=== PATIENT | female | born 1985 | race Caucasian/White ===

== ENCOUNTER 2017-07-08 18:37 | Emergency (ER) | payer SELFPAY ==
[2017-07-08] MEDS ORDERED: ONDANSETRON 4 MG (ODT) TAB ONE (19:30)
[2017-07-08] MEDS ORDERED: TRAMADOL HCL 50 MG TAB ONE (19:30)
--- NOTE | 2017-07-08 19:34 | RAD REPORT ---
EXAM DESCRIPTION: CT - Head Brain Wo Cont - 07/08/2017 7:19 pm CLINICAL HISTORY: Head injury after at 4 p.m. today. Hit head on light COMPARISON: 2015 TECHNIQUE: Computed axial tomography of the head was obtained. IV contrast was not requested. All CT scans are performed using dose optimization technique as appropriate and may include automated exposure control or mA/KV adjustment according to patient size. FINDINGS: An intracranial bleed is not seen . The ventricles are normal in caliber. No extra-axial fluid collection is noted. Fluid within the sinuses/ mastoids is not seen. IMPRESSION: No acute intracranial abnormality is seen. If patient's symptoms persist MRI of the bra in would be recommended.
--- NOTE | 2017-07-08 20:18 | EDPHYS ---
Physician Documentation [facility] Name: Veronica Valentin Age: 31 yrs Sex: Female : 1985 Arrival Date: 07/08/2017 Time: 18:40 Bed 6 Private MD: ED Physician Reggie Baez HPI: 07/08 19:12 This 31 yrs old Female presents to ER via EMS with complaints of Head Injury pkl Without LOC-Adult. 19:12 The patient or guardian reports injury, pain. The complaints affect the top of head. pkl Context of injury: resulted from a direct blow, Hit by fan. Onset: The symptoms/episode began/occurred last night. Associated signs and symptoms: Loss of consciousness: This patient did not experience any loss of consciousness. Pertinent positives: headache, nausea. 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 - Social history:: Smoking status: Patient uses tobacco products. ROS: 19:12 Eyes: Negative for injury, pain, redness, and discharge, ENT: Negative for injury, pkl pain, and discharge, Neck: Negative for injury, pain, and swelling, Cardiovascular: Negative for chest pain, palpitations, and edema, Respiratory: Negative for shortness of breath, cough, wheezing, and pleuritic chest pain. 19:12 Abdomen/GI: Positive for nausea. 19:12 Back: Negative for injury or acute deformity, acute changes. 19:12 : Negative for urinary symptoms. 19:12 MS/extremity: Negative for acute changes. 19:12 Skin: Negative for rash. 19:12 Neuro: Negative for altered mental status. Exam: 19:12 Eyes: Pupils equal round and reactive to light, extra-ocular motions intact. Lids and pkl lashes normal. Conjunctiva and sclera are non-icteric and not injected. Cornea within normal limits. Periorbital areas with no swelling, redness, or edema. 19:12 Head/face: Noted is contusion, of the top of head. 19:12 ENT: Exam is negative for acute changes. 19:12 Neck: Exam negative for nuchal rigidity. 19:12 Chest/axilla: Exam negative for acute changes. 19:12 Cardiovascular: Rate: normal, Rhythm: regular. 19:12 Respiratory: the patient does not display signs of respiratory distress, Respirations: normal, Breath sounds: are clear throughout. 19:12 Abdomen/GI: Bowel sounds: normal, Palpation: abdomen is soft and non-tender, in all quadrants. 19:12 Back: Exam negative for acute changes. 19:12 : Exam negative for acute changes. 19:12 Musculoskeletal/extremity: Exam is negative for acute changes. 19:12 Skin: Exam negative for rash. 19:12 Neuro: Orientation: is normal, Mentation: is normal, Cranial nerves: grossly normal, Motor: is normal. Vital Signs: 18:49 BP 105 / 54; Pulse 84; Resp 16 S; Temp 97.7(O); Pulse Ox 99% on R/A; Weight 48.99 kg jl7 (R); Height 5 ft. 7 in. (170.18 cm) (R); Pain 8/10; 20:26 BP 104 / 66; Pulse 58; Resp 18 S; Temp 98.0; Pulse Ox 100% on R/A; Pain 0/10; ea 18:49 Body Mass Index 16.92 (48.99 kg, 170.18 cm) jl7 Mary Coma Score: 19:12 Eye Response: spontaneous(4). Verbal Response: oriented(5). Motor Response: obeys pkl commands(6). Total: 15. MDM: 19:04 Patient medically screened. pkl 20:17 Data reviewed: vital signs, nurses notes, radiologic studies, CT scan. pkl 07/08 19:11 Order name: CT Head Brain wo Cont; Complete Time: 20:15 pkl Administered Medications: 19:14 Drug: UltRAM 50 mg Route: PO; ak1 20:36 Follow up: Response: No adverse reaction; Pain is decreased ak1 19:15 Drug: Zofran 4 mg Route: PO; ak1 20:37 Follow up: Response: No adverse reaction; Pain is decreased ak1 Disposition: 07/08/17 20:18 Discharged to Home. Impression: Acute headache. S/P head injury. - Condition is Stable. - Prescriptions for Ultram 50 mg Oral Tablet - take 1 tablet by ORAL route every 8 hours As needed; 15 tablet. Zofran 4 mg Oral Tablet - take 1 tablet by ORAL route every 12 hours As needed; 6 tablet. - Medication Reconciliation Form, Thank You Letter, Antibiotic Education, Prescription Opioid Use form. - Follow up: Private Physician; When: 2 - 3 days; Reason: Re-evaluation by your physician. - Problem is new. - Symptoms have improved. Signatures: Dispatcher [employer] EDReggie Mullins MD MD pkl Krenek, Amber RN RN ak1 Ashlie Peterson RN RN jl7 Elenita Ashraf RN RN ea
--- NOTE | 2017-07-08 20:18 | ER ---
Nurse's Notes [facility] Name: Veronica Valentin Age: 31 yrs Sex: Female : 1985 Arrival Date: 07/08/2017 Time: 18:40 Bed 6 Private MD: Diagnosis: Acute headache. S/P head injury Presentation: 07/08 18:45 Presenting complaint: EMS states: At 2300 last night she got hit in the head with a fan jl7 while putting up rope lights. Today at 1600 while at [facility] she got nauseated and started having a severe ARREDONDO. Transition of care: patient was not received from another setting of care. Onset of symptoms was July 08, 2017 at 14:00. Care prior to arrival: IV initiated. 20 GA, in the right forearm. 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 - Social history:: Smoking status: Patient uses tobacco products. Screenin:16 Abuse screen: Denies threats or abuse. Denies injuries from another. Nutritional ak1 screening: No deficits noted. Tuberculosis screening: No symptoms or risk factors identified. Fall Risk None identified. Assessment: 19:15 General: Appears uncomfortable, slender, Behavior is crying. Pain: Complains of pain in ak1 top of head. Neuro: Level of Consciousness is awake, alert, obeys commands, Oriented to person, place, time, situation, Inspector Rough Castings are equal bilaterally Moves all extremities. Gait is steady, Speech is normal, Facial symmetry appears normal, Pupils are PERRLA. Cardiovascular: No deficits noted. Respiratory: No deficits noted. GI: No signs and/or symptoms were reported involving the gastrointestinal system. : No signs and/or symptoms were reported regarding the genitourinary system. EENT: No signs and/or symptoms were reported regarding the EENT system. Derm: No signs and/or symptoms reported regarding the dermatologic system. Musculoskeletal: No signs and/or symptoms reported regarding the musculoskeletal system. 20:28 Reassessment: Patient and/or family updated on plan of care and expected duration. Pain ea level reassessed. Patient is alert, oriented x 3, equal unlabored respirations, skin warm/dry/pink. Discharge instructions given to patient and family, verbalized understanding of instruction. Vital Signs: 18:49 BP 105 / 54; Pulse 84; Resp 16 S; Temp 97.7(O); Pulse Ox 99% on R/A; Weight 48.99 kg jl7 (R); Height 5 ft. 7 in. (170.18 cm) (R); Pain 8/10; 20:26 BP 104 / 66; Pulse 58; Resp 18 S; Temp 98.0; Pulse Ox 100% on R/A; Pain 0/10; ea 18:49 Body Mass Index 16.92 (48.99 kg, 170.18 cm) jl7 Mary Coma Score: 19:12 Eye Response: spontaneous(4). Verbal Response: oriented(5). Motor Response: obeys pkl commands(6). Total: 15. ED Course: 18:40 Patient arrived in ED. ae1 18:48 Triage completed. jl7 18:49 Arm band placed on right wrist. jl7 19:01 Chrystal Melendez, RN is Primary Nurse. ak1 19:04 Reggie Baez MD is Attending Physician. pkl 19:16 Patient has correct armband on for positive identification. Bed in low position. Call ak1 light in reach. Side rails up X2. Pulse ox on. NIBP on. 19:[address] via wheelchair. nj 19:19 CT Head Brain wo Cont In Process Unspecified. EDMS 19:34 No provider procedures requiring assistance completed. Maintain EMS IV. Dressing ak1 intact. Site clean \T\ dry. Gauge \T\ site: 20g right hand. 20:35 IV discontinued, intact, bleeding controlled, No redness/swelling at site. Pressure ak1 dressing applied. Administered Medications: 19:14 Drug: UltRAM 50 mg Route: PO; ak1 20:36 Follow up: Response: No adverse reaction; Pain is decreased ak1 19:15 Drug: Zofran 4 mg Route: PO; ak1 20:37 Follow up: Response: No adverse reaction; Pain is decreased ak1 Outcome: 20:18 Discharge ordered by . michelle 20:35 Condition: good ak1 20:36 Discharged to home via wheelchair, with family. ea 20:36 Discharge instructions given to patient, family, Instructed on discharge instructions, follow up and referral plans. medication usage, Demonstrated understanding of instructions, follow-up care, medications, Prescriptions given X 2. 20:38 Patient left the ED. ea Signatures: Dispatcher [employer] EDMS Reggie Baez MD MD pkl Krenek, Amber RN RN ak1 Jeff Ward RN RN ae1 Edwin Saldivar Jahala, RN RN jl7 Elenita Ashraf RN RN ea
[2017-07-08 20:46] VITALS: BP 104/66; TEMP 98; O2SAT 100
== END 2017-07-08 20:38 | disposition home or self-care (01) ==
LOC: ER 18:37
DX: Z91.013 Allergy to seafood; W22.8XXA Striking against or struck by other objects, initial encounter; Z88.8 Allergy status to other drugs, medicaments and biological substances; Z72.0 Tobacco use; Z91.048 Other nonmedicinal substance allergy status; Z88.5 Allergy status to narcotic agent; R51 Headache
CPT/HCPCS: 70450; 99284

== ENCOUNTER 2017-10-07 16:47 | Emergency (ER) | payer SELFPAY ==
--- NOTE | 2017-10-07 17:50 | EDPHYS ---
Physician Documentation [facility] Name: Veronica Valentin Age: 32 yrs Sex: Female : 1985 Arrival Date: 10/07/2017 Time: 16:50 Bed 13 Private MD: None, None ED Physician Wilfredo Viramontes HPI: 10/07 17:45 This 32 yrs old Female presents to ER via Ambulatory with complaints of natasha Allergic Reaction. 17:45 The patient presents with difficulty swallowing, rash, swelling of the tongue. Onset: natasha The symptoms/episode began/occurred just prior to arrival, this morning. Associated signs and symptoms: The patient has no apparent associated signs or symptoms. Associated signs and symptoms: The patient has no apparent associated signs or symptoms. Possible causes: unk. At home the patient or guardian has treated the symptoms with nothing. Severity of symptoms: At their worst the symptoms were mild in the emergency department the symptoms are unchanged. The patient has not experienced similar symptoms in the past. Historical: - Allergies: 16:55 Benadryl; ss 16:55 Iodine; ss 16:55 Morphine; ss 16:55 Phenergan (Hallucinations); ss 16:55 SHELLFISH; ss - PMHx: 16:55 Asthma; coma; DIC; uncontrolled nausea; ss - PSHx: 16:55 Cholecystectomy; Hysterectomy; ; Tonsillectomy; abd mesh; ss - Immunization history:: Adult Immunizations up to date. - Social history:: Smoking status: Patient/guardian denies using tobacco. - Ebola Screening: : Patient denies exposure to infectious person Patient denies travel to an Ebola-affected area in the 21 days before illness onset. - Family history:: not pertinent. ROS: 17:45 Constitutional: Negative for fever, chills, and weight loss, Eyes: Negative for injury, natasha pain, redness, and discharge, Neck: Negative for injury, pain, and swelling, Cardiovascular: Negative for chest pain, palpitations, and edema, Respiratory: Negative for shortness of breath, cough, wheezing, and pleuritic chest pain, Abdomen/GI: Negative for abdominal pain, nausea, vomiting, diarrhea, and constipation, Back: Negative for injury and pain, : Negative for injury, bleeding, discharge, and swelling, MS/Extremity: Negative for injury and deformity, Skin: Negative for injury, rash, and discoloration, Neuro: Negative for headache, weakness, numbness, tingling, and seizure, Psych: Negative for depression, anxiety, suicide ideation, homicidal ideation, and hallucinations, Allergy/Immunology: Negative for hives, rash, and allergies, Endocrine: Negative for neck swelling, polydipsia, polyuria, polyphagia, and marked weight changes, Hematologic/Lymphatic: Negative for swollen nodes, abnormal bleeding, and unusual bruising. 17:45 ENT: Negative for sinus congestion, difficulty swallowing, difficulty handling secretions. Exam: 17:45 Constitutional: This is a well developed, well nourished patient who is awake, alert, natasha and in no acute distress. Head/Face: Normocephalic, atraumatic. Eyes: Pupils equal round and reactive to light, extra-ocular motions intact. Lids and lashes normal. Conjunctiva and sclera are non-icteric and not injected. Cornea within normal limits. Periorbital areas with no swelling, redness, or edema. Neck: Trachea midline, no thyromegaly or masses palpated, and no cervical lymphadenopathy. Supple, full range of motion without nuchal rigidity, or vertebral point tenderness. No Meningismus. Chest/axilla: Normal chest wall appearance and motion. Nontender with no deformity. No lesions are appreciated. Cardiovascular: Regular rate and rhythm with a normal S1 and S2. No gallops, murmurs, or rubs. Normal PMI, no JVD. No pulse deficits. Respiratory: Lungs have equal breath sounds bilaterally, clear to auscultation and percussion. No rales, rhonchi or wheezes noted. No increased work of breathing, no retractions or nasal flaring. Abdomen/GI: Soft, non-tender, with normal bowel sounds. No distension or tympany. No guarding or rebound. No evidence of tenderness throughout. Back: No spinal tenderness. No costovertebral tenderness. Full range of motion. Skin: Warm, dry with normal turgor. Normal color with no rashes, no lesions, and no evidence of cellulitis. MS/ Extremity: Pulses equal, no cyanosis. Neurovascular intact. Full, normal range of motion. Neuro: Awake and alert, GCS 15, oriented to person, place, time, and situation. Cranial nerves II-XII grossly intact. Motor strength 5/5 in all extremities. Sensory grossly intact. Cerebellar exam normal. Normal gait. Psych: Awake, alert, with orientation to person, place and time. Behavior, mood, and affect are within normal limits. 17:45 ENT: TM's: are normal, no acute changes, Nose: is normal, Posterior pharynx: is normal, no acute changes, Airway: normal, no evidence of obstruction, Tonsils: are normal in appearance. Vital Signs: 16:55 BP 146 / 101; Pulse 110; Resp 18; Temp 98.9(TE); Pulse Ox 99% on R/A; Weight 50.8 kg; ss Height 5 ft. 7 in. (170.18 cm); 16:55 Body Mass Index 17.54 (50.80 kg, 170.18 cm) ss MDM: 16:57 Patient medically screened. [facility] 17:48 Data reviewed: vital signs, nurses notes. [facility] Administered Medications: 18:18 Drug: Pepcid 40 mg Route: PO; ph 18:18 Follow up: Response: No adverse reaction ph 18:18 Drug: predniSONE 40 mg Route: PO; ph 18:18 Follow up: Response: No adverse reaction ph Disposition: 10/07/17 17:49 Discharged to Home. Impression: Angioneurotic edema. - Condition is Stable. - Discharge Instructions: Allergies, Food Allergy, Food Allergy and Anaphylaxis, Food Allergy, [id number], Allergies, [id number]. - Prescriptions for EpiPen 0.3 mg Injection auto- injector - inject 1 pen by INTRAMUSCULAR route one time Inject into the outer portion of the thigh, through clothing if necessary. Indicated in the emergency treatment of allergic reactions; 1 box. Pepcid 20 mg Oral Tablet - take 1 tablet by ORAL route every 12 hours for 10 days; 20 tablet. Claritin 10 mg Oral Tablet - take 1 tablet by ORAL route once daily As needed; 30 tablet. Medrol (Jose) 4 mg Oral Tablets, Dose Pack - take 1 tablet by ORAL route as directed - follow package instructions; 1 packet. - Medication Reconciliation Form, Thank You Letter, Antibiotic Education, Prescription Opioid Use form. - Follow up: Private Physician; When: 2 - 3 days; Reason: Recheck today's complaints, Continuance of care, Re-evaluation by your physician. - Problem is new. - Symptoms have improved. Signatures: Wilfredo Viramontes MD MD cha Smirch, Shelby, RN RN ss Petra Hart RN RN ph Corrections: (The following items were deleted from the chart) 18:22 17:49 10/07/2017 17:49 Discharged to Home. Impression: Angioneurotic edema. Condition ph is Stable. Forms are Medication Reconciliation Form, Thank You Letter, Antibiotic Education, Prescription Opioid Use. Follow up: Private Physician; When: 2 - 3 days; Reason: Recheck today's complaints, Continuance of care, Re-evaluation by your physician. Problem is new. Symptoms have improved. natasha
--- NOTE | 2017-10-07 17:50 | ER ---
Nurse's Notes [facility] Name: Veronica Valentin Age: 32 yrs Sex: Female : 1985 Arrival Date: 10/07/2017 Time: 16:50 Bed 13 Private MD: None, None Diagnosis: Angioneurotic edema Presentation: 10/07 16:53 Presenting complaint: Patient states: tight, raw throat that began 1 hour ago. Pt ss believes this is the third time in three days that she has had a mild allergic reaction to something unknown. Transition of care: patient was not received from another setting of care. Onset: The symptoms/episode began/occurred 1 hour(s) ago. Anaphylaxis evaluation, no signs or symptoms of anaphylaxis were noted. Onset of symptoms is unknown. Risk Assessment: Do you want to hurt yourself or someone else? Patient reports no desire to harm self or others. Initial Sepsis Screen: Does the patient meet any 2 criteria? No. Patient's initial sepsis screen is negative. Does the patient have a suspected source of infection? No. Patient's initial sepsis screen is negative. Care prior to arrival: None. 16:53 Method Of Arrival: Ambulatory ss 16:53 Acuity: BREANNA 4 ss Historical: - Allergies: 16:55 Benadryl; ss 16:55 Iodine; ss 16:55 Morphine; ss 16:55 Phenergan (Hallucinations); ss 16:55 SHELLFISH; ss - PMHx: 16:55 Asthma; coma; DIC; uncontrolled nausea; ss - PSHx: 16:55 Cholecystectomy; Hysterectomy; ; Tonsillectomy; abd mesh; ss - Immunization history:: Adult Immunizations up to date. - Social history:: Smoking status: Patient/guardian denies using tobacco. - Ebola Screening: : Patient denies exposure to infectious person Patient denies travel to an Ebola-affected area in the 21 days before illness onset. - Family history:: not pertinent. Screenin:05 Abuse screen: Denies threats or abuse. Denies injuries from another. Nutritional ph screening: On. Tuberculosis screening: No symptoms or risk factors identified. Fall Risk None identified. Vital Signs: 16:55 BP 146 / 101; Pulse 110; Resp 18; Temp 98.9(TE); Pulse Ox 99% on R/A; Weight 50.8 kg; ss Height 5 ft. 7 in. (170.18 cm); 16:55 Body Mass Index 17.54 (50.80 kg, 170.18 cm) ED Course: 16:50 Patient arrived in ED. sb2 16:50 None, None is Private Physician. sb2 16:55 Triage completed. 16:55 Arm band placed on right wrist. 16:57 Wilfredo Viramontes MD is Attending Physician. [facility] 17:04 Petra Hart, RN is Primary Nurse. ph 17:30 Patient has correct armband on for positive identification. Bed in low position. Call ph light in reach. Side rails up X 1. Administered Medications: 18:18 Drug: Pepcid 40 mg Route: PO; ph 18:18 Follow up: Response: No adverse reaction ph 18:18 Drug: predniSONE 40 mg Route: PO; ph 18:18 Follow up: Response: No adverse reaction ph Outcome: 17:49 Discharge ordered by . natasha 18:22 Patient left the ED. ph Signatures: Wilfredo Viramontes MD MD cha Smirch, Shelby, RN RN Petra Hart RN RN Carolyne Cormier sb2
[2017-10-07] MEDS ORDERED: FAMOTIDINE 20 MG TAB ONE (18:09)
[2017-10-07] MEDS ORDERED: predniSONE 20 MG TAB ONE (18:09)
[2017-10-07 18:45] VITALS: BP 146/101; TEMP 98.9; O2SAT 99
== END 2017-10-07 18:22 | disposition home or self-care (01) ==
LOC: ER 16:47
DX: T78.3XXA Angioneurotic edema, initial encounter (principal); X58.XXXA Exposure to other specified factors, initial encounter; Y92.019 Unspecified place in single-family (private) house as the place of occurrence of the external cause; Z88.8 Allergy status to other drugs, medicaments and biological substances; Z88.5 Allergy status to narcotic agent; Z91.013 Allergy to seafood; D65 Disseminated intravascular coagulation [defibrination syndrome]
CPT/HCPCS: 99282; J7512

== ENCOUNTER 2017-11-11 09:14 | Emergency (ER) | payer SELFPAY ==
[2017-11-11] MEDS ORDERED: KETOROLAC 30 MG/ML INJ ONE (10:41)
--- NOTE | 2017-11-11 10:45 | RAD REPORT ---
EXAM DESCRIPTION: VAS - Extrem Venous W Compress Jayme - 11/11/2017 10:31 am CLINICAL HISTORY: PAIN Bilateral leg edema and swelling. COMPARISON: EXT VENOUS UNI LTD dated 01/08/2015 TECHNIQUE: Real-time sonographic interrogation of the left and right lower extremity deep venous sys tems was performed. FINDINGS: Normal compressibility, flow augmentation, phasic flow and spontaneous flow is identified in both the left and right lower extremity deep venous systems. IMPRESSION: No sonographic evidence of left or right lower extremity deep venous thrombosis.
[2017-11-11 11:23] LABS: Protime INR 1.06
--- NOTE | 2017-11-11 11:47 | RAD REPORT ---
EXAM DESCRIPTION: RAD - Hip Left 2 View - 11/11/2017 11:25 am CLINICAL HISTORY: PAIN COMPARISON: No comparisons FINDINGS: Mild arthritic changes involve the left hip. No fracture, dislocation or AVN.
--- NOTE | 2017-11-11 11:49 | RAD REPORT ---
EXAM DESCRIPTION: RAD - Chest Single View - 11/11/2017 11:25 am CLINICAL HISTORY: CHEST PAIN Chest pain. COMPARISON: Abdomen Acute Series dated 01/19/2017; CHEST SINGLE VIEW dated 03/21/2014; CHEST SINGLE EW dated 02/14/2014; CHEST SINGLE VIEW dated 05/15/2013 FINDINGS: Portable technique limits examination quality. Chronic elevation left hemidiaphragm noted. The lungs are clear of acute infiltrate. The heart is nor mal in size. No displaced fractures. IMPRESSION: No acute intrathoracic process suspected.
[2017-11-11] MEDS ORDERED: NA CHLORIDE 0.9% 1,000 ML ONE (11:55)
[2017-11-11 12:28] LABS: Absolute Monocytes 0.5 K/uL (0.1-1.3); Basophils % 0.7 % (0-1.3); Eosinophils % 1.8 % (0-4.4); Hematocrit 37.1 % (36.0-45.0); Lymphocytes % 17.9 % (15.3-44.8); MCH 28.8 pg (27.0-35.0); MCV 85.6 fL (80-100); MPV 10.8 fL (7.6-11.3); Monocytes % 9.5 % (3.3-12.3); RBC Red Blood Cell Count 4.33 M/uL (3.86-4.86)
[2017-11-11 12:58] LABS: Barbiturates NEGATIVE (NEGATIVE); Benzodiazepines NEGATIVE (NEGATIVE); Cocaine NEGATIVE (NEGATIVE); METHAMPHETAM POSITIVE (NEGATIVE); Methadone NEGATIVE (NEGATIVE); Opiates NEGATIVE (NEGATIVE); Phencyclidine NEGATIVE (NEGATIVE); THC Cannibis NEGATIVE (NEGATIVE)
[2017-11-11 13:14] LABS: Urine Blood NEGATIVE (NEG); Urine Glucose NEGATIVE (NEG); Urine Protein 1+ (NEG); Urine Specific Gravity 1.025 (1.005-1.030)
[2017-11-11 13:21] LABS: ALT/SGPT 26 U/L (12-78); AST/SGOT 21 U/L (15-37); Albumin 4.4 g/dL (3.4-5.0); Alkaline Phosphatase 82 U/L (45-117); BUN Blood Urea Nitrogen 22 mg/dL (7-18); Bicarbonate 28 mmol/L (21-32); Bilirubin Direct < 0.1 mg/dL (0-0.2); Bilirubin Total 0.3 mg/dL (0.2-1.0); CKMB Creatine Kinase MB 1.9 ng/mL (0.3-3.6); Creatine Phosphokinase 207 U/L (26-192); Glucose Level 83 mg/dL (74-106); Magnesium 2.6 mg/dL (1.8-2.4); Potassium 3.5 mmol/L (3.5-5.1); Protein, Total 8.1 g/dL (6.4-8.2); Sodium Level 139 mmol/L (136-145)
--- NOTE | 2017-11-11 13:31 | EDPHYS ---
Physician Documentation [facility] Name: Veronica Valentin Age: 32 yrs Sex: Female : 1985 Arrival Date: 11/11/2017 Time: 09:16 Bed 15 Private MD: ED Physician Wilfredo Viramontes HPI: 11/11 10:12 This 32 yrs old Female presents to ER via Ambulatory with complaints of Leg cp Swelling. 10:12 The patient presents with pain. The complaints affect the right leg and left leg. cp Context: resulted from an unknown cause, the patient can fully bear weight, the patient is able to ambulate. Onset: The symptoms/episode began/occurred 1 month(s) ago. Associated signs and symptoms: Pertinent positives: calf tenderness, chest pain, left hip pain, Pertinent negatives fever, numbness, tingling, warmth, weakness. 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 - Social history:: Smoking status: Patient/guardian denies using tobacco. - Ebola Screening: : Patient negative for fever greater than or equal to 101.5 degrees Fahrenheit, and additional compatible Ebola Virus Disease symptoms Patient denies exposure to infectious person Patient denies travel to an Ebola-affected area in the 21 days before illness onset No symptoms or risks identified at this time. ROS: 10:15 Constitutional: Negative for body aches, chills, fever, poor PO intake. cp 10:15 Eyes: Negative for injury, pain, redness, and discharge. cp 10:15 ENT: Negative for drainage from ear(s), ear pain, sore throat, difficulty swallowing, difficulty handling secretions. 10:15 Cardiovascular: Positive for chest pain, Negative for edema, palpitations. 10:15 Respiratory: Negative for cough, shortness of breath, wheezing. 10:15 Abdomen/GI: Negative for abdominal pain, nausea, vomiting, and diarrhea, black/tarry stool, rectal bleeding. 10:15 Back: Positive for upper back pain, Negative for injury or acute deformity, decreased range of motion. 10:15 : Negative for urinary symptoms, vaginal bleeding, vaginal discharge. 10:15 MS/extremity: Positive for pain, of the right leg and left leg, intermittent swelling of legs, Negative for injury or acute deformity, decreased range of motion, paresthesias. 10:15 Skin: Negative for cellulitis, rash. 10:15 Neuro: Negative for altered mental status, dizziness, headache, syncope, near syncope, weakness. 10:15 All other systems are negative. Exam: 10:20 Constitutional: The patient appears in no acute distress, alert, awake, cp non-diaphoretic, non-toxic, well developed, well nourished. 10:20 Head/Face: Normocephalic, atraumatic. cp 10:20 Eyes: Periorbital structures: appear normal, Conjunctiva: normal, no exudate, no injection, Sclera: no appreciated abnormality, Lids and lashes: appear normal, bilaterally. 10:20 ENT: External ear(s): are unremarkable, Ear canal(s): are normal, clear, TM's: bulging, is not appreciated, bilaterally, dullness, bilaterally, erythema, is not appreciated, bilaterally, Nose: is normal, Mouth: Lips: moist, Oral mucosa: pink and intact, moist, Posterior pharynx: is normal, airway is patent, no erythema, no exudate, Voice: is normal. 10:20 Neck: ROM/movement: is normal, is supple, without pain, no range of motions limitations, no nuchal rigidity. 10:20 Chest/axilla: Inspection: normal, Palpation: is normal, no crepitus, no tenderness. 10:20 Cardiovascular: Rate: normal, Rhythm: regular, Pulses: Pulses are 2+ in right radial artery and left radial artery. Edema: is not appreciated, JVD: is not appreciated. 10:20 Respiratory: the patient does not display signs of respiratory distress, Respirations: normal, no use of accessory muscles, no retractions, no splinting, no tachypnea, labored breathing, is not present, Breath sounds: are clear throughout, no decreased breath sounds, no stridor, no wheezing. 10:20 Abdomen/GI: Inspection: abdomen appears normal, Bowel sounds: active, all quadrants, Palpation: abdomen is soft and non-tender, in all quadrants, rebound tenderness, is not appreciated, voluntary guarding, is not appreciated, involuntary guarding, is not appreciated. 10:20 Back: pain, that is mild, of the upper back area. 10:20 Musculoskeletal/extremity: Exam is negative for decreased range of motion, deformity, edema, erythema, injury, swelling, Extremities: grossly normal except: noted in the right leg and left leg: pain, tenderness. 10:20 Skin: cellulitis, is not appreciated, no rash present. 10:20 Neuro: Orientation: to person, place \T\ time. Mentation: lucid, able to follow commands, Cerebellar function: is grossly normal, Motor: moves all fours, strength is normal, Sensation: no obvious gross deficits. 10:40 ECG was reviewed by the Attending Physician. cp Vital Signs: 09:29 BP 124 / 90; Pulse 95; Resp 16; Temp 98.2; Pulse Ox 100% on R/A; Weight 51.71 kg; iw Height 5 ft. 7 in. (170.18 cm); Pain 6/10; 11:41 BP 96 / 64; Pulse 63; Resp 16; Pulse Ox 99% on R/A; aj 11:50 BP 84 / 58; Pulse 47; Resp 19; Pulse Ox 99% on R/A; aj 12:19 BP 99 / 71; Pulse 57; Resp 19; Pulse Ox 100% on R/A; aj 13:30 BP 101 / 62; Pulse 63; Resp 20; Pulse Ox 99% on R/A; aj 09:29 Body Mass Index 17.85 (51.71 kg, 170.18 cm) iw 11:50 Patient appears drowsy in room but is easily aroused by voice. Provider notified of aj patient vital signs. NS bolus ordered. IV site inspected, appears to have a small puncture in center of site. Provider notified. UDS ordered. Urine obtained. MDM: 09:19 Patient medically screened. cp 13:28 Data reviewed: vital signs, nurses notes, lab test result(s), EKG, radiologic studies, cp plain films, ultrasound. 13:28 Test interpretation: by ED physician or midlevel provider: ECG, plain radiologic cp studies. Counseling: I had a detailed discussion with the patient and/or guardian regarding: the historical points, exam findings, and any diagnostic results supporting the discharge/admit diagnosis, lab results, radiology results, to return to the emergency department if symptoms worsen or persist or if there are any questions or concerns that arise at home. Response to treatment: the patient's symptoms have mildly improved after treatment, and as a result, I will discharge patient. 11/11 09:58 Order name: Basic Metabolic Panel; Complete Time: 13:25 cp 11/11 13:25 Interpretation: Normal except: BUN 22; GFR 83. cp 11/11 09:58 Order name: CBC with Diff; Complete Time: 12:41 cp 11/11 12:41 Interpretation: Reviewed. cp 11/11 09:58 Order name: Ckmb; Complete Time: 13:25 cp 11/11 09:58 Order name: CPK; Complete Time: 13:25 cp 11/11 09:58 Order name: LFT's; Complete Time: 13:25 cp 11/11 09:58 Order name: Magnesium; Complete Time: 13:25 cp 11/11 09:57 Order name: XRAY Hip LEFT 2 view; Complete Time: 11:50 cp 11/11 11:50 Interpretation: Report reviewed. cp 11/11 09:57 Order name: US Extremity Venous W Compression Jayme; Complete Time: 11:50 cp 11/11 11:51 Interpretation: Report reviewed. 11/11 09:58 Order name: PT-INR; Complete Time: 11:50 cp 11/11 09:58 Order name: Ptt, Activated; Complete Time: 11:50 cp 11/11 09:58 Order name: Troponin (emerg Dept Use Only); Complete Time: 11:50 cp 11/11 13:26 Interpretation: TROPED < 0.02; Reviewed. cp 11/11 11:56 Order name: UDS; Complete Time: 13:25 cp 11/11 12:18 Order name: Urine Dipstick--Ancillary (enter results); Complete Time: 13:25 mw2 11/11 13:25 Interpretation: Normal except: UPROT 1+; UESTR TRACE. cp 11/11 12:18 Order name: Urine --Ancillary (enter results); Complete Time: 13:25 mw2 11/11 09:58 Order name: XRAY Chest (1 view); Complete Time: 11:50 cp 11/11 09:58 Order name: EKG; Complete Time: 09:59 cp 11/11 09:58 Order name: Cardiac monitoring; Complete Time: 10:05 11/11 09:58 Order name: EKG - Nurse/Tech; Complete Time: 11:01 11/11 09:58 Order name: IV Saline Lock; Complete Time: 11:01 11/11 09:58 Order name: Labs collected and sent; Complete Time: 11: 11/11 09:58 Order name: O2 Per Protocol; Complete Time: 10:06 11/11 09:58 Order name: O2 Sat Monitoring; Complete Time: 10:06 EC:40 Rate is 57 beats/min. Rhythm is regular. FL interval is normal. QRS interval is normal. cp QT interval is normal. T waves are Inverted in leads aVL, V2. Interpreted by me. Reviewed by me. Administered Medications: 10:45 Drug: TORadol 30 mg Route: IVP; Site: right antecubital; iw 11:05 Follow up: Response: No adverse reaction 11:53 Drug: NS 0.9% 1000 ml Route: IV; Rate: 1 bolus; Site: right antecubital; aj 13:46 Follow up: Response: No adverse reaction; IV Status: Completed infusion; IV Intake: aj 1000ml Disposition: 11/12 06:59 Co-signature as Attending Physician, Wilfredo Viramontes MD I agree with the assessment and natasha plan of care. Disposition: 11/11/17 13:30 Discharged to Home. Impression: Adverse effect of amphetamines, Pain in left leg, Pain in right leg, Other chest pain. - Condition is Stable. - Discharge Instructions: Nonspecific Chest Pain, Musculoskeletal Pain, Stimulant Use Disorder-Methamphetamines. - Prescriptions for Naprosyn 500 mg Oral Tablet - take 1 tablet by ORAL route 2 times per day take with food; 20 tablet. - Medication Reconciliation Form, Thank You Letter, Antibiotic Education, Prescription Opioid Use form. - Follow up: Private Physician; When: 1 - 2 days; Reason: Recheck today's complaints. - Problem is new. - Symptoms have improved. Signatures: Dispatcher [employer] Gifty Turner RN RN aj Anderson, Corey, MD MD cha Williams, Irene, RN RN iw Joaquin, Henry, RN RN hj Page, Corey, PA PA cp Corrections: (The following items were deleted from the chart) 11/11 13:47 13:30 11/11/2017 13:30 Discharged to Home. Impression: Adverse effect of amphetamines; aj Pain in left leg; Pain in right leg; Other chest pain. Condition is Stable. Forms are Medication Reconciliation Form, Thank You Letter, Antibiotic Education, Prescription Opioid Use. Follow up: Private Physician; When: 1 - 2 days; Reason: Recheck today's complaints. Problem is new. Symptoms have improved. cp
--- NOTE | 2017-11-11 13:31 | ER ---
Nurse's Notes [facility] Name: Veronica Valentin Age: 32 yrs Sex: Female : 1985 Arrival Date: 11/11/2017 Time: 09:16 Bed 15 Private MD: Diagnosis: Adverse effect of amphetamines;Pain in left leg;Pain in right leg;Other chest pain Presentation: 11/11 09:27 Presenting complaint: Patient states: c/o paola leg pain and leg swelling in the mornings iw when she wakes up, radiates up to her hips, also has tightness in her chest and pain to left upper back. Transition of care: patient was not received from another setting of care. Onset of symptoms was November 04, 2017. Risk Assessment: Do you want to hurt yourself or someone else? Patient reports no desire to harm self or others. Initial Sepsis Screen: Does the patient meet any 2 criteria? No. Patient's initial sepsis screen is negative. Does the patient have a suspected source of infection? No. Patient's initial sepsis screen is negative. Care prior to arrival: None. 09:27 Method Of Arrival: Ambulatory iw 09:27 Acuity: BREANNA 3 iw Triage Assessment: 09:38 General: Appears in no apparent distress. uncomfortable, Behavior is calm, cooperative, hj appropriate for age. Pain: Complains of pain in epigastric area. 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 - Social history:: Smoking status: Patient/guardian denies using tobacco. - Ebola Screening: : Patient negative for fever greater than or equal to 101.5 degrees Fahrenheit, and additional compatible Ebola Virus Disease symptoms Patient denies exposure to infectious person Patient denies travel to an Ebola-affected area in the 21 days before illness onset No symptoms or risks identified at this time. Screenin:38 Abuse screen: Denies threats or abuse. Denies injuries from another. Nutritional hj screening: No deficits noted. Tuberculosis screening: No symptoms or risk factors identified. Fall Risk None identified. Assessment: 11:41 General: Appears in no apparent distress. comfortable, Behavior is calm, cooperative, aj appropriate for age. Neuro: Level of Consciousness is awake, alert, obeys commands, Oriented to person, place, time, situation, Appropriate for age. Respiratory: Airway is patent Respiratory effort is even, unlabored, Respiratory pattern is regular, symmetrical. Derm: Skin is intact, is healthy with good turgor, Skin is pink, warm \T\ dry. normal. 11:43 Musculoskeletal: Range of motion: intact in all extremities, Swelling absent. aj 12:08 Reassessment: Patient requested to use phone at nurses station. Alert and oriented. aj Steady gait. 13:45 Reassessment: Patient appears in no apparent distress at this time. No changes from aj previously documented assessment. Patient and/or family updated on plan of care and expected duration. Pain level reassessed. Patient is alert, oriented x 3, equal unlabored respirations, skin warm/dry/pink. Patient states feeling better. Patient states symptoms have improved. Vital Signs: 09:29 BP 124 / 90; Pulse 95; Resp 16; Temp 98.2; Pulse Ox 100% on R/A; Weight 51.71 kg; iw Height 5 ft. 7 in. (170.18 cm); Pain 6/10; 11:41 BP 96 / 64; Pulse 63; Resp 16; Pulse Ox 99% on R/A; aj 11:50 BP 84 / 58; Pulse 47; Resp 19; Pulse Ox 99% on R/A; aj 12:19 BP 99 / 71; Pulse 57; Resp 19; Pulse Ox 100% on R/A; aj 13:30 BP 101 / 62; Pulse 63; Resp 20; Pulse Ox 99% on R/A; aj 09:29 Body Mass Index 17.85 (51.71 kg, 170.18 cm) iw 11:50 Patient appears drowsy in room but is easily aroused by voice. Provider notified of aj patient vital signs. NS bolus ordered. IV site inspected, appears to have a small puncture in center of site. Provider notified. UDS ordered. Urine obtained. ED Course: 09:16 Patient arrived in ED. rg4 09:19 Wilfredo Patel PA is PHCP. cp 09:19 Wilfredo Viramontes MD is Attending Physician. cp 09:28 Triage completed. iw 09:29 Arm band placed on. iw 09:38 Frandy Self, RN is Primary Nurse. hj 09:38 Patient has correct armband on for positive identification. Bed in low position. Call hj light in reach. Side rails up X 1. 10:32 US Extremity Venous W Compression Paola In Process Unspecified. EDMS 10:47 EKG done, by certified endoscopy technician. reviewed by Wilfredo BAZZI. at1 11:22 X-ray completed. Portable x-ray completed in exam room. Patient tolerated procedure la2 well. 11:25 XRAY Hip LEFT 2 view In Process Unspecified. EDMS 11:25 XRAY Chest (1 view) In Process Unspecified. EDMS 13:45 No provider procedures requiring assistance completed. IV discontinued, intact, aj bleeding controlled, No redness/swelling at site. Pressure dressing applied. Administered Medications: 10:45 Drug: TORadol 30 mg Route: IVP; Site: right antecubital; iw 11:05 Follow up: Response: No adverse reaction hj 11:53 Drug: NS 0.9% 1000 ml Route: IV; Rate: 1 bolus; Site: right antecubital; aj 13:46 Follow up: Response: No adverse reaction; IV Status: Completed infusion; IV Intake: aj 1000ml Intake: 13:46 IV: 1000ml; Total: 1000ml. aj Outcome: 13:30 Discharge ordered by MD. cp 13:45 Discharged to home ambulatory. aj 13:45 Condition: good 13:45 Discharge instructions given to patient, Instructed on discharge instructions, follow up and referral plans. medication usage, Demonstrated understanding of instructions, follow-up care, medications, Prescriptions given X 1. 13:47 Patient left the ED. aj Signatures: Dispatcher [employer] EDMS Gifty Nascimento RN RN aj Williams, Irene, RN RN iw gonzales, Amanda, health type technician EKG Tat1 Frandy Self, Wilfredo Sloan RN, PA PA cp Garcia, Rubi rg4 Suri Youngblood la2 Corrections: (The following items were deleted from the chart) 12:20 12:00 BP 84 / 58; Pulse 47bpm; Resp 19bpm; Pulse Ox 99% RA; Patient appears drowsy in aj room but is easily aroused by voice. Provider notified of patient vital signs. NS bolus ordered. IV site inspected, appears to have a small puncture in center of site. Provider notified. UDS ordered. Urine obtained.; aj
[2017-11-11 13:58] VITALS: TEMP 98.2
--- NOTE | 2017-11-11 14:01 | EKG ---
Test Date: 2017-11-11 Test Time: 10:34:43 Dietetic Tech: HERMAN MEASUREMENT RESULTS: Intervals: Rate: 57 NV: 152 QRSD: 94 QT: 446 QTc: 434 [place]: P: 48 NV: 152 QRS: 55 T: 64 INTERPRETIVE STATEMENTS: Sinus bradycardia with sinus arrhythmia Otherwise normal ECG Compared to ECG 01/18/2017 15:00:33 Sinus tachycardia no longer present Atrial abnormality no longer present Electronically Signed On 11-11-17 14:00:26 CDT by Jay Jay Mcdonough
[2017-11-11 14:03] VITALS: BP 101/62; O2SAT 99
== END 2017-11-11 13:47 | disposition home or self-care (01) ==
LOC: ER 09:14
DX: R07.89 Other chest pain (principal); M79.604 Pain in right leg; T43.625A Adverse effect of amphetamines, initial encounter; Z88.5 Allergy status to narcotic agent; Z88.8 Allergy status to other drugs, medicaments and biological substances; Z91.013 Allergy to seafood; Z91.048 Other nonmedicinal substance allergy status
CPT/HCPCS: 36415; 71045; 80048; 80076; 80307; 81003; 81025; 82550; 82553; 83735; 84484; 85025; 85610; 85730; 93005; 93970; 96361; 96374; 99284; J7030

== ENCOUNTER 2018-01-13 21:15 | Emergency (ER) | payer SELFPAY ==
[2018-01-13] MEDS ORDERED: MEPERIDINE HCL 50 MG/ML AMP ONE (21:44)
[2018-01-13] MEDS ORDERED: ONDANSETRON 4 MG/2 ML VIAL ONE (21:44)
[2018-01-13 22:27] LABS: Absolute Lymphocytes (CBC) 1.9 K/uL (0.7-4.9); Absolute Monocytes 0.8 K/uL (0.1-1.3); Absolute Neutrophil 4.7 K/uL (1.8-8.0); Basophils % 0.5 % (0-1.3); Eosinophils % 1.8 % (0-4.4); Hematocrit 34.3 % (36.0-45.0); Lymphocytes % 25.3 % (15.3-44.8); MCH 29.3 pg (27.0-35.0); MCV 85.3 fL (80-100); MPV 10.1 fL (7.6-11.3); Monocytes % 10.9 % (3.3-12.3); RBC Red Blood Cell Count 4.02 M/uL (3.86-4.86)
[2018-01-13 22:41] LABS: ALT/SGPT 31 U/L (12-78); AST/SGOT 32 U/L (15-37); Albumin 3.8 g/dL (3.4-5.0); Alkaline Phosphatase 70 U/L (45-117); BUN Blood Urea Nitrogen 17 mg/dL (7-18); Bicarbonate 25 mmol/L (21-32); Bilirubin Direct < 0.1 mg/dL (0-0.2); Bilirubin Total 0.2 mg/dL (0.2-1.0); Glucose Level 98 mg/dL (74-106); Lipase 153 U/L (73-393); Protein, Total 7.1 g/dL (6.4-8.2); Sodium Level 142 mmol/L (136-145)
[2018-01-13] MEDS ORDERED: NA CHLORIDE 0.9% 1,000 ML ONE (23:01)
--- NOTE | 2018-01-14 01:41 | EDPHYS ---
Physician Documentation [facility] Name: Veronica Valentin Age: 32 yrs Sex: Female : 1985 Arrival Date: 01/13/2018 Time: 21:15 Bed 18 Private MD: ED Physician Reggie Baez HPI: 01/13 21:40 This 32 yrs old Female presents to ER via EMS with complaints of Abdominal pkl Pain. 21:40 The patient presents with abdominal pain in the upper abdomen. Onset: The pkl symptoms/episode began/occurred just prior to arrival, 1 hour(s) ago. The symptoms do not radiate. Associated signs and symptoms: Pertinent positives: nausea and vomiting. 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 - Social history:: Smoking status: Patient/guardian denies using tobacco, Patient uses street drugs, Methamphetamine (Meth) States she has been clean for 58 days. - Ebola Screening: : No symptoms or risks identified at this time. ROS: 21:40 Eyes: Negative for injury, pain, redness, and discharge, ENT: Negative for injury, pkl pain, and discharge, Neck: Negative for injury, pain, and swelling, Cardiovascular: Negative for chest pain, palpitations, and edema, Respiratory: Negative for shortness of breath, cough, wheezing, and pleuritic chest pain. 21:40 Abdomen/GI: Positive for abdominal pain, nausea and vomiting, of the right upper quadrant and left upper quadrant. 21:40 Back: Negative for acute changes. 21:40 : Negative for urinary symptoms. 21:40 MS/extremity: Negative for acute changes. 21:40 Skin: Negative for rash. 21:40 Neuro: Negative for altered mental status. Exam: 21:40 Head/Face: Normocephalic, atraumatic. Eyes: Pupils equal round and reactive to light, pkl extra-ocular motions intact. Lids and lashes normal. Conjunctiva and sclera are non-icteric and not injected. Cornea within normal limits. Periorbital areas with no swelling, redness, or edema. ENT: Nares patent. No nasal discharge, no septal abnormalities noted. Tympanic membranes are normal and external auditory canals are clear. Oropharynx with no redness, swelling, or masses, exudates, or evidence of obstruction, uvula midline. Mucous membranes moist. Neck: Trachea midline, no thyromegaly or masses palpated, and no cervical lymphadenopathy. Supple, full range of motion without nuchal rigidity, or vertebral point tenderness. No Meningismus. Chest/axilla: Normal chest wall appearance and motion. Nontender with no deformity. No lesions are appreciated. Cardiovascular: Regular rate and rhythm with a normal S1 and S2. No gallops, murmurs, or rubs. Normal PMI, no JVD. No pulse deficits. Respiratory: Lungs have equal breath sounds bilaterally, clear to auscultation and percussion. No rales, rhonchi or wheezes noted. No increased work of breathing, no retractions or nasal flaring. 21:40 Abdomen/GI: Bowel sounds: normal, Palpation: moderate abdominal tenderness, in the right upper quadrant and left upper quadrant. 21:40 Back: Exam negative for acute changes. 21:40 : Exam negative for acute changes. 21:40 Musculoskeletal/extremity: Exam is negative for acute changes. 21:40 Skin: Exam negative for rash. 21:40 Neuro: Orientation: is normal, Mentation: is normal, Cranial nerves: grossly normal, Motor: is normal. Vital Signs: 21:26 BP 131 / 88; Pulse 105; Resp 20; Temp 98.4(TE); Pulse Ox 97% on R/A; Weight 56.7 kg; kr2 Height 5 ft. 7 in. (170.18 cm); Pain 10/10; 22:51 BP 121 / 93; Pulse 75; Resp 17; Pulse Ox 97% on R/A; kr2 01/14 00:58 BP 122 / 90; Pulse 60; Resp 14; Pulse Ox 97% ; Pain 8/10; jl3 01/13 21:26 Body Mass Index 19.58 (56.70 kg, 170.18 cm) kr2 MDM: 01/13 21:31 Patient medically screened. pkl 01/14 01:39 Data reviewed: vital signs, nurses notes, lab test result(s), radiologic studies, CT pkl scan. 01/13 21:37 Order name: Basic Metabolic Panel; Complete Time: 23:10 pkl 01/13 21:37 Order name: CBC with Diff; Complete Time: 23:11 pkl 01/13 21:37 Order name: Creatinine for Radiology; Complete Time: 23:11 pkl 01/13 21:37 Order name: Hepatic Function; Complete Time: 23:11 pkl 01/13 21:37 Order name: Lipase; Complete Time: 23:11 pkl 01/13 21:37 Order name: IV Saline Lock; Complete Time: 21:43 pkl 01/13 23:51 Order name: Abdomen EDMS 01/13 21:37 Order name: Labs collected and sent; Complete Time: 21:43 pkl Administered Medications: 01/13 21:41 Drug: Demerol 50 mg Route: IVP; Site: left hand; kr2 22:00 Follow up: Response: No adverse reaction; Pain is decreased kr2 01/14 00:39 Follow up: Response: No adverse reaction jl3 01/13 21:41 Drug: Zofran 4 mg Route: IVP; Site: left hand; kr2 22:00 Follow up: Response: No adverse reaction; Pain is decreased kr2 21:42 Drug: NS 0.9% 1000 ml Route: IV; Rate: 1000 ml; Site: left hand; kr2 23:06 Follow up: Response: No adverse reaction; IV Status: Completed infusion kr2 01/14 02:15 Not Given (Patient Refused): Magnesium Citrate Liquid 300 ml PO once jl3 02:15 Drug: Dulcolax Suppository 10 mg Route: IN; jl3 02:33 Follow up: Response: No adverse reaction jl3 02:33 Not Given (Duplicate Order): NS 0.9% 1000 ml IV at 125 ml/hr continuous jl3 Disposition: 01/14/18 01:40 Discharged to Home. Impression: Abdominal pain. - Condition is Stable. - Medication Reconciliation Form, Thank You Letter, Antibiotic Education, Prescription Opioid Use form. - Follow up: Private Physician; When: 2 - 3 days; Reason: Re-evaluation by your physician. - Problem is new. - Symptoms have improved. Signatures: Dispatcher [employer] [facility] Taylor Cruz, RN RN aa1 Reggie Baez MD MD pkl Gene Medeiros RN RN jl3 Courtney Pereira RN RN kr2 Corrections: (The following items were deleted from the chart) 01/13 23:51 21:39 Abdomen Pelvis W Con+CT.RAD.BRZ ordered. [facility] 01/14 03:10 01:40 01/14/2018 01:40 Discharged to Home. Impression: Abdominal pain. Condition is aa1 Stable. Forms are Medication Reconciliation Form, Thank You Letter, Antibiotic Education, Prescription Opioid Use. Follow up: Private Physician; When: 2 - 3 days; Reason: Re-evaluation by your physician. Problem is new. Symptoms have improved. pkl
--- NOTE | 2018-01-14 01:41 | ER ---
Nurse's Notes [facility] Name: Veronica Valentin Age: 32 yrs Sex: Female : 1985 Arrival Date: 01/13/2018 Time: 21:15 Bed 18 Private MD: Diagnosis: Abdominal pain Presentation: 01/13 21:16 Presenting complaint: EMS states: Patient complains of severe abdominal pain. She had a kr2 5 years ago that had complications requiring insertion of mesh. Every 6 months-1 year she has severe abdominal pain. She received Fentanyl 200 mcg, and Zofran 4mg by EMS. She resides at [facility] for drug rehab, history of Meth use. Reports being clean for 58 days. Transition of care: [facility]. Onset of symptoms was January 13, 2018. Risk Assessment: Do you want to hurt yourself or someone else? Patient reports no desire to harm self or others. Initial Sepsis Screen: Does the patient meet any 2 criteria? No. Patient's initial sepsis screen is negative. Does the patient have a suspected source of infection? No. Patient's initial sepsis screen is negative. Care prior to arrival: Medication(s) given: Fentanyl 200 mcg, Zofran 4mg IV initiated. 20 GA, in the left hand. 21:16 Method Of Arrival: EMS: [facility] kr2 21:16 Acuity: BREANNA 3 kr2 Triage Assessment: 21:25 General: Appears uncomfortable, slender, Behavior is cooperative, anxious, crying, kr2 restless. Pain: Complains of pain in abdomen Pain does not radiate. Pain currently is 10 out of 10 on a pain scale. Quality of pain is described as sharp, shooting, Is continuous, Alleviated by nothing. Aggravated by increased activity, repositioning. GI: Abdomen is flat, non-distended, Reports lower abdominal pain, upper abdominal pain. 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 - Social history:: Smoking status: Patient/guardian denies using tobacco, Patient uses street drugs, Methamphetamine (Meth) States she has been clean for 58 days. - Ebola Screening: : No symptoms or risks identified at this time. Screenin:28 Abuse screen: Denies threats or abuse. Denies injuries from another. Nutritional kr2 screening: No deficits noted. Tuberculosis screening: No symptoms or risk factors identified. Fall Risk IV access (20 points). Assessment: 21:27 GI: Bowel sounds present X 4 quads. Abd is soft X 4 quads Abdomen is tender to kr2 palpation X 4 quads. 21:29 General: Appears uncomfortable, slender, Behavior is cooperative, anxious, crying, kr2 restless. Pain: Complains of pain in see triage assessment. Neuro: Level of Consciousness is awake, alert, obeys commands, Oriented to person, place, time, situation. Cardiovascular: Capillary refill < 3 seconds in bilateral fingers Patient's skin is warm and dry. Respiratory: Airway is patent Respiratory effort is even, unlabored, Respiratory pattern is regular, symmetrical. EENT: Oral mucosa is moist. Derm: Skin is intact, is healthy with good turgor, Skin is pink, warm \T\ dry. Musculoskeletal: Circulation, motion, and sensation intact. 22:50 Reassessment: Patient appears in no apparent distress at this time. Patient and/or kr2 family updated on plan of care and expected duration. Pain level reassessed. Patient is alert, oriented x 3, equal unlabored respirations, skin warm/dry/pink. States pain is decreased, no crying at this time. 01/14 03:08 Reassessment: Patient appears in no apparent distress at this time. Patient is alert, aa1 oriented x 3, equal unlabored respirations, skin warm/dry/pink. Discussed d/c \T\ f/u instructions with pt; denies questions or concerns at this time. Vital Signs: 01/13 21:26 BP 131 / 88; Pulse 105; Resp 20; Temp 98.4(TE); Pulse Ox 97% on R/A; Weight 56.7 kg; kr2 Height 5 ft. 7 in. (170.18 cm); Pain 10/10; 22:51 BP 121 / 93; Pulse 75; Resp 17; Pulse Ox 97% on R/A; kr2 01/14 00:58 BP 122 / 90; Pulse 60; Resp 14; Pulse Ox 97% ; Pain 8/10; jl3 01/13 21:26 Body Mass Index 19.58 (56.70 kg, 170.18 cm) kr2 ED Course: 01/13 21:15 Patient arrived in ED. kr2 21:20 Triage completed. kr2 21:27 Arm band placed on. kr2 21:28 Patient has correct armband on for positive identification. Bed in low position. Call kr2 light in reach. Side rails up X2. Pulse ox on. NIBP on. Door closed. Warm blanket given. Head of bed elevated. 21:31 Reggie Baez MD is Attending Physician. pkl 21:35 Maintain EMS IV. Dressing intact. Site clean \T\ dry. Gauge \T\ site: 20g left hand. geraldine 3 21:40 Courtney Pereira, CONNIE is Primary Nurse. kr2 22:02 Initial lab(s) drawn, by me, sent to lab. via 22-gauge needle and syringe from Right jp3 A/C. 22:03 Basic Metabolic Panel Sent. jp3 22:03 CBC with Diff Sent. jp3 22:03 Creatinine for Radiology Sent. jp3 22:03 Hepatic Function Sent. jp3 22:03 Lipase Sent. jp3 23:[address] via wheelchair. kw1 23:51 Note: Patient allergic to iodine. Will do exam with oral contrast only. Advised Dr. Baez.kw1 01/14 00:03 Abdomen In Process Unspecified. EDMS 00:03 CT completed. Patient tolerated procedure well. Patient moved back from CT. kw1 03:08 No provider procedures requiring assistance completed. IV discontinued, intact, aa1 bleeding controlled, No redness/swelling at site. Pressure dressing applied. Administered Medications: 01/13 21:41 Drug: Demerol 50 mg Route: IVP; Site: left hand; kr2 22:00 Follow up: Response: No adverse reaction; Pain is decreased kr2 01/14 00:39 Follow up: Response: No adverse reaction jl3 01/13 21:41 Drug: Zofran 4 mg Route: IVP; Site: left hand; kr2 22:00 Follow up: Response: No adverse reaction; Pain is decreased kr2 21:42 Drug: NS 0.9% 1000 ml Route: IV; Rate: 1000 ml; Site: left hand; kr2 23:06 Follow up: Response: No adverse reaction; IV Status: Completed infusion kr2 01/14 02:15 Not Given (Patient Refused): Magnesium Citrate Liquid 300 ml PO once jl3 02:15 Drug: Dulcolax Suppository 10 mg Route: AL; jl3 02:33 Follow up: Response: No adverse reaction jl3 02:33 Not Given (Duplicate Order): NS 0.9% 1000 ml IV at 125 ml/hr continuous jl3 Outcome: 01:40 Discharge ordered by . michelle 03:08 Discharged to Rehab Facility aa1 03:08 Condition: good 03:08 Discharge instructions given to patient, Instructed on discharge instructions, follow up and referral plans. medication usage, Demonstrated understanding of instructions, follow-up care, medications. 03:10 Patient left the ED. aa1 Signatures: Dispatcher [employer] EDMS Taylor Cruz RN RN aa1 Reggie Baez MD MD pkl Lowman, John RN RN jl3 Courtney Pereira RN RN kr2 Cassi Menendez kw1 Micha Will jp3 Corrections: (The following items were deleted from the chart) 01/13 21:43 21:41 Demerol 50 mg IVP in left antecubital kr2 kr2 22:02 21:35 Maintain EMS IV. Dressing intact. Good blood return noted. Site clean \T\ dry. jp3 Gauge \T\ site: 20g left hand. kr2 22:51 21:29 Pain: Complains of pain in see triage assessment kr2 kr2
[2018-01-14] MEDS ORDERED: BISACODYL 10 MG RECTAL SUPP ONE (02:01)
[2018-01-14] MEDS ORDERED: MAGNESIUM CITRATE 300 ML BOT ONE (02:02)
[2018-01-14 03:24] VITALS: TEMP 98.4; O2SAT 97
[2018-01-14 03:27] VITALS: BP 122/90
--- NOTE | 2018-01-14 08:03 | RAD REPORT ---
EXAM DESCRIPTION: CT - Abdomen Pelvis Wo Contrast - 01/14/2018 3:13 am CLINICAL HISTORY: Abdominal pain /severe abdominal pain. Surgery 6+ months COMPARISON: June 2017 TECHNIQUE: Computed axial tomography of the abdomen and pelvis was obtained. IV was not requested. O ral contrast was given. Coronal reconstructions performed.A preliminary report was generated by sherron menendez and reviewed prior to dictation All CT scans are performed using dose optimization technique as appropriate and may include automated exposure control or mA/KV adjustment according to patient size. FINDINGS: The evaluation of solid organs and vessels is limited secondary to the lack of contrast a dministration. The liver, spleen, pancreas, and adrenals appear grossly normal. The gallbladder has been removed. Punctate bilateral renal calculi are seen. Mild bilateral hydronephrosis is present. A ureteral calcu unique is not seen. Mild bladder distention is noted. The appendix is normal. There is no evidence of diverticulitis. A hysterectomy has been performed. Moderate amount stool is present throughout the colon Postsurgical changes a ventral hernia repair are noted. IMPRESSION: Tiny nonobstructing renal calculi Mild bilateral hydronephrosis may be secondary to the bladder distention or vesicoureteral reflux. Moderate amount stool within the colon
== END 2018-01-14 03:10 | disposition home or self-care (01) ==
LOC: ER 21:15
DX: R10.10 Upper abdominal pain, unspecified (principal); R11.2 Nausea with vomiting, unspecified; Z88.5 Allergy status to narcotic agent; Z88.8 Allergy status to other drugs, medicaments and biological substances; Z91.013 Allergy to seafood
CPT/HCPCS: 36415; 74176; 80048; 80076; 83690; 85025; 96361; 96374; 96375; 99284; J2175; J2405; J7030

== ENCOUNTER 2018-02-03 14:00 | Emergency (ER) | payer SELFPAY ==
--- NOTE | 2018-02-03 15:12 | ER ---
Nurse's Notes [facility] Name: Veronica Valentin Age: 32 yrs Sex: Female : 1985 Arrival Date: 02/03/2018 Time: 14:03 Bed 30 Private MD: None, None Diagnosis: Generalized abdominal pain-chronic;Constipation Presentation: 02/03 14:18 Presenting complaint: Patient states: upper abd pain. Pt also reports nausea and aa5 vomiting. Pt reports being seen at [facility] and diagnosed with UTI and completed Macrobid Rx. Transition of care: patient was not received from another setting of care. Onset of symptoms was January 2018. Risk Assessment: Do you want to hurt yourself or someone else? Patient reports no desire to harm self or others. Initial Sepsis Screen: Does the patient meet any 2 criteria? No. Patient's initial sepsis screen is negative. Does the patient have a suspected source of infection? No. Patient's initial sepsis screen is negative. Care prior to arrival: None. 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 - Social history:: Smoking status: Patient/guardian denies using tobacco. - Ebola Screening: : No symptoms or risks identified at this time. Screenin:50 Abuse screen: Denies threats or abuse. Denies injuries from another. Nutritional sg screening: No deficits noted. Tuberculosis screening: No symptoms or risk factors identified. Never had TB. Fall Risk None identified. Assessment: 14:50 General: Appears. General: Appears in no apparent distress. uncomfortable, slender, sg unkempt, well developed, well nourished, Behavior is cooperative, anxious, crying. Pain: Complains of pain in right lower quadrant and left upper quadrant Quality of pain is described as aching, crampy, sharp, stabbing. Neuro: No deficits noted. Cardiovascular: Capillary refill is brisk in bilateral fingers Patient's skin is warm and dry. Respiratory: Airway is patent Respiratory effort is even, unlabored, Respiratory pattern is regular, symmetrical, Breath sounds are clear. GI: Reports lower abdominal pain, upper abdominal pain, nausea. GI: : No signs and/or symptoms were reported regarding the genitourinary system. EENT: No signs and/or symptoms were reported regarding the EENT system. Derm: Skin is pink, warm \T\ dry. Musculoskeletal: No signs and/or symptoms reported regarding the musculoskeletal system. 15:12 Reassessment: pt counseled by [facility] MEDNOZA for importance of having PCP for sg continuance of care and managing chronic conditions, dangers of visits at different emergency rooms, educated on constipation prevention and management for at home, abx education provided, UTI prevention education, pt family member verbalized understanding, pt verbalized understanding, pt to be discharged to home. 15:39 Reassessment: patient for discharge after the xray. mg2 16:29 GI: Bowel sounds present X 4 quads. Abd is soft and non tender. mg2 Vital Signs: 14:20 BP 134 / 93; Pulse 113; Resp 18 S; Temp 98.7(TE); Pulse Ox 100% on R/A; Weight 56.7 kg aa5 (R); Height 5 ft. 7 in. (170.18 cm) (R); Pain 9/10; 15:42 BP 116 / 86; Pulse 94; Resp 18; Pulse Ox 100% on R/A; mg2 14:20 Body Mass Index 19.58 (56.70 kg, 170.18 cm) aa5 ED Course: 14:03 Patient arrived in ED. mr 14:03 None, None is Private Physician. mr 14:20 Triage completed. aa5 14:20 Arm band placed on. aa5 14:30 Farrah Andrade FNP-C is PHCP. snw 14:30 Wilfredo Viramontes MD is Attending Physician. snw 14:50 No provider procedures requiring assistance completed. Patient did not have IV access sg during this emergency room visit. 14:59 Lam Gupta, CONNIE is Primary Nurse. mg2 15:59 X-ray completed. Portable x-ray completed in exam room. Patient tolerated procedure ml well. 16:00 Pelvis XRAY In Process Unspecified. EDMS 16:11 Patient has correct armband on for positive identification. Pulse ox on. NIBP on. mg2 Administered Medications: 15:15 Drug: TORadol 60 mg Route: IM; Site: left gluteus; mg2 15:59 Follow up: Response: No adverse reaction; Marked relief of symptoms mg2 15:15 Drug: Magnesium Citrate Liquid 300 ml Route: PO; mg2 15:59 Follow up: Response: No adverse reaction; Marked relief of symptoms mg2 15:15 Drug: Dulcolax Suppository 10 mg Route: UT; mg2 15:59 Follow up: Response: No adverse reaction; Marked relief of symptoms mg2 Outcome: 14:52 Discharge ordered by MD. snw 16:28 Discharged to home via wheelchair, with family. mg2 16:28 Condition: stable 16:28 Discharge instructions given to patient, family, Instructed on discharge instructions, follow up and referral plans. medication usage, Demonstrated understanding of instructions, follow-up care, medications, Prescriptions given X 2, Following a medical screening exam, the patient was provided information regarding alternative care sites and resources available per registration personnel. 16:29 Patient left the ED. mg2 Signatures: Dispatcher [employer] EDMS Angel Kent RN RN sg Farrah Andrade, MARINE PIPEFITTER-C MARINE PIPEFITTER-Csnw Josee Mustafa, Bri Marii Hoang RN RN aa5 Lam Gupta RN RN mg2 Corrections: (The following items were deleted from the chart) 15:21 14:50 General: Appears in no apparent distress. uncomfortable, slender, unkempt, well sg developed, well nourished, Behavior is calm, cooperative, appropriate for age, sg
--- NOTE | 2018-02-03 15:13 | EDPHYS ---
Physician Documentation [facility] Name: Veronica Valentin Age: 32 yrs Sex: Female : 1985 Arrival Date: 02/03/2018 Time: 14:03 Bed 30 Private MD: None, None ED Physician Wilfredo Viramontes HPI: 02/03 14:56 This 32 yrs old Female presents to ER via Wheelchair with complaints of snw Abdominal Pain. 14:56 The patient presents with abdominal pain that is diffuse, abdominal distention. Onset: snw The symptoms/episode began/occurred gradually, and became persistent. The symptoms do not radiate. Associated signs and symptoms: Pertinent positives: nausea and vomiting. The symptoms are described as stabbing, steady. Severity of pain: At its worst the pain was severe. The patient has experienced similar episodes in the past, chronically. The patient has been recently seen by a physician: other ED, labs normal, urine with moderate bacteria, CT with constipation and no other emergent findings. 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 - Social history:: Smoking status: Patient/guardian denies using tobacco. - Ebola Screening: : No symptoms or risks identified at this time. ROS: 15:00 Constitutional: Negative for fever, chills, and weight loss, Eyes: Negative for injury, snw pain, redness, and discharge, ENT: Negative for injury, pain, and discharge, Neck: Negative for injury, pain, and swelling, Cardiovascular: Negative for chest pain, palpitations, and edema, Respiratory: Negative for shortness of breath, cough, wheezing, and pleuritic chest pain, Back: Negative for injury and pain, : Negative for injury, bleeding, discharge, and swelling, MS/Extremity: Negative for injury and deformity, Skin: Negative for injury, rash, and discoloration, Neuro: Negative for headache, weakness, numbness, tingling, and seizure, Psych: Negative for depression, anxiety, suicide ideation, homicidal ideation, and hallucinations. 15:00 Abdomen/GI: Positive for abdominal pain, nausea and vomiting. Exam: 14:58 Constitutional: This is a well developed, well nourished patient who is awake, alert, snw and in no acute distress. Head/Face: Normocephalic, atraumatic. Eyes: Pupils equal round and reactive to light, extra-ocular motions intact. Lids and lashes normal. Conjunctiva and sclera are non-icteric and not injected. Cornea within normal limits. Periorbital areas with no swelling, redness, or edema. ENT: Nares patent. No nasal discharge, no septal abnormalities noted. Tympanic membranes are normal and external auditory canals are clear. Oropharynx with no redness, swelling, or masses, exudates, or evidence of obstruction, uvula midline. Mucous membranes moist. Neck: Trachea midline, no thyromegaly or masses palpated, and no cervical lymphadenopathy. Supple, full range of motion without nuchal rigidity, or vertebral point tenderness. No Meningismus. Chest/axilla: Normal chest wall appearance and motion. Nontender with no deformity. No lesions are appreciated. 14:58 Respiratory: Lungs have equal breath sounds bilaterally, clear to auscultation and percussion. No rales, rhonchi or wheezes noted. No increased work of breathing, no retractions or nasal flaring. Back: No spinal tenderness. No costovertebral tenderness. Full range of motion. Skin: Warm, dry with normal turgor. Normal color with no rashes, no lesions, and no evidence of cellulitis. MS/ Extremity: Pulses equal, no cyanosis. Neurovascular intact. Full, normal range of motion. Neuro: Awake and alert, GCS 15, oriented to person, place, time, and situation. Cranial nerves II-XII grossly intact. Motor strength 5/5 in all extremities. Sensory grossly intact. Cerebellar exam normal. Normal gait. Psych: Awake, alert, with orientation to person, place and time. Behavior, mood, and affect are within normal limits. 14:58 Cardiovascular: Rate: tachycardic, Heart sounds: normal. 14:58 Abdomen/GI: Inspection: distension, scar(s), are noted in the umbilical area, left upper quadrant and right lower quadrant, Bowel sounds: normal, in all quadrants, Palpation: soft, moderate abdominal tenderness, in all quadrants. Vital Signs: 14:20 BP 134 / 93; Pulse 113; Resp 18 S; Temp 98.7(TE); Pulse Ox 100% on R/A; Weight 56.7 kg aa5 (R); Height 5 ft. 7 in. (170.18 cm) (R); Pain 9/10; 15:42 BP 116 / 86; Pulse 94; Resp 18; Pulse Ox 100% on R/A; mg2 14:20 Body Mass Index 19.58 (56.70 kg, 170.18 cm) aa5 MDM: 14:30 Patient medically screened. natasha 14:54 Data reviewed: vital signs, nurses notes. Data interpreted: Pulse oximetry: on room air snw is 100 %. Interpretation: normal. Counseling: I had a detailed discussion with the patient and/or guardian regarding: the historical points, exam findings, and any diagnostic results supporting the discharge/admit diagnosis, the presence of at least one elevated blood pressure reading (>120/80) during this emergency department visit, the need for outpatient follow up, to return to the emergency department if symptoms worsen or persist or if there are any questions or concerns that arise at home. Special discussion: Based on the patient's Hx, exam, and Dx evaluation, there is no indication for emergent surgery or inpatient Tx. It is understood by the patient/guardian that if the Sx's persist or worsen they need to return immediately for re-evaluation. Based on the history and exam findings, there is no indication for further emergent testing or inpatient evaluation. I discussed with the patient/guardian the need to see the zoogler for further evaluation of the symptoms. I discussed with the patient/guardian the need to see the primary care provider for further evaluation of the symptoms. 02/03 15:22 Order name: Pelvis XRAY snw Administered Medications: 15:15 Drug: TORadol 60 mg Route: IM; Site: left gluteus; mg2 15:59 Follow up: Response: No adverse reaction; Marked relief of symptoms mg2 15:15 Drug: Magnesium Citrate Liquid 300 ml Route: PO; mg2 15:59 Follow up: Response: No adverse reaction; Marked relief of symptoms mg2 15:15 Drug: Dulcolax Suppository 10 mg Route: OR; mg2 15:59 Follow up: Response: No adverse reaction; Marked relief of symptoms mg2 Disposition: 17:58 Co-signature as Attending Physician, Wilfredo Viramontes MD I agree with the assessment and [facility] plan of care. Disposition: 02/03/18 14:52 Discharged to Home. Impression: Generalized abdominal pain - chronic, Constipation. - Condition is Stable. - Discharge Instructions: Abdominal Pain, Adult, Constipation, Adult, Rehydration, Adult. - Prescriptions for Clindamycin HCl 150 mg Oral Capsule - take 1 capsule by ORAL route every 6 hours for 10 days; 40 capsule. Miralax 17 gram/dose Oral - take 1 packet by ORAL route once daily dilute powder in 8 ounces of water or juice; 1 box. - Medication Reconciliation Form, Thank You Letter, Antibiotic Education, Prescription Opioid Use, Work release form form. - Follow up: Private Physician; When: 2 - 3 days; Reason: Recheck today's complaints, Continuance of care, Re-evaluation by your physician. Signatures: Dispatcher [employer] [facility] Wilfredo Viramontes MD MD cha Therrien, Shelly, AUDIO VISUAL DIRECTOR-C AUDIO VISUAL DIRECTOR-Csnw Marii Bartholomew, RN RN aa5 Lam Gupta RN RN mg2 Corrections: (The following items were deleted from the chart) 15:15 15:11 Stone Protocol+CT.RAD.BRZ ordered. [facility] 16:29 14:52 02/03/2018 14:52 Discharged to Home. Impression: Generalized abdominal pain - mg2 chronic; Constipation. Condition is Stable. Forms are Medication Reconciliation Form, Thank You Letter, Antibiotic Education, Prescription Opioid Use. Follow up: Private Physician; When: 2 - 3 days; Reason: Recheck today's complaints, Continuance of care, Re-evaluation by your physician. snw
--- NOTE | 2018-02-03 17:02 | RAD REPORT ---
EXAM DESCRIPTION: RAD - Pelvis - 02/03/2018 3:59 pm CLINICAL HISTORY: Hip pain, abdominal pain, constipation COMPARISON: None. TECHNIQUE: AP imaging of the pelvis was obtained. FINDINGS: No fracture of the bony pelvis. No fracture, dislocation or other acute hip joint finding. No significant SI joint findings. Left femoral head maintains smooth rounded contour. No joint effusion or periarticular abnormality. N o significant bowel activity seen in the pelvis and lower abdomen. No soft tissue abnormality. IMPRESSION: Negative pelvis for acute or significant findings.
[2018-02-03 17:58] VITALS: TEMP 98.7; O2SAT 100
[2018-02-03 18:00] VITALS: BP 116/86
== END 2018-02-03 16:29 | disposition home or self-care (01) ==
LOC: ER 14:00
DX: R10.84 Generalized abdominal pain (principal); Z88.5 Allergy status to narcotic agent; Z88.8 Allergy status to other drugs, medicaments and biological substances; Z91.013 Allergy to seafood; Z91.048 Other nonmedicinal substance allergy status
CPT/HCPCS: 72170; 96372; 99284

== ENCOUNTER 2019-02-10 12:00 | Emergency (ER) | payer SELFPAY ==
[2019-02-10] MEDS ORDERED: ONDANSETRON 4 MG/2 ML VIAL ONE ×2 (12:47→14:10)
[2019-02-10] MEDS ORDERED: NA CHLORIDE 0.9% 1,000 ML ONE ×3 (12:47→16:59)
[2019-02-10 12:52] LABS: Absolute Lymphocytes (CBC) 1.4 K/uL (0.7-4.9); Basophils % 0.2 % (0-1.3); Hematocrit 39.6 % (36.0-45.0); Lymphocytes % 25.5 % (15.3-44.8); MPV 10.1 fL (7.6-11.3)
[2019-02-10] MEDS ORDERED: HYDROMORPHONE HCL 1 MG/ML INJ ONE ×3 (12:55→16:59)
[2019-02-10] MEDS ORDERED: FAMOTIDINE 20 MG/2 ML VIAL IV ONE (12:56)
[2019-02-10 13:02] LABS: Urine Blood TRACE (NEG); Urine Glucose NEGATIVE (NEG); Urine Protein NEGATIVE (NEG); Urine Specific Gravity 1.015 (1.005-1.030)
[2019-02-10 13:14] LABS: Albumin 4.5 g/dL (3.4-5.0); Bilirubin Direct 0.1 mg/dL (0-0.2); Bilirubin Total 0.4 mg/dL (0.2-1.0); Potassium 3.2 mmol/L (3.5-5.1)
--- NOTE | 2019-02-10 14:01 | RAD REPORT ---
EXAM DESCRIPTION: RAD - Abdomen Acute Series - 02/10/2019 1:46 pm CLINICAL HISTORY: ABD PAIN COMPARISON: Chest Single View dated 11/11/2017; Abdomen Acute Series dated 01/19/2017; CHEST SINGLE EW dated 03/21/2014; CHEST SINGLE VIEW dated 02/14/2014 FINDINGS: Lungs are clear of an acute process. Left hemidiaphragm elevation is again noted. Heart si ze and pulmonary vasculature are normal. No pleural effusion, pneumothorax or other acute cardiopulmo nary process seen. Bowel gas pattern is nonspecific. No bowel obstruction, free air or other acute findings. No suspicio us calcifications. No other suspicious for significant findings. IMPRESSION: Negative acute abdomen series.
[2019-02-10] MEDS ORDERED: NS KCL 20MEQ 1,000 ML IV ONE (14:23)
--- NOTE | 2019-02-10 16:59 | ER ---
Nurse's Notes [facility] Name: Veronica Valentin Age: 33 yrs Sex: Female : 1985 Arrival Date: 02/10/2019 Time: 12:02 Bed 25 Private MD: Diagnosis: Abdominal tenderness;Vomiting;Hypokalemia;Volume depletion Presentation: 02/10 12:02 Presenting complaint: Patient states: diarrhea since Sat, nausea, abd pain, back pain sv started Saturday. Reports losing 15 pounds since Sat. Transition of care: patient was not received from another setting of care. Onset of symptoms was February 04, 2019. Risk Assessment: Do you want to hurt yourself or someone else? Patient reports no desire to harm self or others. Care prior to arrival: None. 12:02 Method Of Arrival: Ambulatory sv 12:02 Acuity: BREANNA 2 sv 12:05 Initial Sepsis Screen: Does the patient meet any 2 criteria? HR > 90 bpm. No. Patient's sv initial sepsis screen is negative. Does the patient have a suspected source of infection? Yes: Acute abdominal pain. 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 - Social history:: Smoking status: Patient/guardian denies using tobacco, Patient/guardian denies using alcohol. - Ebola Screening: : No symptoms or risks identified at this time. - Family history:: not pertinent. Screenin:18 Abuse screen: Denies threats or abuse. Denies injuries from another. Nutritional mg2 screening: No deficits noted. Tuberculosis screening: No symptoms or risk factors identified. Fall Risk IV access (20 points). Assessment: 12:40 General: Appears uncomfortable, Behavior is calm, cooperative. Pain: Complains of pain mg2 in abdomen Pain does not radiate. Pain currently is 8 out of 10 on a pain scale. Quality of pain is described as aching, Pain began gradually, Is intermittent. Neuro: Level of Consciousness is awake, alert, obeys commands, Oriented to person, place, time, situation. Cardiovascular: Capillary refill < 3 seconds Patient's skin is warm and dry. Respiratory: Airway is patent Respiratory effort is even, unlabored, Respiratory pattern is regular, symmetrical. GI: Bowel sounds present X 4 quads. Abd is soft and non tender Reports lower abdominal pain, upper abdominal pain, diarrhea, nausea. : No signs and/or symptoms were reported regarding the genitourinary system. : Urine is see urine dip. EENT: No signs and/or symptoms were reported regarding the EENT system. Derm: Skin is intact, is healthy with good turgor, Skin is pink, warm \T\ dry. normal. Musculoskeletal: Circulation, motion, and sensation intact. Capillary refill < 3 seconds. 16:18 Reassessment: Patient appears in no apparent distress at this time. patient complains mg2 of pain and nausea. provider informed and said he will come and talk to the patient., patient made aware. 18:39 Reassessment: Patient states feeling better. Patient states symptoms have improved. mg2 Vital Signs: 12:04 BP 139 / 89; Pulse 126; Resp 16; Temp 97.9; Pulse Ox 100% ; Weight 54.88 kg; Height 5 sv ft. 7 in. (170.18 cm); Pain 7/10; 14:19 BP 116 / 92; Pulse 71; Resp 18; Pulse Ox 100% on R/A; mg2 15:00 BP 133 / 80; Pulse 88; Resp 18; Pulse Ox 100% on R/A; Pain 8/10; mg2 16:00 BP 129 / 78; Pulse 89; Resp 18; Temp 98; Pulse Ox 100% on R/A; Pain 2/10; mg2 17:00 BP 130 / 78; Pulse 89; Resp 18; Pulse Ox 100% on R/A; mg2 18:15 BP 132 / 78; Pulse 90; Resp 18; Pulse Ox 100% on R/A; mg2 12:04 Body Mass Index 18.95 (54.88 kg, 170.18 cm) sv ED Course: 12:02 Patient arrived in ED. sv 12:03 Wilfredo Viramontes MD is Attending Physician. natasha 12:04 Triage completed. sv 12:18 Gardose, Lam, RN is Primary Nurse. mg2 12:30 Inserted saline lock: 22 gauge in left antecubital area, using aseptic technique. Blood jp3 collected. Patient maintains SpO2 saturation greater than 95% on room air. 12:30 Initial lab(s) drawn, by me, sent to lab. Urine collected: clean catch specimen, clear, jp3 regine colored. 12:38 Bed in low position. Call light in reach. Side rails up X 1. Warm blanket given. Verbal jp3 reassurance given. Pulse ox on. NIBP on. 13:41 Abdomen Acute Series XRAY In Process Unspecified. EDMS 14:19 No provider procedures requiring assistance completed. IV discontinued, intact, mg2 bleeding controlled, No redness/swelling at site. Pressure dressing applied. 14:19 Inserted saline lock: 20 gauge in right antecubital area, using aseptic technique. mg2 14:19 Arm band placed on. mg2 16:00 Inserted saline lock: 22 gauge in right hand, using aseptic technique. mg2 16:20 IV discontinued, intact, bleeding controlled, No redness/swelling at site. Pressure mg2 dressing applied. 16:58 Nathaniel Hernandez MD is Referral Physician. natasha Administered Medications: 13:03 Drug: NS 0.9% 1000 ml Route: IV; Rate: 1 bolus; Site: left antecubital; mg2 18:37 Follow up: Response: No adverse reaction; IV Status: Completed infusion; IV Intake: mg2 1000ml 13:03 Drug: Zofran 4 mg Route: IVP; Site: left antecubital; mg2 18:37 Follow up: Response: No adverse reaction mg2 13:03 Drug: Pepcid 20 mg Route: IVP; Site: left antecubital; mg2 18:36 Follow up: Response: No adverse reaction mg2 13:03 Drug: Dilaudid 1 mg Route: IVP; Site: left antecubital; mg2 18:35 Follow up: Response: No adverse reaction; Marked relief of symptoms mg2 14:16 Drug: Dilaudid 1 mg Route: IVP; Site: right antecubital; mg2 18:35 Follow up: Response: No adverse reaction mg2 14:16 Drug: Zofran 4 mg Route: IVP; Site: right antecubital; mg2 18:35 Follow up: Response: No adverse reaction mg2 14:40 Drug: NS 0.9% with KCl 20 mEq/L 1000 ml Route: IV; Rate: 150 ml/hr; Site: right hand; mg2 18:35 Follow up: Response: No adverse reaction; IV Status: Completed infusion; IV Intake: mg2 1000ml 14:56 Drug: NS 0.9% 1000 ml Route: IV; Rate: 1 bolus; Site: right hand; mg2 18:36 Follow up: Response: No adverse reaction; IV Status: Completed infusion; IV Intake: mg2 1000ml 18:36 Follow up: Response: No adverse reaction; IV Status: Completed infusion; IV Intake: mg2 1000ml 17:05 Drug: NS 0.9% 1000 ml Route: IV; Rate: 1 bolus; Site: right hand; mg2 18:34 Follow up: Response: No adverse reaction; IV Status: Completed infusion; IV Intake: mg2 1000ml 17:05 Drug: Dilaudid 1 mg Route: IVP; Site: right hand; mg2 18:34 Follow up: Response: No adverse reaction; Marked relief of symptoms mg2 Intake: 18:34 IV: 1000ml; Total: 1000ml. mg2 18:35 IV: 1000ml; Total: 2000ml. mg2 18:36 IV: 1000ml; Total: 3000ml. mg2 18:36 IV: 1000ml; Total: 4000ml. mg2 18:37 IV: 1000ml; Total: 5000ml. mg2 Outcome: 16:59 Discharge ordered by . natasha 18:38 Discharged to home ambulatory, with family. mg2 18:38 Condition: stable 18:38 Discharge instructions given to patient, family, Instructed on discharge instructions, follow up and referral plans. medication usage, Demonstrated understanding of instructions, follow-up care, medications, Prescriptions given X 4. 18:39 Patient left the ED. mg2 Signatures: Dispatcher [employer] EDDoris Paredes RN RN sv Anderson, Corey, MD MD cha Gardose, Michele, RN RN mg2 Micha Will jp3 Corrections: (The following items were deleted from the chart) 12:06 12:02 Presenting complaint: Patient states: diarrhea since Sat, nausea, abd pain, back sv pain started Saturday. sv 12:06 12:02 Acuity: BREANNA 3 sv sv 12:06 12:04 Pulse 126bpm; Resp 16bpm; Temp 97.9F; 54.88 kg; Height 5 ft. 7 in.; BMI: 18.9; sv Pain 7/10; sv
--- NOTE | 2019-02-10 17:00 | EDPHYS ---
Physician Documentation [facility] Name: Veronica Valentin Age: 33 yrs Sex: Female : 1985 Arrival Date: 02/10/2019 Time: 12:02 Bed 25 Private MD: ED Physician Wilfredo Viramontes HPI: 02/10 12:48 This 33 yrs old Female presents to ER via Ambulatory with complaints of natasha Abdominal Pain. 12:48 The patient presents with abdominal pain in the upper abdomen, in the lower abdomen. natasha Onset: The symptoms/episode began/occurred 3 day(s) ago. The patient presents to the emergency department with nausea, vomiting, diarrhea, that is continuous. Onset: The symptoms/episode began/occurred 3 day(s) ago. Possible causes: unknown. The symptoms are aggravated by nothing. The symptoms are alleviated by nothing. The symptoms do not radiate. Associated signs and symptoms: The patient has no apparent associated signs or symptoms. 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 - Social history:: Smoking status: Patient/guardian denies using tobacco, Patient/guardian denies using alcohol. - Ebola Screening: : No symptoms or risks identified at this time. - Family history:: not pertinent. ROS: 12:48 Constitutional: Negative for fever, chills, and weight loss, Eyes: Negative for injury, natasha pain, redness, and discharge, ENT: Negative for injury, pain, and discharge, Neck: Negative for injury, pain, and swelling, Cardiovascular: Negative for chest pain, palpitations, and edema, Respiratory: Negative for shortness of breath, cough, wheezing, and pleuritic chest pain, Back: Negative for injury and pain, : Negative for injury, bleeding, discharge, and swelling, MS/Extremity: Negative for injury and deformity, Skin: Negative for injury, rash, and discoloration, Neuro: Negative for headache, weakness, numbness, tingling, and seizure, Psych: Negative for depression, anxiety, suicide ideation, homicidal ideation, and hallucinations, Allergy/Immunology: Negative for hives, rash, and allergies, Endocrine: Negative for neck swelling, polydipsia, polyuria, polyphagia, and marked weight changes, Hematologic/Lymphatic: Negative for swollen nodes, abnormal bleeding, and unusual bruising. 12:48 Abdomen/GI: Positive for abdominal pain, nausea and vomiting, diarrhea. Exam: 12:49 Constitutional: This is a well developed, well nourished patient who is awake, alert, natasha and in no acute distress. Head/Face: Normocephalic, atraumatic. Eyes: Pupils equal round and reactive to light, extra-ocular motions intact. Lids and lashes normal. Conjunctiva and sclera are non-icteric and not injected. Cornea within normal limits. Periorbital areas with no swelling, redness, or edema. ENT: Nares patent. No nasal discharge, no septal abnormalities noted. Tympanic membranes are normal and external auditory canals are clear. Oropharynx with no redness, swelling, or masses, exudates, or evidence of obstruction, uvula midline. Mucous membranes moist. Neck: Trachea midline, no thyromegaly or masses palpated, and no cervical lymphadenopathy. Supple, full range of motion without nuchal rigidity, or vertebral point tenderness. No Meningismus. Chest/axilla: Normal chest wall appearance and motion. Nontender with no deformity. No lesions are appreciated. Cardiovascular: Regular rate and rhythm with a normal S1 and S2. No gallops, murmurs, or rubs. Normal PMI, no JVD. No pulse deficits. Respiratory: Lungs have equal breath sounds bilaterally, clear to auscultation and percussion. No rales, rhonchi or wheezes noted. No increased work of breathing, no retractions or nasal flaring. Back: No spinal tenderness. No costovertebral tenderness. Full range of motion. Skin: Warm, dry with normal turgor. Normal color with no rashes, no lesions, and no evidence of cellulitis. MS/ Extremity: Pulses equal, no cyanosis. Neurovascular intact. Full, normal range of motion. Neuro: Awake and alert, GCS 15, oriented to person, place, time, and situation. Cranial nerves II-XII grossly intact. Motor strength 5/5 in all extremities. Sensory grossly intact. Cerebellar exam normal. Normal gait. Psych: Awake, alert, with orientation to person, place and time. Behavior, mood, and affect are within normal limits. 12:49 Abdomen/GI: Inspection: abdomen appears normal, Bowel sounds: hyperactive, Palpation: mild abdominal tenderness, in all quadrants, Liver: no appreciated palpable abnormalities, Hernia: not appreciated. Vital Signs: 12:04 BP 139 / 89; Pulse 126; Resp 16; Temp 97.9; Pulse Ox 100% ; Weight 54.88 kg; Height 5 sv ft. 7 in. (170.18 cm); Pain 7/10; 14:19 BP 116 / 92; Pulse 71; Resp 18; Pulse Ox 100% on R/A; mg2 15:00 BP 133 / 80; Pulse 88; Resp 18; Pulse Ox 100% on R/A; Pain 8/10; mg2 16:00 BP 129 / 78; Pulse 89; Resp 18; Temp 98; Pulse Ox 100% on R/A; Pain 2/10; mg2 17:00 BP 130 / 78; Pulse 89; Resp 18; Pulse Ox 100% on R/A; mg2 18:15 BP 132 / 78; Pulse 90; Resp 18; Pulse Ox 100% on R/A; mg2 12:04 Body Mass Index 18.95 (54.88 kg, 170.18 cm) sv MDM: 12:12 Patient medically screened. [facility] 12:49 Data reviewed: vital signs, nurses notes, lab test result(s), radiologic studies, plain natasha films. 02/10 12:19 Order name: Basic Metabolic Panel; Complete Time: 13:39 mg2 02/10 12:19 Order name: CBC with Diff; Complete Time: 13:39 mg2 02/10 12:19 Order name: Creatinine for Radiology; Complete Time: 13:39 mg2 02/10 12:19 Order name: Hepatic Function; Complete Time: 13:39 mg2 02/10 12:19 Order name: Lipase; Complete Time: 13:39 mg2 02/10 12:22 Order name: Urine Dipstick--Ancillary (enter results); Complete Time: 13:39 bd 02/10 12:42 Order name: Abdomen Acute Series XRAY; Complete Time: 14:07 natasha 02/10 12:19 Order name: IV Saline Lock; Complete Time: 12:38 mg2 02/10 12:19 Order name: Labs collected and sent; Complete Time: 12: mg2 02/10 12:19 Order name: Urine Dipstick-Ancillary (obtain specimen); Complete Time: 12: mg2 Administered Medications: 13:03 Drug: NS 0.9% 1000 ml Route: IV; Rate: 1 bolus; Site: left antecubital; mg2 18:37 Follow up: Response: No adverse reaction; IV Status: Completed infusion; IV Intake: mg2 1000ml 13:03 Drug: Zofran 4 mg Route: IVP; Site: left antecubital; mg2 18:37 Follow up: Response: No adverse reaction mg2 13:03 Drug: Pepcid 20 mg Route: IVP; Site: left antecubital; mg2 18:36 Follow up: Response: No adverse reaction mg2 13:03 Drug: Dilaudid 1 mg Route: IVP; Site: left antecubital; mg2 18:35 Follow up: Response: No adverse reaction; Marked relief of symptoms mg2 14:16 Drug: Dilaudid 1 mg Route: IVP; Site: right antecubital; mg2 18:35 Follow up: Response: No adverse reaction mg2 14:16 Drug: Zofran 4 mg Route: IVP; Site: right antecubital; mg2 18:35 Follow up: Response: No adverse reaction mg2 14:40 Drug: NS 0.9% with KCl 20 mEq/L 1000 ml Route: IV; Rate: 150 ml/hr; Site: right hand; mg2 18:35 Follow up: Response: No adverse reaction; IV Status: Completed infusion; IV Intake: mg2 1000ml 14:56 Drug: NS 0.9% 1000 ml Route: IV; Rate: 1 bolus; Site: right hand; mg2 18:36 Follow up: Response: No adverse reaction; IV Status: Completed infusion; IV Intake: mg2 1000ml 18:36 Follow up: Response: No adverse reaction; IV Status: Completed infusion; IV Intake: mg2 1000ml 17:05 Drug: NS 0.9% 1000 ml Route: IV; Rate: 1 bolus; Site: right hand; mg2 18:34 Follow up: Response: No adverse reaction; IV Status: Completed infusion; IV Intake: mg2 1000ml 17:05 Drug: Dilaudid 1 mg Route: IVP; Site: right hand; mg2 18:34 Follow up: Response: No adverse reaction; Marked relief of symptoms mg2 Disposition: 02/10/19 16:59 Discharged to Home. Impression: Abdominal tenderness, Vomiting, Hypokalemia, Volume depletion. - Condition is Fair. - Discharge Instructions: Abdominal Pain, Adult, Dehydration, Adult, Potassium Content of Foods, Nausea and Vomiting, Adult, Nausea and Vomiting, Adult, [id number], Abdominal Pain, Adult, [id number], Dehydration, Adult, [id number], Hypokalemia. - Prescriptions for Bentyl 20 mg Oral Tablet - take 1 tablet by ORAL route every 6 hours As needed; 20 tablet. Pepcid 20 mg Oral Tablet - take 1 tablet by ORAL route every 12 hours for 10 days; 20 tablet. Tylenol- Codeine #3 300-30 mg Oral Tablet - take 2 tablets by ORAL route every 6 hours As needed; 20 tablet. Zofran 4 mg Oral Tablet - take 1 tablet by ORAL route every 12 hours As needed; 20 tablet. - Medication Reconciliation Form, Thank You Letter, Antibiotic Education, Prescription Opioid Use form. - Follow up: Private Physician; When: 2 - 3 days; Reason: Recheck today's complaints, Continuance of care, Re-evaluation by your physician. Follow up: Nathaniel Hernandez MD; When: 2 - 3 days; Reason: Recheck today's complaints, Re-evaluation by your physician. - Problem is new. - Symptoms have improved. Signatures: Dispatcher [employer] EDDoris Paredes RN RN sv Anderson, Corey, MD MD cha Gardose, Michele, RN RN mg2 Corrections: (The following items were deleted from the chart) 17:00 16:59 02/10/2019 16:59 Discharged to Home. Impression: Abdominal tenderness; Vomiting; natasha Hypokalemia. Condition is Fair. Forms are Medication Reconciliation Form, Thank You Letter, Antibiotic Education, Prescription Opioid Use. Follow up: Private Physician; When: 2 - 3 days; Reason: Recheck today's complaints, Continuance of care, Re-evaluation by your physician. Follow up: Nathaniel Hernandez; When: 2 - 3 days; Reason: Recheck today's complaints, Re-evaluation by your physician. Problem is new. Symptoms have improved. natasha 18:39 17:00 02/10/2019 16:59 Discharged to Home. Impression: Abdominal tenderness; Vomiting; mg2 Hypokalemia; Volume depletion. Condition is Fair. Discharge Instructions: Abdominal Pain, Adult, Potassium Content of Foods, Nausea and Vomiting, Adult, Nausea and Vomiting, Adult, Iarf-sw-Aavn, Abdominal Pain, Adult, Xkcm-by-Lchl, Hypokalemia. Prescriptions for Bentyl 20 mg Oral Tablet - take 1 tablet by ORAL route every 6 hours As needed; 20 tablet, Pepcid 20 mg Oral Tablet - take 1 tablet by ORAL route every 12 hours for 10 days; 20 tablet, Tylenol-Codeine #3 300-30 mg Oral Tablet - take 2 tablets by ORAL route every 6 hours As needed; 20 tablet, Zofran 4 mg Oral Tablet - take 1 tablet by ORAL route every 12 hours As needed; 20 tablet. and Forms are Medication Reconciliation Form, Thank You Letter, Antibiotic Education, Prescription Opioid Use. Follow up: Private Physician; When: 2 - 3 days; Reason: Recheck today's complaints, Continuance of care, Re-evaluation by your physician. Follow up: Nathaniel Hernandez; When: 2 - 3 days; Reason: Recheck today's complaints, Re-evaluation by your physician. Problem is new. Symptoms have improved. natasha
[2019-02-10 19:59] VITALS: O2SAT 100
[2019-02-10 20:04] VITALS: TEMP 98
[2019-02-10 20:07] VITALS: BP 132/78
== END 2019-02-10 18:39 | disposition home or self-care (01) ==
LOC: ER 12:00
DX: R11.10 Vomiting, unspecified (principal); E87.6 Hypokalemia; E86.9 Volume depletion, unspecified; Z91.09 Other allergy status, other than to drugs and biological substances; Z91.013 Allergy to seafood; Z88.8 Allergy status to other drugs, medicaments and biological substances
CPT/HCPCS: 36415; 74022; 80048; 80076; 81003; 83690; 85025; 96361; 96374; 96375; 99284; J1170; J2405; J7030

== ENCOUNTER 2019-02-25 15:51 | Emergency (ER) | payer SELFPAY ==
--- OUTSIDE RECORDS SUMMARY | 2019-02-25 15:53 | XMS REPORT ---
:1985 [facility] Address [address] [place] [address] Dr. Bolton [address] [place] [id number] Care Team Providers Name Role Phone Unavailable Unavailable Unavailable Problems This patient has no known problems. Allergies, Adverse Reactions, Alerts This patient has no known allergies or adverse reactions. Medications This patient has no known medications.
[2019-02-25] MEDS ORDERED: ONDANSETRON 4 MG/2 ML VIAL ONE (16:32)
[2019-02-25] MEDS ORDERED: NA CHLORIDE 0.9% 1,000 ML ONE (16:32)
[2019-02-25] MEDS ORDERED: MEPERIDINE HCL 50 MG/ML ONE ×2 (16:32→18:27)
[2019-02-25 16:52] LABS: Absolute Lymphocytes (CBC) 1.1 K/uL (0.7-4.9); Basophils % 0.6 % (0-1.3); Hematocrit 35.8 % (36.0-45.0); Lymphocytes % 14.2 % (15.3-44.8); MPV 9.6 fL (7.6-11.3); RBC Red Blood Cell Count 4.19 M/uL (3.86-4.86)
--- NOTE | 2019-02-25 17:08 | RAD REPORT ---
EXAM DESCRIPTION: CT - Abdomen Pelvis Wo Contrast - 02/25/2019 4:53 pm CLINICAL HISTORY: Abdominal pain COMPARISON: January 2018 TECHNIQUE: Computed axial tomography of the abdomen and pelvis was obtained. IV and oral contrast we re not requested. All CT scans are performed using dose optimization technique as appropriate and may include automated exposure control or mA/KV adjustment according to patient size. FINDINGS: The evaluation of solid organs, vessels and bowel is limited secondary to the lack of con trast administration. The liver, spleen, pancreas, and adrenals appear grossly normal. The gallbladder has been removed. Punctate bilateral renal calculi are seen. Extrarenal pelves are present. Eight ureteral calculus is not seen. A bladder calculus is not noted. The appendix is normal. There is no evidence of diverticulitis. A hysterectomy has been performed. Large amount stool is present throughout the colon Postsurgical changes a ventral hernia repair are noted. IMPRESSION: Bilateral tiny nonobstructing renal calculi Large amount of stool throughout the colon
[2019-02-25 17:13] LABS: ALT/SGPT 36 U/L (12-78); AST/SGOT 48 U/L (15-37); Albumin 4.2 g/dL (3.4-5.0); Alkaline Phosphatase 77 U/L (45-117); BUN Blood Urea Nitrogen 12 mg/dL (7-18); Bicarbonate 27 mmol/L (21-32); Bilirubin Direct 0.1 mg/dL (0-0.2); Bilirubin Total 0.5 mg/dL (0.2-1.0); Glucose Level 93 mg/dL (74-106); Lipase 101 U/L (73-393); Potassium 3.9 mmol/L (3.5-5.1); Protein, Total 7.6 g/dL (6.4-8.2); Sodium Level 140 mmol/L (136-145)
--- NOTE | 2019-02-25 19:03 | ER ---
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 Transition of care: hb patient was not received from another setting of care. Onset of symptoms was February 25, 2019. Risk Assessment: Do you want to hurt yourself or someone else? Patient reports no desire to harm self or others. 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 - Social history:: Smoking status: Patient/guardian denies using tobacco. - Ebola Screening: : No symptoms or risks identified at this time. - Family history:: not pertinent. - Hospitalizations: : No recent hospitalization is reported. Screenin:26 Abuse screen: Denies threats or abuse. Denies injuries from another. Nutritional aj1 screening: No deficits noted. Tuberculosis screening: No symptoms or risk factors identified. Assessment: 16:26 General: Appears in no apparent distress. comfortable, Behavior is calm, cooperative, aj1 appropriate for age. Pain: Complains of pain in right upper quadrant Pain does not radiate. Pain currently is 8 out of 10 on a pain scale. Neuro: Level of Consciousness is awake, alert, obeys commands, Oriented to person, place, time, situation. Cardiovascular: Patient's skin is warm and dry. Respiratory: Airway is patent Respiratory effort is even, unlabored, Respiratory pattern is regular, symmetrical. GI: Abdomen is flat, non-distended, Bowel sounds present X 4 quads. Abd is soft X 4 quads. : No signs and/or symptoms were reported regarding the genitourinary system. EENT: No signs and/or symptoms were reported regarding the EENT system. Derm: No signs and/or symptoms reported regarding the dermatologic system. Skin is pink, warm \T\ dry. normal. Musculoskeletal: No signs and/or symptoms reported regarding the musculoskeletal system. Circulation, motion, and sensation intact. 17:30 Reassessment: Patient appears in no apparent distress at this time. No changes from aj1 previously documented assessment. Patient and/or family updated on plan of care and expected duration. Pain level reassessed. Patient is alert, oriented x 3, equal unlabored respirations, skin warm/dry/pink. 18:30 Reassessment: Patient appears in no apparent distress at this time. No changes from aj1 previously documented assessment. Patient and/or family updated on plan of care and expected duration. Pain level reassessed. Patient is alert, oriented x 3, equal unlabored respirations, skin warm/dry/pink. 19:15 Reassessment: Patient appears in no apparent distress at this time. Patient is alert, aa1 oriented x 3, equal unlabored respirations, skin warm/dry/pink. Discussed d/c \T\ f/u instructions with pt; denies questions or concerns at this time. Ambulatory to lobby with steady gait. Patient states feeling better. Vital Signs: 16:07 BP 149 / 109; Pulse 98; Resp 20; Temp 98.8; Pulse Ox 100% on R/A; Weight 49.9 kg; hb Height 5 ft. 7 in. (170.18 cm); Pain 9/10; 16:38 BP 123 / 78; Pulse 72; Resp 16; Temp 98.7; Pulse Ox 100% on R/A; mh5 17:25 BP 120 / 81; Pulse 81; Resp 17; Temp 98.4(O); Pulse Ox 100% ; mh5 18:44 BP 114 / 85; Pulse 81; Resp 16; Pulse Ox 100% on R/A; aj1 16:07 Body Mass Index 17.23 (49.90 kg, 170.18 cm) ED Course: 15:54 Patient arrived in ED. mr 16:06 Triage completed. hb 16:07 Arm band placed on. hb 16:18 Bo, Tiesha, RN is Primary Nurse. aj1 16:18 Danny Trujillo MD is Attending Physician. rn 16:26 Patient has correct armband on for positive identification. Bed in low position. Call aj1 light in reach. 16:26 No provider procedures requiring assistance completed. aj1 16:44 Inserted saline lock: 22 gauge in right hand, using aseptic technique. aj1 16:53 CT Abd/Pelvis - Without Contrast In Process Unspecified. EDMS 19:09 IV discontinued, intact, bleeding controlled, No redness/swelling at site. Pressure ds4 dressing applied. Administered Medications: 16:43 Drug: Demerol 50 mg Route: IVP; Site: right antecubital; aj1 18:43 Follow up: Response: No adverse reaction; Pain is decreased; RASS: Alert and Calm (0) aj1 16:44 Drug: NS 0.9% 1000 ml Route: IV; Rate: 1000 ml; Site: right antecubital; aj1 16:44 Drug: Zofran 4 mg Route: IVP; Site: right antecubital; aj1 18:43 Follow up: Response: No adverse reaction aj1 18:42 Drug: Demerol 50 mg Route: IVP; Site: right hand; aj1 19:15 Follow up: Response: No adverse reaction; Pain is decreased; RASS: Alert and Calm (0) aa1 Outcome: 19:02 Discharge ordered by . rn 19:15 Discharged to home ambulatory, with family. aa1 19:15 Condition: good 19:15 Discharge instructions given to patient, family, Instructed on discharge instructions, follow up and referral plans. medication usage, Demonstrated understanding of instructions, follow-up care, medications, Prescriptions given X 3. 19:16 Patient left the ED. aa1 Signatures: Dispatcher [employer] EDMO Tiesha Soriano, CONNIE ROSALES aj1 Taylor Allen RN RN aa1 Rivera, Mary mr Danny Trujillo MD MD rn Swanson, Donovan ds4 Dulce Maria Lacey RN RN hb Martinez, Maria [facility]
--- NOTE | 2019-02-25 19:03 | EDPHYS ---
Physician Documentation [facility] Name: Veronica Valentin Age: 33 yrs Sex: Female : 1985 Arrival Date: 02/25/2019 Time: 15:54 Bed 14 Private MD: ED Physician Danny Trujillo HPI: 02/25 16:30 This 33 yrs old Female presents to ER via Ambulatory with complaints of rn Abdominal Pain. 16:30 The patient presents with abdominal pain in the epigastric area, in the right upper rn quadrant. Onset: The symptoms/episode began/occurred this morning. The symptoms do not radiate. Associated signs and symptoms: Pertinent positives: nausea and vomiting, Pertinent negatives: anorexia, blood in stools, chest pain, constipation, diarrhea, dysuria, fever, shortness of breath, vaginal discharge. The symptoms are described as intermittent, sharp. Modifying factors: The symptoms are alleviated by nothing, the symptoms are aggravated by movement, touching the area. Severity of pain: At its worst the pain was moderate in the emergency department the pain is unchanged. The patient has not experienced similar symptoms in the past. The patient has been recently seen at the [facility] Emergency Department. Reports chronic abd issues, upper abd pain with nausea/vomiting, assoc with "white stool with green specks". reports feels a little different from abd pain in past. Seen by Dr. Viramontes 1.5 weeks ago for 5 days of diarrhea. . 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 - Social history:: Smoking status: Patient/guardian denies using tobacco. - Ebola Screening: : No symptoms or risks identified at this time. - Family history:: not pertinent. - Hospitalizations: : No recent hospitalization is reported. ROS: 16:30 Constitutional: Negative for fever, chills Eyes: Negative for injury, pain, redness, rn and discharge, Neck: Negative for injury, pain, and swelling, Cardiovascular: Negative for chest pain, palpitations, and edema, Respiratory: Negative for shortness of breath, cough, wheezing, and pleuritic chest pain, Abdomen/GI: + upper abd pain and nausea/vomiting : Negative for injury, bleeding, discharge, and swelling, MS/Extremity: Negative for injury and deformity, Skin: Negative for injury, rash, and discoloration, Neuro: Negative for headache, numbness, tingling, and seizure. Exam: 16:30 Constitutional: Thin female, appears uncomfortable Head/Face: Normocephalic, rn atraumatic. ENT: dry MM Cardiovascular: Regular rate and rhythm. No pulse deficits. Respiratory: No increased work of breathing, no retractions or nasal flaring. Abdomen/GI: soft, mild tenderness RUQ and epigastric region Skin: Warm, dry MS/ Extremity: Pulses equal, no cyanosis. Neurovascular intact. Full, normal range of motion. Equal circumference. Neuro: Awake and alert, GCS 15 Vital Signs: 16:07 BP 149 / 109; Pulse 98; Resp 20; Temp 98.8; Pulse Ox 100% on R/A; Weight 49.9 kg; hb Height 5 ft. 7 in. (170.18 cm); Pain 9/10; 16:38 BP 123 / 78; Pulse 72; Resp 16; Temp 98.7; Pulse Ox 100% on R/A; mh5 17:25 BP 120 / 81; Pulse 81; Resp 17; Temp 98.4(O); Pulse Ox 100% ; mh5 18:44 BP 114 / 85; Pulse 81; Resp 16; Pulse Ox 100% on R/A; aj1 16:07 Body Mass Index 17.23 (49.90 kg, 170.18 cm) hb MDM: 16:18 Patient medically screened. rn 19:00 Differential diagnosis: bowel obstruction, diverticulitis, gastritis, gastroesophageal rn reflux disease, non-specific abd pain, pancreatitis, Peptic Ulcer Disease, Ureterolithiasis, urinary tract infection. Data reviewed: vital signs, nurses notes, lab test result(s), radiologic studies, CT scan, and as a result, I will discharge patient. Counseling: I had a detailed discussion with the patient and/or guardian regarding: the historical points, exam findings, and any diagnostic results supporting the discharge/admit diagnosis, lab results, radiology results, the need for outpatient follow up, to return to the emergency department if symptoms worsen or persist or if there are any questions or concerns that arise at home. Response to treatment: the patient's symptoms have markedly improved after treatment, and as a result, I will discharge patient. Special discussion: I discussed with the patient/guardian in detail that at this point there is no indication for admission to the hospital. It is understood, however, that if the symptoms persist or worsen the patient needs to return immediately for re-evaluation. Based on the history and exam findings, there is no indication for further emergent testing or inpatient evaluation. I discussed with the patient/guardian the need to see the lapidarist for further evaluation of the symptoms. 02/25 16:29 Order name: Basic Metabolic Panel; Complete Time: 17: 02/25 16:29 Order name: CBC with Diff; Complete Time: 17: 02/25 16:29 Order name: Hepatic Function; Complete Time: 17: 02/25 16:29 Order name: Lipase; Complete Time: 17: 02/25 16:29 Order name: CT Abd/Pelvis - Without Contrast; Complete Time: 17: 02/25 16:29 Order name: IV Saline Lock; Complete Time: 16:44 rn 02/25 16:29 Order name: Labs collected and sent; Complete Time: 16:44 rn Administered Medications: 16:43 Drug: Demerol 50 mg Route: IVP; Site: right antecubital; aj1 18:43 Follow up: Response: No adverse reaction; Pain is decreased; RASS: Alert and Calm (0) aj1 16:44 Drug: NS 0.9% 1000 ml Route: IV; Rate: 1000 ml; Site: right antecubital; aj1 16:44 Drug: Zofran 4 mg Route: IVP; Site: right antecubital; aj1 18:43 Follow up: Response: No adverse reaction aj1 18:42 Drug: Demerol 50 mg Route: IVP; Site: right hand; aj1 19:15 Follow up: Response: No adverse reaction; Pain is decreased; RASS: Alert and Calm (0) aa1 Disposition: 02/25/19 19:02 Discharged to Home. Impression: Upper abdominal pain, unspecified. - Condition is Stable. - Discharge Instructions: Abdominal Pain, Adult. - Prescriptions for Zofran ODT 4 mg Oral tablet,disintegrating - place 1 tablet by TRANSLINGUAL route every 8 hours As needed; 20 tablet. Bentyl 20 mg Oral Tablet - take 1 tablet by ORAL route every 6 hours As needed; 20 tablet. Tylenol- Codeine #3 300-30 mg Oral Tablet - take 2 tablets by ORAL route every 6 hours As needed; 20 tablet. - Medication Reconciliation Form, Thank You Letter, Antibiotic Education, Prescription Opioid Use form. - Follow up: Private Physician; When: As needed; Reason: Recheck today's complaints, Re-evaluation by your physician. - Problem is an acute exacerbation. - Symptoms have improved. Signatures: Dispatcher [employer] EDMS Tiesha Soriano RN RN aj1 Taylor Allen RN RN aa1 Danny Trujillo MD MD rn Baxter, Heather, RN RN Corrections: (The following items were deleted from the chart) 19:16 19:02 02/25/2019 19:02 Discharged to Home. Impression: Upper abdominal pain, aa1 unspecified. Condition is Stable. Forms are Medication Reconciliation Form, Thank You Letter, Antibiotic Education, Prescription Opioid Use. Follow up: Private Physician; When: As needed; Reason: Recheck today's complaints, Re-evaluation by your physician. Problem is an acute exacerbation. Symptoms have improved. rn
[2019-02-25 20:17] VITALS: O2SAT 100
[2019-02-25 20:23] VITALS: TEMP 98.4
[2019-02-26 06:07] VITALS: BP 114/85
== END 2019-02-25 19:16 | disposition home or self-care (01) ==
LOC: ER 15:51
DX: R10.10 Upper abdominal pain, unspecified (principal); Z91.09 Other allergy status, other than to drugs and biological substances; Z88.8 Allergy status to other drugs, medicaments and biological substances; Z91.013 Allergy to seafood
CPT/HCPCS: 36415; 74176; 80048; 80076; 83690; 85025; 96374; 96375; 99284; J2175; J2405; J7030

== ENCOUNTER 2020-03-15 09:59 | Emergency (ER) | payer SELFPAY ==
--- OUTSIDE RECORDS SUMMARY | 2020-03-15 10:16 | XMS REPORT | Clinical Summary ---
:1985 Author Organization [facility] Address [address] [place] [address] Care Team Providers Name Role Phone Unavailable Primary Care Provider Unavailable Allergies Not on File Medications Not on file Active Problems Not on file Social History Tobacco Use Types Packs/Day Years Used Date Never Assessed Sex Assigned at Date Recorded Not on file Last Filed Vital Signs Not on file Plan of Treatment Not on file Results Not on fileafter 03/15/2019
--- OUTSIDE RECORDS SUMMARY | 2020-03-15 10:16 | XMS REPORT | Continuity of Care Document ---
:1985 Author Organization [facility] t Address [address] [place] [address] [address] [place] [address] Care Team Providers Name Role Phone [place] Leonor MENDOZA Attending Clinician Spencer Carlos MD Attending Clinician Lobo DOCKERY Attending Clinician Problems This patient has no known problems. Allergies, Adverse Reactions, Alerts This patient has no known allergies or adverse reactions. Social History Social Habit Start Date Stop Date Quantity Comments Source Sex Assigned At [facility] Medications This patient has no known medications. Procedures This patient has no known procedures. Encounters Start End Encounter Admission Attending Care Care Encounter Source Date/Time Date/Time Type Type Clinicians Facility Department ID 2020-02-15 2020-02-16 Emergency BON [place] [id number] 20:57:00 01:48:00 Jeffry Browne [id number] [place] [id number] [place] [id number] 2019-05-30 2019-05-30 Emergency BON Carlos [id number] 16:24:26 17:34:00 [facility] [id number] [place] [id number] [facility] [id number] [address] ([facility]) 2019-03-26 2019-03-26 Patient BON [place] [id number] 00:00:00 00:00:00 Secure Msg [facility] [id number] [place] [id number] [place] [id number] [facility] 2018-11-03 2018-11-03 Office Lobo [facility] [id number] 09:48:32 17:36:[id number] [place] [id number] [place] [id number] [facility] Results This patient has no known results.
--- OUTSIDE RECORDS SUMMARY | 2020-03-15 10:17 | XMS REPORT | Summary of Care ---
:1985 Author Organization [facility] Address [address] [place] [address] Care Team Providers Name Role Phone Pcp, Does Not Have A Primary Care Provider Reason for Referral MRI/CAT Scan (STAT) Status Reason Specialty Diagnoses / Referred By Referred To Procedures Contact Contact New Request Diagnostic Diagnoses Abdominal pain, unspecified abdominal location Wilson, Jeffry B, Radiology Procedures CT ABDOMEN PELVIS WO CONTRAST FASHION DIRECTOR [address] [place] [phone] Reason for Visit Reason Comments Abdominal Pain Auth/Cert Status Reason Specialty Diagnoses / Referred By Referred To Procedures Contact Contact Emergency Medicine [facility] Em ergency Dept [address] [place], [place] [address] Fax: Encounter Details Date Type Department Care Team Description 02/15/2020 - Emergency ADC-Emergency Wilson, Jeffry B, Abdominal pain, unspecified abdominal location (Primary Dx); 02/16/2020 Department FASHION DIRECTOR Chest pain, unspecified type; [address] [place] [address] Vomiting, intractability of vomiting not specified, presence of nausea not specified, [place] [phone] Allergies Active Allergy Reactions Severity Noted Date Comments Diphenhydramine Hcl Anaphylaxis 05/12/2012 Iodine And Iodide Containing Products Hives Phenergan Plain Hallucinations High 01/29/2018 Shellfish Derived Anaphylaxis 02/14/2018 documented as of this encounter (statuses as of 02/16/2020) Medications Medication Sig Dispensed Refills Start Date End Date Status IBUPROFEN ORAL Take by mouth. 0 Active inulin (FIBER GUMMIES Take by mouth. 0 Active ORAL) polyethylene glycol Take by mouth. 0 Active 3350 (MIRALAX ORAL) omeprazole 40 mg Take 1 capsule 30 capsule 5 07/31/2018 Active capsuleIndications: by mouth daily. Abdominal pain, epigastric cyclobenzaprine 10 mg Take 1 tablet by 60 tablet 5 11/08/2018 Active tabletIndications: mouth 2 (two) Abdominal pain, times daily. unspecified abdominal location sennosides (SENNA) 8.6 Take 1 tablet by 30 tablet 5 11/08/2018 Active mg tabletIndications: mouth daily. Chronic abdominal pain traMADol (ULTRAM) 50 mg Take 1 tablet by 12 tablet 0 0 Active tabletIndications: mouth every 6 Abdominal pain, (six) hours as unspecified abdominal needed for Pain location, Chronic (scale 7-10). abdominal pain, Other constipation, Right sided abdominal pain ondansetron 4 mg Take 1 tablet by 12 tablet 0 05/30/2019 Active disintegrating mouth every 8 tabletIndications: (eight) hours as Abdominal pain, needed for unspecified abdominal Nausea and location, Chronic Vomiting (N/V). abdominal pain, Other constipation, Right sided abdominal pain ondansetron 4 mg Take 1 tablet by 12 tablet 0 02/16/2020 Active disintegrating mouth every 12 tabletIndications: (twelve) hours Vomiting, as needed for intractability of Nausea and vomiting not specified, Vomiting (N/V). presence of nausea not specified, unspecified vomiting type dicyclomine (BENTYL) 10 Take 1 capsule 20 capsule 0 02/16/2020 Active mg capsuleIndications: by mouth 4 Abdominal pain, (four) times unspecified abdominal daily as needed location for Abdominal pain. 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 Abdominal pain, epigastric 05/21/2018 Overview: Added automatically from request for liset landis [id number] Other constipation 05/21/2018 Overview: Added automatically from request for liset landis [id number] Family history of colon cancer 05/21/2018 Overview: Added automatically from request for liset landis [id number] Rectal bleeding 05/21/2018 Overview: Added automatically from request for liset landis [id number] Abdominal pain 02/13/2018 Acute pyelonephritis without lesion of renal medullary necrosis 04/27/2012 documented as of this encounter (statuses as of 02/16/2020) Social History Tobacco Use Types Packs/Day Years Used Date Former Smoker Cigarettes 0.5 2 02/27/2010 - 1 04/29/2014 Smokeless Tobacco: Current User Comments: vape use daily Alcohol Use Drinks/Week oz/Week Comments No quit 5 yrs ago, was using on weekends Sex Assigned at Date Recorded Not on file COVID-19 Exposure Response Date Recorded In the last month, have you been in contact with No / Unsure 02/15/2020 8:52 PM CLIENT ADMINISTRATOR someone who was confirmed or suspected to have Coronavirus / COVID-19? documented as of this encounter Last Filed Vital Signs Vital Sign Reading Time Taken Comments Blood Pressure 111/82 02/16/2020 1:00 AM CLIENT ADMINISTRATOR Pulse 60 02/16/2020 1:00 AM CLIENT ADMINISTRATOR Temperature 36.6 C (97.8 F) 02/16/2020 1:00 AM CLIENT ADMINISTRATOR Respiratory Rate 13 02/16/2020 1:00 AM CLIENT ADMINISTRATOR Oxygen Saturation 100% 02/16/2020 1:00 AM CLIENT ADMINISTRATOR Inhaled Oxygen Concentration - - Weight 52.2 kg (115 lb) 02/15/2020 8:59 PM CLIENT ADMINISTRATOR Height - - Body Mass Index 18.01 11/03/2018 10:02 AM CDT documented in this encounter Discharge Instructions JuanPrJeffry senior FNP - 02/16/2020DIAGNOSIS 1. Abdominal pain 2. Chest pain NO LIFE-THREATENING FINDINGS ON TODAY'S EXAM. RECOMMEND FOLLOW-UP WITH A PRIMARY CARE PROVIDER OR SPECIALIST IN 2-5 DAYS, ESPECIALLY IF NO IMPROVEMENT IN SYMPTOMS. MAY FOLLOW-UP WITH A PROVIDER OF YOUR CHOICE, SUCH : 1. A PHYSICIAN OF YOUR CHOICE 2. [address] [place] [address], [address]; [phone] 3. [facility], [address], [place]; [phone] OR, IF YOU WISH TO FOLLOW-UP WITHIN THE [facility], MAY TRY THESE OPTIONS (CLINIC APPOINTMENTS AVAILABLE ON KUAV-PC-HBER BASIS): 1. SCHEDULE AN APPOINTMENT ONLINE AT [facility] 2. OR CALL THE [facility] ACCESS CENTER AT OR 3. OR CALL YOUR [facility] PHYSICIAN'S OFFICE DIRECTLY IF YOU ARE ALREADY AN ESTABLISHED [facility] PATIENT. RETURN TO ER FOR WORSENING OF SYMPTOMS. AttachmentsThe following attachments cannot be sent through Care Everywhere. Abdominal Pain, Adult (Montenegrin)Chest Pain, Uncertain Cause (Montenegrin)documented in this encounter ED Notes Justin Doran RN - 02/15/2020 8:58 PM CSTPatient states, "I have been vomiting for the past 3 days and when I went to the restroom I diarrhea. The pain in my stomach is getting worse." Patient has history of hysterectomy and SBO. documented in this encounter Miscellaneous Notes ED Nurse Note - Harika Gutierrez RN - 02/16/2020 1:43 AM CSTPt given printed and verbal discharge instructions regarding abdominal pain, chest pain, encouraged hydration, Prescriptions provided Bentyl, Zofran Pt verbalized understanding of instructions, pt awake alert oriented, resp reg unlabored, skin w/d, color appropriate for race, moves all ext well,pt encouraged to follow up with pcp and or GI Advised to seek medical attention for new/prolonged/worsening of symptoms, Symptoms improved No adverse reaction to meds given in ER noted upon discharge PIV d'cd, dressing to site, catheter in tact. Awake, alert oriented, resp reg unlabored, skin w/d, pt leaving amb with steady gait, in no apparent distress, D Nurse Note - Harika Gutierrez RN - 02/15/2020 10:40 PM CSTReceived report from Constance De Acosta RN, assumed care. D Nurse Note - Constance Sheets RN - 02/15/2020 10:15 PM CSTVeronica in lab notified of Troponin add-on. D Nurse Note - Constance Sheets RN - 02/15/2020 10:11 PM CSTEntered room, Pt reports CP that started approx 5 minutes ago. Describes as sharp to left side of chest. ERP notified. documented in this encounter Plan of Treatment Name Type Priority Associated Diagnoses Date/Ti me LAB ONLY COVID LAB STAT Abdominal pain, 02/15/2020 9:06 PM INTERPRETATION unspecified abdominal CLIENT ADMINISTRATOR location Name Type Priority Associated Diagnoses Order S chedule LAB ONLY COVID LAB Routine Abdominal pain, ONCE for 1 INTERPRETATION unspecified Occurrences abdominal location starting 02/15/2020 until 0 EKG-12 LEAD ROUTINE HEART STATION STAT Chest pain, ONCE fo r 1 ONCE unspecified type Occurrences starting 2019 until 0 Health Maintenance Due Date Last Done Comments VARICELLA VACCINES (1 of 2 - 1985 2-dose childhood series) Depression Screening 1996 DTaP,Tdap,and Td Vaccines (1 - 08/19/2003 Tdap) PAP SMEAR 2005 INFLUENZA VACCINE (#1) 2019 PNEUMOCOCCAL 0-64 YEARS COMBINED Aged Out No longer eligible based on SERIES patient's age to complete this topic documented as of this encounter Procedures Procedure Name Priority Date/Time Associated Comments Diagnosis TROPONIN I STAT 02/16/2020 1:06 Chest pain, Results for this AM CLIENT ADMINISTRATOR unspecified type procedure a re in the results section. CT ABDOMEN PELVIS STAT 02/15/2020 9:27 Abdominal pain, Res ults for this WO CONTRAST PM CLIENT ADMINISTRATOR unspecified procedure are i n abdominal location the resul ts section. URINALYSIS STAT 02/15/2020 9:15 Abdominal pain, Results for this PM CLIENT ADMINISTRATOR unspecified procedure are i n abdominal location the resul ts section. COVID-19 (ID NOW STAT 02/15/2020 9:06 Abdominal pain, Resu lts for this RAPID TESTING) PM CLIENT ADMINISTRATOR unspecified procedure are in abdominal location the resul ts section. CBC WITH DIFF STAT 02/15/2020 9:06 Abdominal pain, Results for this PM CLIENT ADMINISTRATOR unspecified procedure are i n abdominal location the resul ts section. BASIC METABOLIC STAT 02/15/2020 9:06 Abdominal pain, Resul ts for this PANEL (NA, K, CL, PM CLIENT ADMINISTRATOR unspecified procedure are in CO2, GLUCOSE, BUN, abdominal location the results CREATININE, CA) section. HEPATIC FUNCTION STAT 02/15/2020 9:06 Abdominal pain, Resu lts for this PANEL (68253) PM CLIENT ADMINISTRATOR unspecified procedure are in (ALB,T.PRO,BILI abdominal location the re sults T,BU/BC,ALT,AST,ALK section. PHOS) TROPONIN I STAT Add-On 02/15/2020 9:06 Chest pain, Results for this PM CLIENT ADMINISTRATOR unspecified type procedure a re in the results section. LIPASE STAT 02/15/2020 9:06 Abdominal pain, Results for this PM CLIENT ADMINISTRATOR unspecified procedure are i n abdominal location the resul ts section. NOTICE OF PRIVACY Routine 02/15/2020 8:52 PRACTICES PM CLIENT ADMINISTRATOR CONSENT/REFUSAL FOR Routine 02/15/2020 8:51 DIAGNOSIS AND PM CLIENT ADMINISTRATOR TREATMENT documented in this encounter Results TROPONIN I (02/16/2020 1:06 AM CLIENT ADMINISTRATOR) Pathologist Sig nature TROPONIN I <0.012 <=0.034 ng/mL [facility] Specimen Blood - VENOUS Narrative Performed At Equal or Less than 0.034 ng/ml---Normal [facility] Note: Cardiac troponin begins to rise 3-4 hours after the onset of ischemia. Repeat in 4-6 hours if the sample was drawn within 3-4 hours of the onset of the symptom and found normal. Between 0.035 and 0.120 ng/mL--- Borderline. Questionable myocardial injury or necros is Note: Serial measurement may be necessary to confirm or exclude the diagnosis of myocardial injury or necrosis; Clinical correlation (symptoms, EKGs, imaging studies, and others) required; Repeat in 4-6 hours if clinically indicated. Equal or Higher than 0.121 ng/mL---Abnormal. Myocardial Injury or Necrosis Likely Biotin has been reported to cause a negative bias, interpret results relative to patient's use of biotin. Performing Organization Address City/State/Zipcode Phone Number [facility] CLIA: [id number] [place] [address] ABDOMEN PELVIS WO CONTRAST (02/15/2020 9:27 PM CLIENT ADMINISTRATOR) Specimen Impressions Performed At PACS/VR/DOSE 1. Punctate nonobstructive bilateral r enal calculi. 2. Mild hepatomegaly. Status post chol ecystectomy and hysterectomy. Preliminary Report Dictated by Resident: Ramonita Guzman MD., have reviewe d this study and agree with the above report. Narrative Performed At PACS/VR/DOSE EXAM: CT ABDOMEN AND PELVIS WITHOUT CONT RAST HISTORY: 34-year-old female complaints of nausea, vomi ting and diarrhea for the past 3 days. COMPARISON: CT abdomen-pelvis dated 05/30. DOSE: 191 mGy-cm. TECHNIQUE AND FINDINGS: Contiguous axial imaging from the level of the lung bases through the pubic symphysis was pe rformed without the intravenous administration of contrast. Coronal and sagittal reconstructions were obtained. Auto mA and/or iterative rec onstruction were used to reduce radiation dose. FINDINGS: LOWER THORAX: The lungs bases are clear. No cardiomegaly. The left diaphragm is slightly elevated, unchange d. LIVER: The liver is enlarged, measures 18.1 cm in cran iocaudal dimension. Normal contour. No focal hepatic lesions are identifie d within limitation of a noncontrast study. GALLBLADDER AND BILIARY TREE: Surgical absence of the gallbladder is noted. Slight prominence of the common bile duct, measuring u p to 0.6 cm, likely related to reservoir phenomenon, seconda ry to prior cholecystectomy. SPLEEN: No splenomegaly. PANCREAS: No ductal dilation or masses. ADRENAL GLANDS: No adrenal nodules. KIDNEYS: Multiple punctate hypodensities are seen in t he kidneys (2:62, 58 and 59). No hydronephrosis or masses. PERITONEUM AND RETROPERITONEUM: No free air or fluid. LYMPH NODES: No lymphadenopathy. GI TRACT: Surgical clips are seen within the mid abdom en. A moderate amount of stool and gas is seen throughout the colon down to the rectum. No dilation or wall thickening. PELVIS/BLADDER: Surgical absence of the uterus. The bladder is decompressed. VESSELS: Unremarkable. BONES AND SOFT TISSUES: No suspicious ly tic or sclerotic bony lesions. Procedure Note [facility], Radiant Results Inft User - 2019 10:31 PM CLIENT ADMINISTRATOR EXAM: CT ABDOMEN AND PELVIS WITHOUT CONT RAST HISTORY: 34-year-old female complaints o f nausea, vomiting and diarrhea for the past 3 days. COMPARISON: CT abdomen-pelvis dated 05/30. DOSE: 191 mGy-cm. TECHNIQUE AND FINDINGS: Contiguous axial imaging from the level of the lung bases through the pubic symphysis was pe rformed without the intravenous administration of contrast. Coronal and sagittal reconstructions were obtained. Auto mA and/or iterative dimple nstruction were used to reduce radiation dose. FINDINGS: LOWER THORAX: The lungs bases are clear. No cardiomegaly. The left diaphragm is slightly elevated, unchange d. LIVER: The liver is enlarged, measures 1 8.1 cm in craniocaudal dimension. Normal contour. No focal hepatic lesions are identified within limitation of a noncontrast study. GALLBLADDER AND BILIARY TREE: Surgical a bsence of the gallbladder is noted. Slight prominence of the common bile ivonne t, measuring up to 0.6 cm, likely related to reservoir phenomenon, seconda ry to prior cholecystectomy. SPLEEN: No splenomegaly. PANCREAS: No ductal dilation or masses. ADRENAL GLANDS: No adrenal nodules. KIDNEYS: Multiple punctate hypodensities are seen in the kidneys (2:62, 58 and 59). No hydronephrosis or masses. PERITONEUM AND RETROPERITONEUM: No free air or fluid. LYMPH NODES: No lymphadenopathy. GI TRACT: Surgical clips are seen within the mid abdomen. A moderate amount of stool and gas is seen throughout the colon down to the rectum. No dilation or wall thickening. PELVIS/BLADDER: Surgical absence of the uterus. The bladder is decompressed. VESSELS: Unremarkable. BONES AND SOFT TISSUES: No suspicious ly tic or sclerotic bony lesions. IMPRESSION 1. Punctate nonobstructive bilateral re nal calculi. 2. Mild hepatomegaly. Status post henry cystectomy and hysterectomy. Preliminary Report Dictated by Resident: Ramonita Guzman MD., have reviewed this study and agree with the above report. Performing Organization Address City/State/Zipcode Phone Number PACS/VR/DOSE Urinalysis (02/15/2020 9:15 PM CLIENT ADMINISTRATOR) Pathologist Sig nature APPEARANCE Clear Clear [facility] COLOR Yellow Yellow [facility] PH 7.0 4.8 - 8.0 [facility] SP GRAVITY 1.015 1.003 - 1.030 [facility] GLU U QUAL Normal Normal [facility] BLOOD 1+ (A) Negative [facility] KETONES Negative Negative [facility] PROTEIN Negative Negative [facility] UROBILIN Normal Normal [facility] BILIRUBIN Negative Negative [facility] NITRITE Negative Negative [facility] [place] Negative Negative [facility] RBC/HPF 3 0 - 3 HPF [facility] WBC/HPF <1 0 - 5 HPF [facility] BACTERIA Negative Negative [facility] SQ EPITH 1 HPF [facility] HYAL CAST 1 <=2 LPF [facility] Specimen Urine - URINE, CLEAN CATCH Performing Organization Address [facility] [address]/[facility] Phone Number [facility] CLIA: [id number] [place] [address] TROPONIN I (02/15/2020 9:06 PM CLIENT ADMINISTRATOR) Pathologist Sig nature TROPONIN I <0.012 <=0.034 ng/mL [facility] Specimen Blood - VENOUS Narrative Performed At Equal or Less than 0.034 ng/ml---Normal [facility] Note: Cardiac troponin begins to rise 3-4 hours after the onset of ischemia. Repeat in 4-6 hours if the sample was drawn within 3-4 hours of the onset of the symptom and found normal. Between 0.035 and 0.120 ng/mL--- Borderline. Questionable myocardial injury or necros is Note: Serial measurement may be necessary to confirm or exclude the diagnosis of myocardial injury or necrosis; Clinical correlation (symptoms, EKGs, imaging studies, and others) required; Repeat in 4-6 hours if clinically indicated. Equal or Higher than 0.121 ng/mL---Abnormal. Myocardial Injury or Necrosis Likely Biotin has been reported to cause a negative bias, interpret results relative to patient's use of biotin. Performing Organization Address [facility] [address]/[facility] Phone Number [facility] CLIA: [id number] [place] [address] COVID-19 (ID NOW RAPID TESTING) (02/15/2020 9:06 PM CLIENT ADMINISTRATOR) SARS-CoV-2 Rapid ID Not Detected Not Detected [facility] Specimen Swab - NASOPHARYNGEAL SWAB Narrative Performed At [place] NOW COVID-19 Assay is an isothermal nucleic [facility] acid amplification test intended for the qualitative detection of nucleic acid from SARS-CoV-2 viral RNA in nasopharyngeal ([employer]) specimens. It is used under Emergency Use Authorization (EUA) by FDA. The limit of detection (LOD) of the assay is 125 Genome Equivalents/mL. A positive result is indicative of the presence of SARS-CoV-2 RNA. Clinical correlation with patient history and other diagnostic information is necessary to determine patient infection status. A negative (Not Detected) result does not preclude SARS-CoV-2 infection. In patients with clinical symptoms and other tests that are consistent with SARS-CoV-2 infection, negative results should be treated as presumptive negative and a new specimen should be tested with alternative PCR molecular test. Invalid: Please collect a new specimen for repeat patient testing if clinically indicated. Performing Organization Address City/[facility] [address]/Zipcode Phone Number [facility] CLIA: [id number] [place] [address] Lipase Serum (02/15/2020 9:06 PM CLIENT ADMINISTRATOR) Pathologist Sig nature LIPASE 109 0 - 220 U/L [facility] Specimen Blood - VENOUS Performing Organization Address City/[facility] [address]/Zipcode Phone Number [facility] CLIA: [id number] [place] [address] [place] [address] Hepatic Function Panel (ALB, T.PRO, BILI T, BU/BC, ALT, AST, ALK PHOS) (02/15/2020 9:06 PM CLIENT ADMINISTRATOR) Pathologist Sig nature TOTAL BILI 0.8 0.1 - 1.1 mg/dL [facility] BILI UNCON 0.7 0.1 - 1.1 mg/dL [facility] BILI CONJ 0.0 0.0 - 0.3 mg/dL [facility] T PROTEIN 8.4 (H) 6.3 - 8.2 g/dL [facility] ALBUMIN 5.0 3.5 - 5.0 g/dL [facility] ALK PHOS 62 34 - 122 U/L [facility] ALTv 19 5 - 35 U/L [facility] AST(SGOT) 28 13 - 40 U/L [facility] Specimen Blood - VENOUS Performing Organization Address City/State/Zipcode Phone Number [facility] CLIA: [id number] [place] [address] Basic Metabolic Panel (NA, K, CL, CO2, GLUCOSE, BUN, CREATININE, CA) (02/15/2020 9:06 PM CLIENT ADMINISTRATOR) [facility] NA 138 135 - 145 mmol/L [facility] K 4.1 3.5 - 5.0 mmol/L [facility] CL 102 98 - 108 mmol/L [facility] CO2 TOTAL 27 23 - 31 mmol/L [facility] AGAP 9 2 - 16 [facility] BUN 9 7 - 23 mg/dL [facility] GLUCOSE 97 70 - 110 mg/dL [facility] CREATININE 0.66 0.50 - 1.04 [facility] LABORATORY CALCIUM 10.1 8.6 - 10.6 mg/dL [facility] eGFR Calculation 101.9 mL/min/1.73m2 [facility] (Non-) [facility] LABORATOR Y eGFR Calculation 123.5 mL/min/1.73m2 [facility] () [facility] Specimen Blood - VENOUS Narrative Performed At Association of Glomerular Filtration Rate (GFR) [facility] and Staging of Kidney Disease* + + +- + | GFR (mL/min/1.73 m2) | With Kidney Damage | Without Kidney Damage + + +- + | >90 | Stage one | Normal + + +- + | 60-89 | Stage two | Decreased GFR + + +- + | 30-59 | Stage three | Stage three + + +- + | 15-29 | Stage four | Stage four + + +- + | <15 (or dialysis) | Stage five | Stage five + + +- + *Each stage assumes the associated GFR level has been in effect for at least three months. Stages 1 to 5, with or without kidney disease, indicate chronic kidney disease. Notes: Determination of stages one and two (with eGFR >59mL/min/1.73 m2) requires estimation of kidney damage for at least three months as defined by structural or functional abnormalities of the kidney, manifested by either: Pathological abnormalities or Markers of kidney damage (including abnormalities in the composition of the blood or urine or abnormalities in imaging tests). Performing Organization Address City/State/Zipcode Phone Number [facility] CLIA: [id number] [place] [address] CBC with Differential (02/15/2020 9:06 PM CLIENT ADMINISTRATOR) Pathologist Sig nature WBC 5.78 4.30 - 11.10 [facility] 10*3/L [facility] RBC 4.86 3.93 - 5.25 [facility] 10*6/L [facility] HGB 14.2 11.6 - 15.0 [facility] g/dL [facility] HCT 41.8 35.7 - 45.2 % [facility] MCV 86.0 80.6 - 95.5 fL [facility] MCH 29.2 25.9 - 32.8 pg [facility] MCHC 34.0 31.6 - 35.1 [facility] g/dL [facility] RDW-SD 38.7 (L) 39.0 - 49.9 fL [facility] RDW-CV 12.4 12.0 - 15.5 % [facility] PLT 257 166 - 358 [facility] 10*3/L [facility] MPV 11.8 9.5 - 12.9 fL [facility] NRBC/100 WBC 0.0 0.0 - 10.0 /100 [facility] WBCs [facility] NRBC x10^3 <0.01 10*3/L [facility] GRAN MAT (NEUT) % 50.8 % [facility] IMM GRAN % 0.20 % [facility] LYMPH % 37.4 % [facility] MONO % 9.2 % [facility] EOS % 1.9 % [facility] BASO % 0.5 % [facility] GRAN MAT x10^3(ANC) 2.94 1.88 - 7.09 [facility] 10*3/uL [facility] IMM GRAN x10^3 <0.03 0.00 - 0.06 [facility] 10*3/uL [facility] LYMPH x10^3 2.16 1.32 - 3.29 [facility] 10*3/uL [facility] MONO x10^3 0.53 0.33 - 0.92 [facility] 10*3/uL [facility] EOS x10^3 0.11 0.03 - 0.39 [facility] 10*3/uL [facility] BASO x10^3 0.03 0.01 - 0.[address] Specimen Blood - VENOUS Performing Organization Address City/State/Zipcode Phone Number [facility] CLIA: [id number] [place] [address] documented in this encounter Visit Diagnoses Diagnosis Abdominal pain, unspecified abdominal lo cation - Primary Chest pain, unspecified type Vomiting, intractability of vomiting not specified, presence of nausea not specified, unspecified vomiting type documented in this encounter Administered Medications Medication Order MAR Action Action Date Dose Rate Site morpHINE injection 4 mg Given 02/15/2020 9:20 PM CLIENT ADMINISTRATOR 4 mg 4 mg, Slow IV Push, ONCE, 1 dose, 02/15/20 at 2215, STAT NaCl 0.9% (NS) bolus infusion New Bag 02/15/2020 9:16 PM CLIENT ADMINISTRATOR 1,000 mL 999 mL/hr 1,000 mL at 999 mL/hr, 1,000 mL, IV Infusion, ONCE, 1 dose, 02/15/20 at 2115, RAGHAVENDRA ondansetron (ZOFRAN (PF)) injection 4 mg Given 02/15/2020 9:16 PM CLIENT ADMINISTRATOR 4 mg 4 mg, Slow IV Push, ONCE, 1 dose, 02/15/20 at 2215, RAGHAVENDRA documented in this encounter Additional Health Concerns Infection Onset Date Last Indicated Resolved Time COVID-19 Rule Out 02/15/2020 02/15/2020 02/15/2020 9: 45 PM CLIENT ADMINISTRATOR documented as of this encounter
[2020-03-15] MEDS ORDERED: ONDANSETRON 4 MG/2 ML VIAL ONE (11:36)
[2020-03-15] MEDS ORDERED: KETOROLAC 30 MG/ML INJ ONE (11:36)
[2020-03-15] MEDS ORDERED: NA CHLORIDE 0.9% 1,000 ML ONE (11:36)
--- NOTE | 2020-03-15 11:50 | RAD REPORT ---
EXAM DESCRIPTION: CT - Head Brain Wo Cont - 03/15/2020 11:26 am CLINICAL HISTORY: Headache COMPARISON: 2018 TECHNIQUE: Computed axial tomography of the head was obtained. IV contrast was not requested. All CT scans are performed using dose optimization technique as appropriate and may include automated exposure control or mA/KV adjustment according to patient size. FINDINGS: An intracranial bleed is not seen . The ventricles are normal in caliber. No extra-axial fluid collection is noted. Fluid within the sinuses/ mastoids is not seen. IMPRESSION: No acute intracranial abnormality is seen. If patient's symptoms persist MRI of the bra in would be recommended.
[2020-03-15 12:10] LABS: Absolute Lymphocytes (CBC) 0.9 K/uL (0.7-4.9); Basophils % 0.7 % (0-1.3); Hematocrit 40.9 % (36.0-45.0); Lymphocytes % 16.8 % (15.3-44.8); MPV 10.9 fL (7.6-11.3); RBC Red Blood Cell Count 4.74 M/uL (3.86-4.86)
[2020-03-15] MEDS ORDERED: MORPHINE 4 MG/ML SYR ONE (12:36)
[2020-03-15 13:03] LABS: ALT/SGPT 20 U/L (12-78); AST/SGOT 17 U/L (15-37); Alkaline Phosphatase 53 U/L (45-117); BUN Blood Urea Nitrogen 12 mg/dL (7-18); Bicarbonate 32 mmol/L (21-32); Bilirubin Total 0.3 mg/dL (0.2-1.0); Glucose Level 83 mg/dL (74-106); Potassium 4.1 mmol/L (3.5-5.1); Protein, Total 7.3 g/dL (6.4-8.2); Sodium Level 143 mmol/L (136-145)
--- NOTE | 2020-03-15 13:17 | RAD REPORT ---
EXAM DESCRIPTION: Ha Single View03/15/2020 12:39 pm CLINICAL HISTORY: Cough COMPARISON: 2018 FINDINGS: Elevation of the left hemidiaphragm is unchanged. The lungs appear clear of acute infiltrate. The heart is normal size IMPRESSION: No acute abnormalities displayed
--- NOTE | 2020-03-15 13:29 | ER ---
Nurse's Notes [facility] Name: Veronica Valentin Age: 34 yrs Sex: Female : 1985 Arrival Date: 03/15/2020 Time: 10:02 Bed 19 Private MD: Diagnosis: Headache;Dermatitis, unspecified Presentation: 03/15 10:14 Chief complaint: Patient states: upper back pain between shoulder blades, headache, sv fever Tmax 99.5, body aches, rash x 2 days ago. Coronavirus screen: Client denies travel out of the [place] in the last 14 days. Client presents with at least one sign or symptom that may indicate coronavirus-19. Standard/surgical mask placed on the client. Provider contacted for isolation considerations. Ebola Screen: No symptoms or risks identified at this time. Risk Assessment: Do you want to hurt yourself or someone else? Patient reports no desire to harm self or others. Onset of symptoms was March 13, 2020. 10:14 Method Of Arrival: Ambulatory sv 10:14 Acuity: BREANNA 3 sv 10:16 Initial Sepsis Screen: Does the patient meet any 2 criteria? HR > 90 bpm. No. Patient's sv initial sepsis screen is negative. Does the patient have a suspected source of infection? No. Patient's initial sepsis screen is negative. Triage Assessment: 13:48 Headache History: The patient has had previous headaches and this one is similar to ll1 previous episodes. General: Appears in no apparent distress. Behavior is calm, cooperative, appropriate for age. Pain: Pain currently is 5 out of 10 on a pain scale. Pain began 2-3 days ago. Also complains of nausea. 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 - Social history:: Smoking status: Patient denies any tobacco usage or history of. - Family history:: not pertinent. Screenin:40 Fall Risk IV access (20 points). Total Solis Fall Scale indicates No Risk (0-24 pts). ll1 10:46 Abuse screen: Denies threats or abuse. Nutritional screening: No deficits noted. ll1 Tuberculosis screening: No symptoms or risk factors identified. Assessment: 10:40 General: Appears uncomfortable, Behavior is calm, cooperative, appropriate for age. ll1 Pain: Complains of pain in head Quality of pain is described as aching. 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 Full function Gait is steady, Speech is normal, Reports headache. Cardiovascular: No deficits noted. Respiratory: No deficits noted. GI: No deficits noted. Derm: Rash noted that is red, on chin Reports rash to chin area. No drainage. Musculoskeletal: Circulation, motion, and sensation intact. Capillary refill < 3 seconds, Reports body aches. Vital Signs: 10:16 BP 137 / 92; Pulse 102; Resp 16; Temp 98.4; Pulse Ox 100% ; Weight 54.43 kg; Height 5 sv ft. 7 in. (170.18 cm); 13:43 BP 100 / 68; Pulse 58; Resp 16; Pulse Ox 100% ; Pain 5/10; ll1 10:16 Body Mass Index 18.79 (54.43 kg, 170.18 cm) sv Mary Coma Score: 11:20 Eye Response: spontaneous(4). Verbal Response: oriented(5). Motor Response: obeys natasha commands(6). Total: 15. ED Course: 10:02 Patient arrived in ED. mr 10:15 Triage completed. sv 10:16 Arm band placed on. sv 10:20 Wilfredo Viramontes MD is Attending Physician. natasha 10:27 Emily El RN is Primary Nurse. ll1 10:27 Patient placed in an exam room, on a stretcher. ll1 10:30 Patient has correct armband on for positive identification. Bed in low position. Call ll1 light in reach. Side rails up X 1. Pulse ox on. NIBP on. 11:00 Inserted saline lock: 22 gauge in left antecubital area, using aseptic technique. Blood ll1 collected. 11:25 CT Head Brain wo Cont In Process Unspecified. EDMS 12:41 Chest Single View XRAY In Process Unspecified. EDMS 13:28 No provider procedures requiring assistance completed. ll1 13:44 IV discontinued, intact, bleeding controlled, No redness/swelling at site. Pressure ll1 dressing applied. Administered Medications: 12:00 Drug: NS 0.9% 1000 ml Route: IV; Rate: 1 bolus; Site: right antecubital; ll1 13:41 Follow up: Response: No adverse reaction; RASS: Alert and Calm (0); IV Status: ll1 Completed infusion; IV Intake: 400ml 12:00 Drug: Zofran (Ondansetron) 4 mg Route: IVP; Site: right antecubital; ll1 13:42 Follow up: Response: No adverse reaction; RASS: Alert and Calm (0) ll1 12:01 Drug: TORadol 30 mg Route: IVP; Site: right antecubital; ll1 13:42 Follow up: Response: No adverse reaction; RASS: Alert and Calm (0) ll1 12:46 Drug: morphine 4 mg Route: IVP; Site: left antecubital; ll1 13:42 Follow up: Response: No adverse reaction; RASS: Alert and Calm (0) ll1 13:41 Drug: Bactroban Ointment 2 % 1 application Route: Topical; Site: face; ll1 13:43 Follow up: Response: No adverse reaction; RASS: Alert and Calm (0) ll1 Intake: 13:41 IV: 400ml; Total: 400ml. ll1 Outcome: 13:28 Discharge ordered by . natasha 13:28 Discharged to home ambulatory. ll1 13:28 Condition: stable 13:28 Discharge instructions given to patient, Instructed on discharge instructions, follow up and referral plans. medication usage, Demonstrated understanding of instructions, follow-up care, medications, Prescriptions given X 3. 13:50 Patient left the ED. ll1 Addendum: 03/18/2020 09:37 Addendum: COVID-19 Result: Negative result given to RN to notify pt. Attempted to i w contact pt regarding negative COVID-19 swab results. Left voice mail. 10:09 Addendum: COVID-19 Result: Negative result given to RN to notify pt. Notified pt of i w negative COVID 19 swab results. Pt advised that even with a negative test result they should remain in isolation until symptom free for 3 days without medication. Pt also advised to return to the ED for worsening symptoms. Signatures: Dispatcher [employer] EDMS Doris Hernández, RN Wilfredo Arreola MD MD cha Rivera, Mary mr Williams, Irene, RN Emily Jara RN RN ll1
--- NOTE | 2020-03-15 13:29 | EDPHYS ---
Physician Documentation [facility] Name: Veronica Valentin Age: 34 yrs Sex: Female : 1985 Arrival Date: 03/15/2020 Time: 10:02 Bed 19 Private MD: ED Physician Wilfredo Viramontes HPI: 03/15 11:15 This 34 yrs old Female presents to ER via Ambulatory with complaints of natasha Headache, Back Pain, Rash. 11:15 The patient complains of pain to the forehead, right religion, right frontal area, right natasha temporal area and right side of forehead. The patient describes the headache as aching, constant. Onset: The symptoms/episode began/occurred 2 day(s) ago. Associated signs and symptoms: The patient has no apparent associated signs or symptoms. Severity of symptoms: At its worst the pain was moderate, in the emergency department the pain is unchanged. Headache History: The patient has had previous headaches and this one is similar to previous episodes. The symptoms are alleviated by nothing. the symptoms are aggravated by nothing. The patient has experienced similar episodes in the past, several times. 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 - Social history:: Smoking status: Patient denies any tobacco usage or history of. - Family history:: not pertinent. ROS: 11:15 Constitutional: Negative for fever, chills, and weight loss, Eyes: Negative for injury, natasha pain, redness, and discharge, ENT: Negative for injury, pain, and discharge, Neck: Negative for injury, pain, and swelling, Cardiovascular: Negative for chest pain, palpitations, and edema, Abdomen/GI: Negative for abdominal pain, nausea, vomiting, diarrhea, and constipation, Back: Negative for injury and pain, : Negative for injury, bleeding, discharge, and swelling, MS/Extremity: Negative for injury and deformity, Skin: Negative for injury, rash, and discoloration, Psych: Negative for depression, anxiety, suicide ideation, homicidal ideation, and hallucinations, Allergy/Immunology: Negative for hives, rash, and allergies, Endocrine: Negative for neck swelling, polydipsia, polyuria, polyphagia, and marked weight changes, Hematologic/Lymphatic: Negative for swollen nodes, abnormal bleeding, and unusual bruising. 11:15 Respiratory: Positive for cough. 11:15 Skin: Positive for lesions, rash, of the right eye, chin, right jaw and left jaw. 11:15 Neuro: Positive for headache. Exam: 11:15 Constitutional: This is a well developed, well nourished patient who is awake, alert, natasha and in no acute distress. Head/Face: Normocephalic, atraumatic. Eyes: Pupils equal round and reactive to light, extra-ocular motions intact. Lids and lashes normal. Conjunctiva and sclera are non-icteric and not injected. Cornea within normal limits. Periorbital areas with no swelling, redness, or edema. ENT: Nares patent. No nasal discharge, no septal abnormalities noted. Tympanic membranes are normal and external auditory canals are clear. Oropharynx with no redness, swelling, or masses, exudates, or evidence of obstruction, uvula midline. Mucous membranes moist. Chest/axilla: Normal chest wall appearance and motion. Nontender with no deformity. No lesions are appreciated. Cardiovascular: Regular rate and rhythm with a normal S1 and S2. No gallops, murmurs, or rubs. Normal PMI, no JVD. No pulse deficits. Respiratory: Lungs have equal breath sounds bilaterally, clear to auscultation and percussion. No rales, rhonchi or wheezes noted. No increased work of breathing, no retractions or nasal flaring. Abdomen/GI: Soft, non-tender, with normal bowel sounds. No distension or tympany. No guarding or rebound. No evidence of tenderness throughout. Back: No spinal tenderness. No costovertebral tenderness. Full range of motion. Female : Normal external genitalia. MS/ Extremity: Pulses equal, no cyanosis. Neurovascular intact. Full, normal range of motion. Neuro: Awake and alert, GCS 15, oriented to person, place, time, and situation. Cranial nerves II-XII grossly intact. Motor strength 5/5 in all extremities. Sensory grossly intact. Cerebellar exam normal. Normal gait. 11:15 Neck: ROM/movement: is normal, no acute changes, Meningeal signs: are not present, Kernig's sign is negative, Brudzinski's sign is negative. 11:15 Respiratory: the patient does not display signs of respiratory distress, Breath sounds: are clear throughout, Respiratory rate: 16 Vital Signs: 10:16 BP 137 / 92; Pulse 102; Resp 16; Temp 98.4; Pulse Ox 100% ; Weight 54.43 kg; Height 5 sv ft. 7 in. (170.18 cm); 13:43 BP 100 / 68; Pulse 58; Resp 16; Pulse Ox 100% ; Pain 5/10; ll1 10:16 Body Mass Index 18.79 (54.43 kg, 170.18 cm) sv Mary Coma Score: 11:20 Eye Response: spontaneous(4). Verbal Response: oriented(5). Motor Response: obeys [facility] commands(6). Total: 15. MDM: 10:20 Patient medically screened. [facility] 11:20 Differential diagnosis: cluster headache, herpes zoster, meningitis, sinusitis, natasha trigeminal neuralgia, vasomotor headache. Data reviewed: vital signs, nurses notes, lab test result(s), radiologic studies. Data interpreted: awake overnight monitor: rate is 102 beats/min, rhythm is regular, Pulse oximetry: on room air is 100 %. Test interpretation: by ED physician or midlevel provider: plain radiologic studies. Counseling: I had a detailed discussion with the patient and/or guardian regarding: the historical points, exam findings, and any diagnostic results supporting the discharge/admit diagnosis, lab results, radiology results. 03/15 11:15 Order name: CBC with Diff; Complete Time: 12:20 [facility] 03/15 11:15 Order name: Comprehensive Metabolic Panel; Complete Time: 13:24 [facility] 03/15 11:15 Order name: Blood Culture Adult (2) [facility] 03/15 11:15 Order name: Influenza Screen (a \T\ B); Complete Time: 13:24 [facility] 03/15 11:15 Order name: Strep; Complete Time: 13:24 [facility] 03/15 11:15 Order name: COVID-19 [facility] 03/15 11:15 Order name: Chest Single View XRAY; Complete Time: 13:24 [facility] 03/15 11:15 Order name: Urine Culture [facility] 03/15 11:15 Order name: CT Head Brain wo Cont; Complete Time: 12:20 [facility] 03/15 11:28 Order name: Urine Dipstick--Ancillary (enter results) 03/15 12:31 Order name: Throat Culture [facility] 03/15 11:15 Order name: Urine Dipstick-Ancillary (obtain specimen); Complete Time: 11:25 [facility] 03/15 12:20 Order name: Labs - recollect needed; Complete Time: 12:46 bd Administered Medications: 12:00 Drug: NS 0.9% 1000 ml Route: IV; Rate: 1 bolus; Site: right antecubital; ll1 13:41 Follow up: Response: No adverse reaction; RASS: Alert and Calm (0); IV Status: ll1 Completed infusion; IV Intake: 400ml 12:00 Drug: Zofran (Ondansetron) 4 mg Route: IVP; Site: right antecubital; ll1 13:42 Follow up: Response: No adverse reaction; RASS: Alert and Calm (0) ll1 12:01 Drug: TORadol 30 mg Route: IVP; Site: right antecubital; ll1 13:42 Follow up: Response: No adverse reaction; RASS: Alert and Calm (0) ll1 12:46 Drug: morphine 4 mg Route: IVP; Site: left antecubital; ll1 13:42 Follow up: Response: No adverse reaction; RASS: Alert and Calm (0) ll1 13:41 Drug: Bactroban Ointment 2 % 1 application Route: Topical; Site: face; ll1 13:43 Follow up: Response: No adverse reaction; RASS: Alert and Calm (0) ll1 Disposition: 03/15/20 13:28 Discharged to Home. Impression: Headache, Dermatitis, unspecified. - Condition is Stable. - Discharge Instructions: General Headache Without Cause, Rash, Rash, [id number], General Headache Without Cause, Pjak-[id number], Impetigo, Adult. - Prescriptions for Bactroban 2 % Topical Ointment - Apply to affected area 1 application by TOPICAL route every 12 hours; 15 gram. Zofran 4 mg Oral Tablet - take 1 tablet by ORAL route every 12 hours As needed; 20 tablet. Bactrim DS 800- 160 mg Oral Tablet - take 1 tablet by ORAL route every 12 hours for 10 days; 20 tablet. - Medication Reconciliation Form, Thank You Letter, Antibiotic Education, Prescription Opioid Use, School release form, Work release form form. - Follow up: Private Physician; When: 2 - 3 days; Reason: Recheck today's complaints, Continuance of care, Re-evaluation by your physician. - Problem is new. - Symptoms have improved. Signatures: Dispatcher [employer] EDMS Shirin Villegas Stephanie, RN RN Wilfredo Jones MD MD cha Lewis, Lynsay, RN RN ll1 Corrections: (The following items were deleted from the chart) 13:50 13:28 03/15/2020 13:28 Discharged to Home. Impression: Headache; Dermatitis, ll1 unspecified. Condition is Stable. Forms are Medication Reconciliation Form, Thank You Letter, Antibiotic Education, Prescription Opioid Use. Follow up: Private Physician; When: 2 - 3 days; Reason: Recheck today's complaints, Continuance of care, Re-evaluation by your physician. Problem is new. Symptoms have improved. natasha
[2020-03-15 13:33] LABS: Urine Blood NEGATIVE (NEG); Urine Glucose NEGATIVE (NEG); Urine Protein NEGATIVE (NEG); Urine pH 6.5 (5.0-7.0)
[2020-03-15] MEDS ORDERED: MUPIROCIN 2% OINT 22GM TUBE TOP ONE (13:53)
[2020-03-15 15:20] VITALS: BP 100/68; O2SAT 100
[2020-03-15 15:22] VITALS: TEMP 98.4
== END 2020-03-15 13:50 | disposition home or self-care (01) ==
LOC: ER 09:59
DX: L30.9 Dermatitis, unspecified (principal); Z20.828 Contact with and (suspected) exposure to other viral communicable diseases; Z88.8 Allergy status to other drugs, medicaments and biological substances; Z91.013 Allergy to seafood; Z91.048 Other nonmedicinal substance allergy status
CPT/HCPCS: 36415; 70450; 71045; 80053; 81003; 85025; 87040; 87070; 87081; 87086; 87088; 87804; 99284; J2405; J7030; U0002

== ENCOUNTER 2021-03-22 18:50 | Emergency (ER) | payer SELFPAY ==
--- OUTSIDE RECORDS SUMMARY | 2021-03-22 18:54 | XMS REPORT | Continuity of Care Document ---
:1985 Author Organization [facility] t Address [address] [place] [address] Care Team Providers Name Role Phone PCP, DOES NOT HAVE A Primary Care Physician Unavailable ANENE Attending Clinician Unavailable Leonor Amaro Attending Clinician Spencer CARLOS Attending Clinician Unavailable Spencer Carlos MD Attending Clinician Lobo DOCKERY Attending Clinician Spencer CARLOS Admitting Clinician Unavailable Payers Payer Name Policy Type Policy Number Effective Date Expiration Date S [facility] [place] S[place] PENDING 2019 PENDING 00:00:00 Problems Condition Condition Condition Status Onset Resolution Last Treating Co mments Source Name Details Category Date Date Treatment Clinician Date SBO (small SBO (small Disease Active U nivers bowel bowel 4-08 ity [place] 00 Medical Branch Small Small Disease Active Univers bowel bowel 4-07 ity of obstructio [place]io [place] Chronic Chronic Disease Active Overview: Univ ers abdominal abdominal 3-22 Added ity of pain pain 00:00: automatic [place] 00 ally from Medical request Branch for surgery [id number] Celiac Celiac Disease Active Univers artery artery 3-12 ity of stenosis stenosis 00:00: [place] 00 Medical Branch Celiac Celiac Disease Active Univers artery artery 3-12 ity of stenosis stenosis 00:00: [place] 00 Medical Branch Abdominal Abdominal Disease Active Overview: Univers pain, pain, 2-06 Added ity of epigastric epigastric 00:00: automatic ally from Medical request Branch for surgery [id number] Other Other Disease Active Overview: Dinesher s constipati constipati 2- Added it y of on on 00:00: automatic ally from Medical request Branch for surgery [id number] Family Family Disease Active Overview: [place] history of history of 2 Added it y of colon colon 00:00: automatic [place] cancer cancer 00 ally from Medical request Branch for surgery [id number] Rectal Rectal Disease Active Overview: [place] bleeding bleeding 2 Added ity of 00:00: automatic ally from Medical request Branch for surgery [id number] Abdominal Abdominal Disease Active 2017-04 Uni vers pain pain - ity of 00:00: Medical Branch Acute Acute Disease Active Univers pyelonephr pyelonephr 04-27 it y of itis itis 00:00: [place] without without 00 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 Allergies, Adverse Reactions, Alerts Allergy Allergy Status Severity Reaction(s) Onset Inactive Treating Comm ents Source Name Type Date Date Clinician SHELLFIS DRUG Active Anaphylaxis 2017-04 Uni vers H INGREDI 04-16 ity of DERIVED 00:00: [place] 00 Medical [place] Shellfis Propensi Active Anaphylaxis 2017-04 U nivers h ty to 04-16 ity of Derived adverse 00:00: [place] reaction 00 Medical [facility] PHENERGA DRUG Active High Hallucinates 2017-04 Un saqib N PLAIN 0-17 ity of 00:00: [place] 00 Medical [place] Phenerga Propensi Active Hallucinatio 2017-04 Univers n Plain ty to ns 0-17 ity of adverse 00:00: [place] reaction 00 Medical s Branch DIPHENHY DRUG Active Anaphylaxis Uni vers DRAMINE INGREDI 05-12 ity of HCL 00:00: [place] 00 Medical [place] Diphenhy Propensi Active Anaphylaxis U nivers dramine ty to 05-12 ity of Hcl adverse 00:00: [place] reaction 00 Medical [facility] IODINE Drug Active Hives Univers AND Class 1-13 ity of IODIDE 00:00: [place] CONTAINI 00 Medical Branch PRODUCTS Iodine Propensi Active Hives Univers And ty to 1-13 ity of Iodide adverse 00:00: [place] Containi reaction 00 Medica l ng s to Branch Products drug Social History Social Habit Start Date Stop Date Quantity Comments Source Sex Assigned At Universit y of [facility] Exposure to Not sure [facility] SARS-CoV-2 (event) [facility] Cigarette 2020-02-15 2020-02-15 University of pack-years 00:00:00 00:00:00 [facility] Alcohol intake 2020-02-15 2020-02-15 Current University of 00:00:00 00:00:00 non-drinker of [facility] alcohol [place] (finding) Cigarettes smoked 2020-02-15 2020-02-15 Univers ity of current (pack per 00:00:00 00:00:00 [facility] ) - Reported Branch Tobacco use and 2020-02-15 2020-02-15 Current user Univers ity of exposure 00:00:00 00:00:00 [facility] Tobacco Comment 2018-02-27 2018-02-27 vape use daily Unive rsity of 00:00:00 00:00:00 [facility] Alcohol Comment 2018-02-27 2018-02-27 quit 5 yrs ago, Univ ersity of 00:00:00 00:00:00 was using on [facility] Branch History of tobacco 2010-02-27 2015-02-27 Cigarette Smoker University of use 00:00:00 00:00:00 [facility] Smoking Status Start Date Stop Date Source Former smoker 2020-02-15 00:00:00 2020-02-15 00:00:00 Universi ty of [facility] Medications Ordered Filled Start Stop Current Ordering Indication Dosage Frequency Signature Comments Components Source Medication Medication Date Date Medication? Clinician (SIG) Name Name morpHINE 2019-04- No 4mg 4 mg, Slow Un saqib injection 4 04-17 IV Push, ity of mg 04:15: 03:20 ONCE, 1 [place] 00 :00 dose, Mon Medical 02/15/20 at Branch 2215, STAT ondansetron 2019-04 No 4mg 4 mg, Slow Univers (ZOFRAN 1-03 11-03 IV Push, ity of (PF)) 04:15: 03:16 ONCE, 1 [place] injection 4 00 :00 dose, Mon Med ical mg 02/15/20 at Branch 2215, RAGHAVENDRA NaCl 0.9% 2019-04- No 1000mL at 999 Uni vers (NS) bolus 1-03 11-03 mL/hr, ity of infusion 03:15: 06:08 1,000 mL, [place] as 1,000 mL 00 :00 IV Medical Infusion, Branch ONCE, 1 dose, 02/15/20 at 2115, RAGHAVENDRA ondansetron 2019-04 Yes [id number] 4mg Take 1 Univers 4 mg 1-03 tablet by ity of disintegrat 00:00: mouth [place] ing tablet 00 every 12 Medic al (twelve) Branch hours as needed for Nausea and Vomiting (N/V). dicyclomine 2019-04 Yes [id number] 10mg Take 1 Univers (BENTYL) 10 1-03 capsule by it y of mg capsule 00:00: [place] (four) Medical times Branch daily as needed for Abdominal pain. traMADol 2019- No 50mg 50 mg, Univer s (ULTRAM) 2-16 02-15 Oral, ONCE ity of tablet 50 00:15: 23:13 NOW, 1 [place] mg 00 :00 dose, [facility] Medical 05/30/19 at Branch 1815, RAGHAVENDRA ketorolac 2019- No 30mg 30 mg, Unive rs (TORADOL) 2-15 02-15 Intramuscu ity of injection 23:45: 22:54 lar, ONCE, [place] 30 mg 00 :00 1 dose, Medical Sat [place] 05/30/19 at 1745, RAGHAVENDRA
Fa culty member approving Restricted medication : LEIGHTON CARLOS traMADol 2019- Yes [id number] 50mg Take 1 Un saqib (ULTRAM) 50 2-15 tablet by ity of mg tablet 00:00: mouth [place] 00 every 6 Medical (six) Branch hours as needed for Pain (scale 7-10). ondansetron Yes [id number] 4mg Take 1 Univers 4 mg 2-15 tablet by ity of disintegrat 00:00: mouth [place] ing tablet 00 every 8 Medica l (eight) Branch hours as needed for Nausea and Vomiting (N/V). traMADol Yes [id number] 50mg Take 1 Un saqib (ULTRAM) 50 2-15 tablet by ity of mg tablet 00:00: mouth [place] 00 every 6 Medical (six) Branch hours as needed for Pain (scale 7-10). ondansetron Yes [id number] 4mg Take 1 Univers 4 mg 2-15 tablet by ity of disintegrat 00:00: mouth [place] ing tablet 00 every 8 Medica l (eight) Branch hours as needed for Nausea and Vomiting (N/V). cyclobenzap Yes [id number] 10mg Take 1 Univers rine 10 mg 7-27 tablet by ity of tablet 00:00: mouth 2 [place] 00 (two) Medical times Branch daily. sennosides Yes [id number] 8.6mg Take 1 Univers (SENNA) 8.6 7-27 tablet by ity of mg tablet 00:00: mouth [place] 00 daily. Medical Branch cyclobenzap Yes [id number] 10mg Take 1 Univers rine 10 mg 7-27 tablet by ity of tablet 00:00: mouth 2 [place] 00 (two) Medical times Branch daily. sennosides Yes [id number] 8.6mg Take 1 Univers (SENNA) 8.6 7-27 tablet by ity of mg tablet 00:00: mouth [place] 00 daily. Medical Branch cyclobenzap Yes [id number] 10mg Take 1 Univers rine 10 mg 7-27 tablet by ity of tablet 00:00: mouth 2 [place] 00 (two) Medical times Branch daily. sennosides Yes [id number] 8.6mg Take 1 Univers (SENNA) 8.6 7-27 tablet by ity of mg tablet 00:00: mouth [place] 00 daily. Medical Branch cyclobenzap Yes [id number] 10mg Take 1 Univers rine 10 mg 7-27 tablet by ity of tablet 00:00: mouth 2 [place] 00 (two) Medical times Branch daily. sennosides Yes [id number] 8.6mg Take 1 Univers (SENNA) 8.6 7-27 tablet by ity of mg tablet 00:00: mouth [place] 00 daily. Medical Branch cyclobenzap Yes [id number] 10mg Take 1 Univers rine 10 mg 7-27 tablet by ity of tablet 00:00: mouth 2 [place] 00 (two) Medical times Branch daily. sennosides Yes [id number] 8.6mg Take 1 Univers (SENNA) 8.6 7-27 tablet by ity of mg tablet 00:00: mouth [place] 00 daily. Medical Branch cyclobenzap 2019- No [id number] 10mg Take 1 Univers rine 10 mg 6-13 07-22 tablet by ity of tablet 00:00: 00:00 mouth 2 [place] 00 :00 (two) Medical times Branch daily. cyclobenzap 2019- No [id number] 10mg Take 1 Univers rine 10 mg 6-13 07-22 tablet by ity of tablet 00:00: 00:00 mouth 2 [place] 00 :00 (two) Medical times Branch daily. polyethylen Yes Take by Un saqib e glycol 5-21 mouth. ity of 3350 17:16: [place] (MIRALAX 14 Medical ORAL) Branch IBUPROFEN Yes Take by Univ ers ORAL 5-21 mouth. ity of 17:16: [address] Branch inulin Yes Take by Univers (FIBER 5-21 mouth. ity of GUMMIES 17:16: [place] ORAL) Medical Branch polyethylen Yes Take by Un saqib e glycol 5-21 mouth. ity of 3350 17:16: [place] (MIRALAX 14 Medical ORAL) Branch IBUPROFEN Yes Take by Univ ers ORAL 5-21 mouth. ity of 17:16: [address] Branch inulin Yes Take by Univers (FIBER 5-21 mouth. ity of GUMMIES 17:16: [place] ORAL) Medical Branch polyethylen Yes Take by Un saqib e glycol 5-21 mouth. ity of 3350 17:16: [place] (MIRALAX 14 Medical ORAL) Branch IBUPROFEN Yes Take by Univ ers ORAL 5-21 mouth. ity of 17:16: [address] Branch inulin Yes Take by Univers (FIBER 5-21 mouth. ity of GUMMIES 17:16: [place] ORAL) Medical Branch polyethylen Yes Take by Un saqib e glycol 5-21 mouth. ity of 3350 17:16: [place] (MIRALAX 14 Medical ORAL) Branch IBUPROFEN Yes Take by Univ ers ORAL 5-21 mouth. ity of 17:16: [place] 14 Medical Branch inulin Yes Take by Univers (FIBER 5-21 mouth. ity of GUMMIES 17:16: [place] ORAL) 14 Medical Branch polyethylen Yes Take by Un saqib e glycol 5-21 mouth. ity of 3350 17:16: [place] (MIRALAX 14 Medical ORAL) Branch IBUPROFEN Yes Take by Univ ers ORAL 5-21 mouth. ity of 17:16: [place] 14 Medical Branch inulin Yes Take by Univers (FIBER 5-21 mouth. ity of GUMMIES 17:16: [place] ORAL) 14 Medical Branch omeprazole Yes [id number] 40mg Take 1 U nivers 40 mg 4-18 capsule by ity of capsule 00:00: mouth [place] 00 daily. Medical Branch omeprazole Yes [id number] 40mg Take 1 U nivers 40 mg 4-18 capsule by ity of capsule 00:00: mouth [place] 00 daily. Medical Branch omeprazole Yes [id number] 40mg Take 1 U nivers 40 mg 4-18 capsule by ity of capsule 00:00: mouth [place] 00 daily. Medical Branch omeprazole Yes [id number] 40mg Take 1 U nivers 40 mg 4-18 capsule by ity of capsule 00:00: mouth [place] 00 daily. Medical Branch omeprazole Yes [id number] 40mg Take 1 U nivers 40 mg 4-18 capsule by ity of capsule 00:00: mouth [place] 00 daily. Medical Branch sennosides 2019- No [id number] 8.6mg Take 1 Univers (SENNA) 8.6 3-22 07-22 tablet by it y of mg tablet 00:00: 00:00 mouth [place] 00 :00 daily. Medical Branch sennosides 2019- No [id number] 8.6mg Take 1 Univers (SENNA) 8.6 3-22 07-22 tablet by it y of mg tablet 00:00: 00:00 mouth [place] 00 :00 daily. Medical Branch Vital Signs Vital Name Observation Time Observation Value Comments Source Systolic blood 2020-02-16 07:00:00 111 mm[Hg] Univer sity of pressure [place] [facility] Diastolic blood 2020-02-16 07:00:00 82 mm[Hg] Unive rsity of pressure [place] [facility] Heart rate 2020-02-16 07:00:00 60 /min Universi ty of [place] [facility] Body temperature 2020-02-16 07:00:00 36.56 Zamzam Univ ersity of [place] [facility] Respiratory rate 2020-02-16 07:00:00 13 /min Univ ersity of [place] [facility] Oxygen saturation in 2020-02-16 07:00:00 100 /min University of Arterial blood by [facility] Pulse oximetry Branch Body weight 2020-02-16 02:59:00 52.164 kg Universi ty of [place] [facility] BMI 2020-02-16 02:59:00 18.01 kg/m2 Universi ty of [place] [facility] Systolic blood 2020-02-16 07:00:00 111 mm[Hg] Univer sity of pressure [place] [facility] Diastolic blood 2020-02-16 07:00:00 82 mm[Hg] Unive rsity of pressure [place] [facility] Heart rate 2020-02-16 07:00:00 60 /min Universi ty of [place] [facility] Body temperature 2020-02-16 07:00:00 36.56 Zamzam Univ ersity of [place] [facility] Respiratory rate 2020-02-16 07:00:00 13 /min Univ ersity of [place] [facility] Oxygen saturation in 2020-02-16 07:00:00 100 /min University of Arterial blood by [facility] Pulse oximetry Branch Body weight 2020-02-16 02:59:00 52.164 kg Universi ty of [place] [facility] BMI 2020-02-16 02:59:00 18.01 kg/m2 Universi ty of [place] [facility] Systolic blood 2019-05-30 23:31:55 110 mm[Hg] Univer sity of pressure [place] [facility] Diastolic blood 2019-05-30 23:31:55 73 mm[Hg] Unive rsity of pressure [place] [facility] Heart rate 2019-05-30 23:31:55 64 /min Universi ty of [place] [facility] Body temperature 2019-05-30 23:31:55 36.94 Zamzam Univ ersity of [place] [facility] Respiratory rate 2019-05-30 23:31:55 16 /min Univ ersity of [place] [facility] Oxygen saturation in 2019-05-30 23:31:55 98 /min University of Arterial blood by [facility] elder Pulse oximetry Branch Body weight 2019-05-30 22:23:00 52.164 kg Universi ty of [place] [facility] BMI 2019-05-30 22:23:00 18.01 kg/m2 Universi ty of [place] [facility] Systolic blood 2019-05-30 23:31:55 110 mm[Hg] Univer sity of pressure [place] [facility] Diastolic blood 2019-05-30 23:31:55 73 mm[Hg] Unive rsity of pressure [place] [facility] Heart rate 2019-05-30 23:31:55 64 /min Universi ty of [place] [facility] Body temperature 2019-05-30 23:31:55 36.94 Zamzam Univ ersity of [place] [facility] Respiratory rate 2019-05-30 23:31:55 16 /min Univ ersity of [place] [facility] Oxygen saturation in 2019-05-30 23:31:55 98 /min University of Arterial blood by [facility] Pulse oximetry Branch Body weight 2019-05-30 22:23:00 52.164 kg Universi ty of [place] [facility] BMI 2019-05-30 22:23:00 18.01 kg/m2 Universi ty of [place] [facility] Systolic blood 2018-11-03 15:02:00 132 mm[Hg] Univer sity of pressure [place] [facility] Diastolic blood 2018-11-03 15:02:00 84 mm[Hg] Unive rsity of pressure [place] [facility] Heart rate 2018-11-03 15:02:00 80 /min Universi ty of [place] [facility] Body height 2018-11-03 15:02:00 170.2 cm Universi ty of [place] [facility] Body weight 2018-11-03 15:02:00 59.194 kg Universi ty of [place] [facility] BMI 2018-11-03 15:02:00 20.44 kg/m2 Universi ty of [place] [facility] Oxygen saturation in 2018-11-03 15:02:00 100 /min University of Arterial blood by [facility] Pulse oximetry Branch Systolic blood 2018-11-03 15:02:00 132 mm[Hg] Univer sity of pressure [place] [facility] Diastolic blood 2018-11-03 15:02:00 84 mm[Hg] Unive rsity of pressure [place] [facility] Heart rate 2018-11-03 15:02:00 80 /min [facility] Body height 2018-11-03 15:02:00 170.2 cm [facility] Body weight 2018-11-03 15:02:00 59.194 kg [facility] BMI 2018-11-03 15:02:00 20.44 kg/m2 [facility] Oxygen saturation in 2018-11-03 15:02:00 100 /min [facility] blood by [facility] Pulse oximetry Branch Procedures Procedure Date / Time Performed Performing Clinician Rambo raymundo TROPONIN I 2020-02-16 07:06:00 Jeffry Sanches [facility] CT ABDOMEN PELVIS WO 2020-02-16 03:27:17 Jeffry Sanches [facility] CONTRAST [facility] URINALYSIS 2020-02-16 03:15:00 Jeffry Sanches [facility] LIPASE 2020-02-16 03:06:00 Jeffry Sanches [facility] TROPONIN I 2020-02-16 03:06:00 Jeffry Sanches [facility] HEPATIC FUNCTION PANEL 2020-02-16 03:06:00 Jeffry Sanches [facility] ([id number]) Medical Branch (ALB,T.PRO,BILI T,BU/BC,ALT,AST,ALK PHOS) BASIC METABOLIC PANEL 2020-02-16 03:06:00 Jeffry Sanches [facility] (NA, K, CL, CO2, Medical Branch GLUCOSE, BUN, CREATININE, CA) CBC WITH DIFF 2020-02-16 03:06:00 Jeffry Sanches [facility] COVID-19 (ID NOW RAPID 2020-02-16 03:06:00 Myron Jeffry B [facility] TESTING) Medical Branch NOTICE OF PRIVACY 2020-02-16 02:52:04 Doctor Unassigned, No [facility] PRACTICES Name Medical Branch CONSENT/REFUSAL FOR 2020-02-16 02:51:49 Doctor Unassigned, No [facility] DIAGNOSIS AND Name Medical Branch TREATMENT URINALYSIS 2019-05-30 22:53:00 Leighton Carlos [facility] CT ABDOMEN PELVIS WO 2019-05-30 22:46:58 Leighton Carlos ity [facility] CONSENT/REFUSAL FOR 2019-05-30 22:19:28 Doctor Unassigned, No Un [facility] DIAGNOSIS AND Name [facility] TREATMENT Encounters Start End Encounter Admission Attending Care Care Encounter Source Date/Time Date/Time Type Type Clinicians Facility Department ID 2021-02-11 Emergency [facility] [id number] Univers 02:36:17 ity [facility] 2020-04-26 2020-04-26 Outpatient Savanna MOSERDIMA, [facility] [id number] Univers 14:00:00 14:00:00 CANDACE ity [facility] 2020-04-26 2020-04-26 Outpatient [facility] [id number] Univers 13:55:00 13:55:00 [id number] [facility] 2020-02-15 2020-02-16 Emergency Kilmichael, [facility] [id number] 20:57:00 01:48:00 Jeffry [place] [id number] [place] [address] [place] [address] [id number] [facility] 2020-02-15 2020-02-16 Emergency Myron, [facility] [id number] Univers 20:57:00 01:48:00 Jeffry [place] [id number] i ty of [place] 4.[address] [place] [id number] 2019-05-30 2019-05-30 Emergency X TERRANCE, [facility] ERT [id number] Univers 16:24:26 17:34:00 LEIGHTON denice [facility] 2019-05-30 2019-05-30 Emergency Terrance, [facility] [id number] Univers 16:24:26 17:34:00 Leighton [facility] [id number] it y of [place] 4.2.7.2.[address] [place] [id number] ([facility]) 2019-05-30 2019-05-30 Emergency Terrance, [facility] [id number] 16:24:26 17:34:00 Leighton [facility] [id number] [facility] 4.2.7.2.686 [facility] [phone] [address] ([facility]) 2019-03-26 2019-03-26 Patient Lobo, BON [id number] Univers 00:00:00 00:00:00 Secure Msg Car JOHN[place] [id number] ity of IALTY 4.2.7.2.686 [facility] [place] [phone] [facility] AND [facility] Branch [facility] 2019-03-26 2019-03-26 Patient Lobo, [facility] [id number] 00:00:00 00:00:00 Secure [facility] Car JOHNPEC [id number] IALTY 4.2.7.2.686 [place] [phone] AND [place] [address] DIABETES CLIN[facility] 2018-11-03 2018-11-03 Office [facility] [id number] [facility] 09:48:32 17:36:28 Visit Car [facility] [id number] ity of IALTY 4.2.7.2.686 [facility] [place] [id number] [facility] AND [address] [place] [facility] 2018-11-03 2018-11-03 Office [facility] [id number] 09:48:32 17:36:28 Visit [facility] [id number] IALTY 4.2.7.2.[address] [phone] AND [place] [address] DIABETES CLIN[facility] Results Test Description Test Time Test Comments Results Result Comments Source TROPONIN I 2020-02-16 07:38:00 Test Item Value Reference Range Interpretation Comme nts TROPONIN I (test code = <0.012 See_Comment [Au tomated message] The [id number]) system which ge nerated this result tra nsmitted reference range : <=0.034 ng/mL. The refe rence range was not u sed to interpret this result as normal/abnormal . ERNESTO (test code = ERNESTO) Equal or Less than 0.034 ng/ml---Normal ?Note: Cardiac troponin begins to rise 3-4 hours after the onset of ischemia. Repeat in 4-6 hours if the sample was drawn within 3-4 hours of the onset of the symptom and found normal. Between 0.035 and 0.120 ng/mL--- Borderline. Questionable myocardial injury or necrosis ? ?Note: Serial measurement may be necessary to confirm or exclude the diagnosis of myocardial injury or necrosis; Clinical correlation (symptoms, EKGs, imaging studies, and others) required; Repeat in 4-6 hours if clinically indicated. ? Equal or Higher than 0.121 ng/mL---Abnormal. Myocardial Injury or Necrosis Likely ? Biotin has been reported to cause a negative bias, interpret results relative to patient's use of biotin. ? Lab Interpretation (test Normal code = 18337-9) [id number] 04:38:00 Test Item Value Reference Range Interpretation Comments TROPONIN I (test <0.012 See_Comment [Automated code = [id number]) message] The system which generated this result transmitted reference range : <=0.034 ng/mL. The reference range was not used to interpr et this result as normal/abnormal . ERNESTO (test code = Equal or Less than ERNESTO) 0.034 ng/ml---Normal ?Note: Cardiac troponin begins to rise 3-4 hours after the onset of ischemia. Repeat in 4-6 hours if the sample was drawn within 3-4 hours of the onset of the symptom and found normal. Between 0.035 and 0.120 ng/mL--- Borderline. Questionable myocardial injury or necrosis ? ?Note: Serial measurement may be necessary to confirm or exclude the diagnosis of myocardial injury or necrosis; Clinical correlation (symptoms, EKGs, imaging studies, and others) required; Repeat in 4-6 hours if clinically indicated. ? Equal or Higher than 0.121 ng/mL---Abnormal. Myocardial Injury or Necrosis Likely ? Biotin has been reported to cause a negative bias, interpret results relative to patient's use of biotin. ? Lab Interpretation Normal (test code = 58539-8) [facility] [id number] 04:30:09 1. ?Punctate nonobstructive bilateral renal calculi. 2. ?Mild hepatomegaly. Status post cholecystectomy and hysterectomy. Preliminary Report Dictated by Resident: Ramonita Guzman ?MD. Reynaldo, have reviewed this study and agree with theabove report. EXAM: CT ABDOMEN AND PELVIS WITHOUT C ONTRAST HISTORY: 34-year-old female complaints of nausea, vomiting and diarrhea forthe past 3 days. COMPARISON: CT abdomen-pelvis dated 05/30/2019. DOSE: 191 mGy-cm. TECHNIQUE AND FINDINGS: Contiguous axial imaging from the level of the lungbases through the pubic symphysis was performed without the int ravenousadministration of contrast. Coronal and sagittal reconstructions wereobtained. ?Auto mA and/or iterative reconstruction were used to reduceradiation dose. FINDINGS: LOWER THORAX: The lungs bases are clear. No cardiomegaly. The leftdiaphragm is slightly elevated, unchanged. LIVER: The liver is enlarged, measures 18.1 cm in craniocaudal dimension.Normal contour. No focal hepatic lesions are identified within limitationof a noncontrast study. GALLBLADDER AND BILIARY TREE: Surgical absence of the gallbladder is noted.Slight prominence of the common bile duct, measuring up to 0.6 cm, likelyrelated to reservoir phenomenon, secondary to prior cholecystectomy. SPLEEN: No splenomegaly. PANCREAS: Noductal dilation or masses. ADRENAL GLANDS: No adrenal nodules. KIDNEYS: Multiple punctate hypodensities are seen in the kidneys (2:62, 58and 59). No hydronephrosis or masses. PERITONEUM AND RETROPERITONEUM: No free air or fluid. LYMPH NODES: No lymphadenopathy. GI TRACT: Surgical clips are seen withinthe mid abdomen. A moderate amountof stool and gas is seen throughout the colon down to the rectum. Nodilation or wall thickening. PELVIS/BLADDER: Surgical absence of the uterus. The bladder isdecompressed. VESSELS: Unremarkable. BONES AND SOFT TISSUES: No suspicious lytic or sclerotic bony lesions. [facility], Radiant Results Inft User - 02/15/2020 10:31 PM CSTEXAM: CT ABDOMEN AND PELVIS WITHOUT CONTRASTHISTORY: 34-year-old female complaints of nausea, vomiting and diarrhea forthe past 3 days.COMPARISON: CT abdomen-pelvis dated 05/30/2019.DOSE: 191 mGy-cm.TECHNIQUE AND FINDINGS: Contiguous axial imagingfrom the level of the lungbases through the pubic symphysis was performed without the intravenousadministration of contrast. Coronal and sagittal reconstructions wereobtained. Auto mA and/or iterativereconstruction were used to reduceradiation dose.FINDINGS:LOWER THORAX: The lungs bases are clear. No cardiomegaly. The leftdiaphragm is slightly elevated, unchanged.LIVER: The liver is enlarged, measures 18.1 cm in craniocaudal dimension.Normal contour. No focal hepatic lesions are identified within limitationof a noncontrast study.GALLBLADDER AND BILIARY TREE: Surgical absence of the gallbladder isnoted.Slight prominence of the common bile duct, measuring up to 0.6 cm, likelyrelated to reservoir phenomenon, secondary to prior cholecystectomy.SPLEEN: No splenomegaly.PANCREAS: No ductal dilation or masses.ADRENAL GLANDS: No adrenal nodules.KIDNEYS: Multiple punctate hypodensities are seen in the kidneys (2:62, 58and 59). No hydronephrosis or masses.PERITONEUM AND RETROPERITONEUM: No free air or fluid.LYMPH NODES: No lymphadenopathy.GI TRACT: Surgical clips are seen within the mid abdomen. A mode rate amountof stool and gas is seen throughout the colon down to the rectum. Nodilation or wall thickening.PELVIS/BLADDER: Surgical absence of the uterus. The bladder isdecompressed.VESSELS: Unremarkable.BONES AND SOFT TISSUES: No suspicious lytic or sclerotic bony lesions.IMPRESSION1. Punctate nonobstructive bilateral renal calculi.2. Mild hepatomegaly. Status post cholecystectomy and hysterectomy.Preliminary Report Dictated by Resident: Ramonita Chan MD., have reviewed this study and agree with theabove report. [facility]00 Test Item Value Reference Range Interpretation Comments APPEARANCE (test code = Clear Clear 6092898337) COLOR (test code = Yellow Yellow 9836899409) PH (test code = 4.8-8.0 3567820419) SP GRAVITY (test code = 1.003-1.030 3542750468) GLU U QUAL (test code = Normal Normal 4836668335) BLOOD (test code = 1+ Negative A 7869658915) KETONES (test code = Negative Negative 1916724522) PROTEIN (test code = Negative Negative 2887-8) UROBILIN (test code = Normal Normal 4070458314) BILIRUBIN (test code = Negative Negative 5405971578) NITRITE (test code = Negative Negative 3960656390) LEUK LAVELLE (test code = Negative Negative 1115720950) RBC/HPF (test code = See_Comment [Autom ated message] 1765710714) The system [employer] generated this result transmitted ref erence range: 0 - 3 HP F. The reference range was not used to int erpret this result as normal/abnormal . WBC/HPF (test code = <1 See_Comment [Autom ated message] 4554036873) The system [employer] generated this result transmitted ref erence range: 0 - 5 HP F. The reference range was not used to int erpret this result as normal/abnormal . BACTERIA (test code = Negative Negative 8807790912) SQ EPITH (test code = HPF 2787030319) HYAL CAST (test code = See_Comment [Aut omated message] 9547916690) The system [employer] generated this result transmitted ref erence range: <=2 LPF. The reference range was not used to int erpret this result as normal/abnormal . Lab Interpretation (test Abnormal code = 78197-4) [facility] (ID NOW RAPID TESTING)2020-02-16 03:45:00 Test Item Value Reference Range Interpretation Comments SARS-CoV-2 Rapid ID NOW Not Detected Not Detected (test code = 01729-9) ERNESTO (test code = ERNESTO) ID NOW COVID-19 Assay is an isothermal nucleic acid amplification test intended for the qualitative detection of nucleic acid from SARS-CoV-2 viral RNA in nasopharyngeal (YARN SPOOLER) specimens. It is used under Emergency Use Authorization (EUA) by FDA. The limit of detection (LOD) of the assay is 125 Genome Equivalents/mL. A positive result is indicative of the presence of SARS-CoV-2 RNA. ?Clinical correlation with patient history and other diagnostic [...] for repeat patient testing if clinically indicated. Lab Interpretation Normal (test code = 43057-4) [facility] Metabolic Panel (NA, K, CL, CO2, GLUCOSE, BUN, CREATININE, CA)2020-02-16 03:43:00 Test Item Value Reference Range Interpretation Comments NA (test code = 138 mmol/L 135-145 7267660220) K (test code = 4.1 mmol/L 3.5-5 5764433601) CL (test code = 102 mmol/L 98-108 9564000944) CO2 TOTAL (test code = 27 mmol/L 23-31 5350060537) AGAP (test code = 2-16 9433397113) BUN (test code = 9 mg/dL 7-23 1115278533) GLUCOSE (test code = 97 mg/dL 70-110 0708142027) CREATININE (test code 0.66 mg/dL 0.5-1.04 = 9743938655) CALCIUM (test code = 10.1 mg/dL 8.6-10.6 8595833962) eGFR Calculation mL/min/1.73m2 (Non-) (test code = 0457339695) eGFR Calculation mL/min/1.73m2 () (test code = 1858056855) ERNESTO (test code = ERNESTO) Association of Glomerular Filtration Rate (GFR) and Staging of Kidney Disease* + -+ + ---+| GFR (mL/min/1.73 m2) ?| With Kidney Damage ?| ?Without Kidney Damage+ -------+ ------+ ---------+| ?>90 ?| ?Stage one ?| ? Normal ?+ --+ -+ ----+| ?60-89 ?| ?Stage two ?| ? Decreased GFR ? + -+ + ---+| ?30-59 ?| ?Stage three ?| ? Stage three ? + -+ + ---+| ?15-29 ?| ?Stage four ? | ? Stage four ?+ --+ -+ ----+| ?<15 (or dialysis) ? ?| ?Stage five ? | ? Stage five ?+ --+ -+ ----+ *Each stage assumes the associated GFR level has been in effect for at least three months. ?Stages 1 to 5, with or without kidney disease, indicate chronic kidney disease. Notes: Determination of stages one and two (with eGFR >59mL/min/1.73 m2) requires estimation of kidney damage for at least three months as defined by structural or functional abnormalities of the kidney, manifested by either:Pathological abnormalities or Markers of kidney damage (including abnormalities in the composition of the blood or urine or abnormalities in imaging tests). [facility] (ALB, T.PRO, BILI T, BU/BC, ALT, AST, ALK PHOS)2020-02-16 03:43:00 Test Item Value Reference Range Interpretation Comments TOTAL BILI (test code = 2273886773) 0.8 mg/dL 0.1-1.1 BILI UNCON (test code = 3185803814) 0.7 mg/dL 0.1-1.1 BILI CONJ (test code = 1762201354) 0.0 mg/dL 0-0.3 T PROTEIN (test code = 5541498852) 8.4 g/dL 6.3-8.2 H ALBUMIN (test code = 9330056603) 5.0 g/dL 3.5-5 ALK PHOS (test code = 3803330148) 62 U/L 34-122 ALTv (test code = 1742-6) 19 U/L 5-35 AST(SGOT) (test code = 6598575717) 28 U/L 13-40 Lab Interpretation (test code = Abnormal 42280-9) [facility] HospitalLipase [id number] 03:43:00 Test Item Value Reference Range Interpretation Comments LIPASE (test code = 1506828303) 109 U/L 0-220 Lab Interpretation (test code = Normal 84887-4) [facility] HospitalCBC with [id number] 03:29:00 Test Item Value Reference Range Interpretation Comments WBC (test code = See_Comment [Automated 6690-2) message] The sy stem which generated this result transmitted reference range : 4.30 - 11.10 10*3/?L. The reference range was not used to interpret this result as normal/abnormal . RBC (test code = See_Comment [Automated 789-8) message] The sy stem which generated this result transmitted reference range : 3.93 - 5.25 10*6/?L. The reference range was not used to interpret this result as normal/abnormal . HGB (test code = 14.2 g/dL 11.6-15 718-7) HCT (test code = 41.8 % 35.7-45.2 4544-3) MCV (test code = 86.0 fL 80.6-95.5 787-2) MCH (test code = 29.2 pg 25.9-32.8 785-6) MCHC (test code = 34.0 g/dL 31.6-35.1 786-4) RDW-SD (test code = 38.7 fL 39-49.9 L 81186-8) RDW-CV (test code = 12.4 % 12-15.5 788-0) PLT (test code = See_Comment [Automated 777-3) message] The sy stem which generated this result transmitted reference range : 166 - 358 10*3/ ?L. The reference r rosa was not used to interpret this result as normal/abnormal . MPV (test code = 11.8 fL 9.5-12.9 08839-0) NRBC/100 WBC (test See_Comment [Automat ed code = 2625554971) message] The system which generated this result transmitted reference range : 0.0 - 10.0 /100 WBCs. The refer ence range was not u sed to interpret th is result as normal/abnormal . NRBC x10^3 (test code <0.01 See_Comment [Auto mated = 6428857196) message] The s ystem which generated this result transmitted reference range : 10*3/?L. The reference range was not used to interpret this result as normal/abnormal . GRAN MAT (NEUT) % 50.8 % (test code = 770-8) IMM GRAN % (test code 0.20 % = 0370015476) LYMPH % (test code = 37.4 % 736-9) MONO % (test code = 9.2 % 5905-5) EOS % (test code = 1.9 % 713-8) BASO % (test code = 0.5 % 706-2) GRAN MAT x10^3(ANC) 2.94 10*3/uL 1.88-7.09 (test code = 2923967318) IMM GRAN x10^3 (test <0.03 0-0.06 code = 1114846641) LYMPH x10^3 (test code 2.16 10*3/uL 1.32-3.29 = 731-0) MONO x10^3 (test code 0.53 10*3/uL 0.33-0.92 = 742-7) EOS x10^3 (test code = 0.11 10*3/uL 0.03-0.39 711-2) BASO x10^3 (test code 0.03 10*3/uL 0.01-0.07 = 704-7) Lab Interpretation Abnormal (test code = 75901-2) [facility]UR[facility]IS2020-02-15 23:14:00 Test Item Value Reference Range Interpretation Comments APPEARANCE (test code = Clear Clear 2331510683) COLOR (test code = Yellow Yellow 1324770502) PH (test code = 4.8-8.0 2073777337) SP GRAVITY (test code = 1.003-1.030 1279326989) GLU U QUAL (test code = Normal Normal 8760091140) BLOOD (test code = Negative Negative 7308802664) KETONES (test code = 20 mg/dL Negative A 9065035437) PROTEIN (test code = Negative Negative 2887-8) UROBILIN (test code = Normal Normal 0974015326) BILIRUBIN (test code = Negative Negative 8950931944) NITRITE (test code = Negative Negative 2607102584) LEUK LAVELLE (test code = 25/uL Negative A 0440408878) RBC/HPF (test code = See_Comment [Autom ated message] 1836772266) The system [employer] generated this result transmitted ref erence range: 0 - 3 HP F. The reference range was not used to int erpret this result as normal/abnormal . WBC/HPF (test code = See_Comment [Autom ated message] 8725801960) The system [employer] generated this result transmitted ref erence range: 0 - 5 HP F. The reference range was not used to int erpret this result as normal/abnormal . BACTERIA (test code = Few Negative A 8375576647) MUCOUS (test code = Slight Negative LPF A 4367371776) SQ EPITH (test code = See_Comment [Auto mated message] 2886786326) The system [employer] generated this result transmitted ref erence range: <=2 HPF. The reference range was not used to int erpret this result as normal/abnormal . Lab Interpretation (test Abnormal code = 85129-8) [facility]CT [facility] WO [id number] 22:53:42 1. No acute findings in the abdomen or pelvis.2. Status post cholecystectomy and hysterectomy RL:501 AFC: [id number] End of report ORDERING CLINICIAN: LEIGHTON CARLOS TECHNIQUE: Multidetector helical scanning of the abdomen and pelvis wasperformed without IV or oral contrast. The lack of contrast limitsevaluation of the solid organs, vasculature and GI tract. Coronal andsagittal reformations were obtained. CT scan was performed according to the ALARA (as low as reasonablyachievable) principal. INDICATION: Abdominal pain COMPARISON:None DISCUSSION:There is no evidence of active colonic or small bowel inflammation orobstruction. ?The appendix is partially visualized and unremarkable. The lung bases are clear. The noncontrast appearance of the liver, kidneys,adrenal glands, spleen, pancreas and stomach are unremarkable. Thegallbladder has been removed. The uterus is absent. There is no pelvic mass or free fluid. The bladder isunremarkable. There are no acute or suspicious osseous abnormalities. ? [facility], Radiant Results Inft User - 05/30/2019 4:54 PM CSTORDERING CLINICIAN: LEIGHTON CARLOSTECHNIQUE: Multidetector helical scanning of the abdomen and pelvis wasperformed without IV or oral contrast. The lack of contrast limitsevaluation of the solid organs, vasculature and GI tract. Coronal andsagittal reformations were obtained.CT scan was performed according to the ALARA (as low as reasonablyachievable) principal.INDICATION: Abdominal pain COMPARISON:NoneDISCUSSION:There is no evidence of active colonic or small bowel inflammation orobstruction. The appendix is partially visualized and unremarkable.The lung bases are clear. The noncontrast appearance of the liver, kidneys,adrenal glands, spleen, pancreas and stomach are unremarkable. Th egallbladder has been removed.The uterus is absent. There is no pelvic mass or free fluid. The bladder isunremarkable.There are no acute or suspicious osseous abnormalities. IMPRESSION1. No acute findings in the abdomen or pelvis.2. Status post cholecystectomy and hysterectomyRL: [id number]: [id number] of r eport UnThe [facility]"
[2021-03-22] MEDS ORDERED: MEPERIDINE HCL 50 MG/ML ONE (20:48)
[2021-03-22] MEDS ORDERED: NA CHLORIDE 0.9% 1,000 ML ONE (20:48)
[2021-03-22] MEDS ORDERED: ONDANSETRON 4 MG/2 ML VIAL ONE (20:48)
[2021-03-22] MEDS ORDERED: dexAMETHasone 10 MG/ML VIAL ONE (20:48)
[2021-03-22] MEDS ORDERED: MORPHINE 4 MG/ML SYR ONE (22:39)
--- NOTE | 2021-03-22 23:14 | ER ---
Nurse's Notes [facility] Name: Veronica Valentin Age: 35 yrs Sex: Female : 1985 Arrival Date: 03/22/2021 Time: 18:55 Bed 19 Private MD: Diagnosis: Headache Presentation: 03/22 19:28 Chief complaint: Patient states: head ache. Coronavirus screen: Vaccine status: Patient da3 reports being unvaccinated. Ebola Screen: No symptoms or risks identified at this time. Initial Sepsis Screen: Does the patient meet any 2 criteria? No. Patient's initial sepsis screen is negative. Risk Assessment: Do you want to hurt yourself or someone else? Patient reports no desire to harm self or others. 19:28 Method Of Arrival: Ambulatory da3 19:28 Acuity: BREANNA 3 da3 19:31 Onset of symptoms was March 21, 2021. da3 Triage Assessment: 23:26 Headache History: Denies prior headaches. General: Appears in no apparent distress. ld1 uncomfortable, Behavior is calm, cooperative, appropriate for age. Pain: Pain Also complains of no other associated symptoms. Pain: Complains of pain in face Pain began gradually. Neuro: Level of Consciousness is awake, alert, obeys commands, Oriented to person, place, time, situation, Appropriate for age. Cardiovascular: Capillary refill < 3 seconds Patient's skin is warm and dry. Rhythm is regular. Respiratory: Airway is patent Respiratory effort is even, unlabored, Respiratory pattern is regular, symmetrical. Historical: - Immunization history:: Client reports having NOT received the Covid vaccine. - Social history:: Smoking status: Patient denies any tobacco usage or history of. - Family history:: not pertinent. - Hospitalizations: : No recent hospitalization is reported. Screenin:59 Abuse screen: Denies threats or abuse. Nutritional screening: No deficits noted. bb Tuberculosis screening: No symptoms or risk factors identified. Fall Risk None identified. Assessment: 20:59 General: Appears uncomfortable, Behavior is cooperative. Pain: Complains of pain in bb headache. Neuro: Level of Consciousness is awake, alert, obeys commands, Oriented to person, place, time, situation. Cardiovascular: Capillary refill < 3 seconds Patient's skin is warm and dry. Respiratory: Airway is patent Respiratory effort is even, unlabored, Respiratory pattern is regular. GI: Reports nausea. Derm: Skin is pink, warm \T\ dry. Musculoskeletal: Circulation, motion, and sensation intact. 22:47 Reassessment: pt states her pain is coming back Dr Trujillo notified new orders received bb pt medicated see JUN. 23:25 Reassessment: Patient appears in no apparent distress at this time. Patient and/or ld1 family updated on plan of care and expected duration. Pain level reassessed. Patient is alert, oriented x 3, equal unlabored respirations, skin warm/dry/pink. Vital Signs: 19:31 BP 132 / 96; Pulse 72; Resp 16; Temp 98.0; Pulse Ox 100% on R/A; Weight 54.43 kg; da3 Height 5 ft. 7 in. (170.18 cm); 20:46 BP 131 / 80; Pulse 61; Resp 16; Temp 98.0; Pulse Ox 100% ; lt3 22:49 BP 109 / 68; Pulse 64; Resp 16 S; Pulse Ox 98% on R/A; bb 23:25 BP 107 / 68; Pulse 56; Resp 18; Pulse Ox 97% on R/A; ld1 19:31 Body Mass Index 18.79 (54.43 kg, 170.18 cm) da3 Mary Coma Score: 23:13 Eye Response: spontaneous(4). Verbal Response: oriented(5). Motor Response: obeys rn commands(6). Total: 15. ED Course: 18:55 Patient arrived in ED. mr 19:30 Triage completed. da3 20:36 Danny Trujillo MD is Attending Physician. rn 20:46 Myrna Michele RN is Primary Nurse. bb 20:53 Inserted saline lock: 22 gauge in right antecubital area, using aseptic technique. lt3 20:59 Patient has correct armband on for positive identification. Bed in low position. Call bb light in reach. Adult w/ patient. 22:16 CT Head Brain wo Cont In Process Unspecified. EDMS 23:14 Arturo Oliva MD is Referral Physician. rn 23:26 No provider procedures requiring assistance completed. IV discontinued, intact, ld1 bleeding controlled, No redness/swelling at site. 23:28 Arm band placed on right wrist. ld1 Administered Medications: 20:53 Drug: Zofran (Ondansetron) 4 mg Route: IVP; Site: right antecubital; bb 22:46 Follow up: Response: No adverse reaction bb 20:53 Drug: NS 0.9% 1000 ml Route: IV; Rate: 1000 ml; Site: right antecubital; bb 22:46 Follow up: IV Status: Completed infusion; IV Intake: 1000ml bb 20:55 Drug: Decadron - Dexamethasone 10 mg Route: IVP; Site: right antecubital; bb 22:46 Follow up: Response: No adverse reaction bb 20:55 Drug: Demerol (meperidine) 50 mg Route: IVP; Site: right antecubital; bb 22:46 Follow up: Response: No adverse reaction bb 22:46 Drug: morphine 4 mg Route: IVP; Site: right antecubital; bb Intake: 22:46 IV: 1000ml; Total: 1000ml. bb Outcome: 23:14 Discharge ordered by . rn 23:27 Discharged to home ambulatory, with family. ld1 23:27 Condition: stable 23:27 Discharge instructions given to patient, family, Instructed on discharge instructions, follow up and referral plans. Demonstrated understanding of instructions, follow-up care. 23:28 Patient left the ED. ld1 Signatures: Dispatcher [employer] EDWI MustafaJosee conte Brenda, RN RN bb Danny Trujillo MD MD rn Dibbern, Lauren, RN RN ld1 Ismael Dalton RN RN chante3 Sneha Vicente lt3 Corrections: (The following items were deleted from the chart) 19:30 19:30 PMHx: Asthma; da3 da3 19:30 19:30 PMHx: DIC; da3 da3 19:30 19:30 PMHx: coma; da3 da3 19:30 19:30 PMHx: uncontrolled nausea; da3 da3 21:01 20:50 NS 0.9% 1000 ml IV at 1000 ml in right antecubital bb bb
--- NOTE | 2021-03-22 23:14 | EDPHYS ---
Physician Documentation [facility] Name: Veronica Valentin Age: 35 yrs Sex: Female : 1985 Arrival Date: 03/22/2021 Time: 18:55 Bed 19 Private MD: ED Physician Danny Trujlilo HPI: 03/22 22:21 This 35 yrs old Female presents to ER via Ambulatory with complaints of rn Headache, Nausea, Eye Pain. 22:21 The patient complains of pain to the forehead. The patient describes the headache as rn aching. Onset: The symptoms/episode began/occurred yesterday. Associated signs and symptoms: Pertinent positives: malaise, nausea, Photophobia Pertinent negatives: altered mental status, fever, neck stiffness, rash, vision changes, vision loss, vertigo. Severity of symptoms: At its worst the pain was moderate, "never this severe", in the emergency department the pain is unchanged. Headache History: The patient has had previous headaches and this one is more severe than previous episodes. The symptoms are alleviated by nothing. the symptoms are aggravated by lights, movement, noise. The patient has experienced similar episodes in the past. The patient has not recently seen a physician. Patient reports headache on the right side of her head behind her right eye, began yesterday, history of migraines and headaches but not this bad. Denies trauma. Denies focal neurological deficit. No vision changes or loss. No fever. Reports worse with lights and sound. Has not felt ill recently.. Historical: - Immunization history:: Client reports having NOT received the Covid vaccine. - Social history:: Smoking status: Patient denies any tobacco usage or history of. - Family history:: not pertinent. - Hospitalizations: : No recent hospitalization is reported. ROS: 22:21 Constitutional: Negative for fever, chills, and weight loss, Eyes: Negative for injury, rn pain, redness, and discharge, ENT: Negative for injury, pain, and discharge, Neck: Negative for injury, pain, and swelling, Cardiovascular: Negative for chest pain, palpitations, and edema, Respiratory: Negative for shortness of breath, cough, wheezing, and pleuritic chest pain, Abdomen/GI: Negative for abdominal pain, nausea, vomiting, diarrhea, and constipation, Back: Negative for injury and pain, : Negative for injury, bleeding, discharge, and swelling, MS/Extremity: Negative for injury and deformity, Skin: Negative for injury, rash, and discoloration, Neuro: Negative for weakness, numbness, tingling, and seizure. Exam: 22:21 Constitutional: This is a well developed, well nourished patient who is awake, alert, rn sitting in dark, legs crossed Head/Face: Normocephalic, atraumatic. Eyes: Pupils equal round and reactive to light, extra-ocular motions intact. Lids and lashes normal. Conjunctiva and sclera are non-icteric and not injected. Cornea within normal limits. Periorbital areas with no swelling, redness, or edema. Neck: Trachea midline, no thyromegaly or masses palpated, and no cervical lymphadenopathy. Supple, full range of motion without nuchal rigidity, or vertebral point tenderness. No Meningismus. Cardiovascular: Regular rate and rhythm. No pulse deficits. Respiratory: No increased work of breathing, no retractions or nasal flaring. Skin: Warm, dry, no rash MS/ Extremity: Pulses equal, no cyanosis. Neurovascular intact. Full, normal range of motion. Equal circumference. Neuro: Awake and alert, GCS 15, oriented to person, place, time, and situation. Cranial nerves II-XII grossly intact. Motor strength 5/5 in all extremities. Sensory grossly intact. Cerebellar exam normal. Vital Signs: 19:31 BP 132 / 96; Pulse 72; Resp 16; Temp 98.0; Pulse Ox 100% on R/A; Weight 54.43 kg; da3 Height 5 ft. 7 in. (170.18 cm); 20:46 BP 131 / 80; Pulse 61; Resp 16; Temp 98.0; Pulse Ox 100% ; lt3 22:49 BP 109 / 68; Pulse 64; Resp 16 S; Pulse Ox 98% on R/A; bb 23:25 BP 107 / 68; Pulse 56; Resp 18; Pulse Ox 97% on R/A; ld1 19:31 Body Mass Index 18.79 (54.43 kg, 170.18 cm) da3 [place] Coma Score: 23:13 Eye Response: spontaneous(4). Verbal Response: oriented(5). Motor Response: obeys rn commands(6). Total: 15. MDM: 20:36 Patient medically screened. rn 23:13 Differential diagnosis: cluster headache, hypertensive headache, migraine, neoplasm, rn tension headache, vasomotor headache. Data reviewed: vital signs, nurses notes, radiologic studies, CT scan, and as a result, I will discharge patient. Counseling: I had a detailed discussion with the patient and/or guardian regarding: the historical points, exam findings, and any diagnostic results supporting the discharge/admit diagnosis, radiology results, the need for outpatient follow up, to return to the emergency department if symptoms worsen or persist or if there are any questions or concerns that arise at home. Response to treatment: the patient's symptoms have mildly improved after treatment, and as a result, I will discharge patient. Special discussion: I discussed with the patient/guardian in detail that at this point there is no indication for admission to the hospital. It is understood, however, that if the symptoms persist or worsen the patient needs to return immediately for re-evaluation. ED course: Patient improved, required a second dose of pain medication and did well. CT head without acute findings. Normal neurological exam. Likely migraine given history of migraines. Told could be migraine versus ocular migraine.. 03/22 20:43 Order name: CT Head Brain wo Cont rn 03/22 20:43 Order name: IV Start; Complete Time: 20:53 rn Administered Medications: 20:53 Drug: Zofran (Ondansetron) 4 mg Route: IVP; Site: right antecubital; bb 22:46 Follow up: Response: No adverse reaction bb 20:53 Drug: NS 0.9% 1000 ml Route: IV; Rate: 1000 ml; Site: right antecubital; bb 22:46 Follow up: IV Status: Completed infusion; IV Intake: 1000ml bb 20:55 Drug: Decadron - Dexamethasone 10 mg Route: IVP; Site: right antecubital; bb 22:46 Follow up: Response: No adverse reaction bb 20:55 Drug: Demerol (meperidine) 50 mg Route: IVP; Site: right antecubital; bb 22:46 Follow up: Response: No adverse reaction bb 22:46 Drug: morphine 4 mg Route: IVP; Site: right antecubital; bb Disposition Summary: 03/22/21 23:14 Discharge Ordered Location: Home rn Problem: new rn Symptoms: have improved rn Condition: Stable rn Diagnosis - Headache rn Followup: rn - With: Arturo Oliva MD - When: As needed - Reason: Recheck today's complaints, Re-evaluation by your physician Discharge Instructions: - Discharge Summary Sheet rn - General Headache Without Cause rn Forms: - Medication Reconciliation Form rn - Thank You Letter rn - Antibiotic varnish inspector - Prescription Opioid Use rn Signatures: Dispatcher [employer] EDMyrna Dejesus RN RN bb Nieto, Roman, MD MD rn Allan, David, RN RN da3 Corrections: (The following items were deleted from the chart) 19:30 19:30 PMHx: Asthma; da3 da3 19:30 19:30 PMHx: DIC; da3 da3 19:30 19:30 PMHx: coma; da3 da3 19:30 19:30 PMHx: uncontrolled nausea; da3 da3
[2021-03-22 23:31] VITALS: TEMP 98
[2021-03-22 23:35] VITALS: BP 107/68; O2SAT 97
--- NOTE | 2021-03-23 13:47 | RAD REPORT ---
EXAM DESCRIPTION: CT - Head Brain Wo Cont - 03/23/2021 12:25 am CLINICAL HISTORY: 35 years Female headache, right side COMPARISON: None TECHNIQUE: Contiguous axial images of the brain were obtained without the administration of intraven ous contrast.This exam was performed according to our departmental dose-optimization program which in cludes use of Automated Exposure Control, adjustment of the mA and/or kV according to patient size an d/or use of iterative reconstruction technique. DLP: 837 mGy*cm FINDINGS: Brain: No acute intracranial hemorrhage. No extra-axial collection. No mass effect or dang iation. Ventricles: Within normal limits in size. Globes and orbits: No acute abnormality. Bones: No acute osseous finding Paranasal sinuses: Paranasal sinuses are clear. Mastoid air cells: Well pneumatized. Soft tissues: Within normal limits IMPRESSION: No acute intracranial abnormality. Electronically signed by: Darrell Allen DO 03/22/2021 10:38 PM [employer] Due to temporary technical issues with the PACS/Fluency reporting system, reports are being signed by the in house radiologists without review as a courtesy to insure prompt reporting. The interpreting radiologist is fully responsible for the content of the report.
== END 2021-03-22 23:28 | disposition home or self-care (01) ==
LOC: ER 18:50
DX: R51.9 Headache, unspecified (principal)
CPT/HCPCS: 70450; 96361; 96374; 96375; 99284; J1100; J2175; J2405; J7030

== ENCOUNTER 2022-11-09 14:39 | Emergency (ER) | payer OTHER ==
--- OUTSIDE RECORDS SUMMARY | 2022-11-09 14:49 | XMS REPORT | Continuity of Care Document ---
:1985 Author Organization [facility] t Address [address] [place] [address] [place] [id number] Care Team Providers Name Role Phone PANFILO CRISELDA Vera Primary Care Physician Unavailable Елена ROSALES, Angeli Mack Attending Clinician TAQUERIA MUNOZ Attending Clinician Unavailable Juan John MD Attending Clinician Taqueria Munoz DO Attending Clinician CANDACE ZIMMERMAN Attending Clinician Unavailable Jeffry Amaro Attending Clinician LEIGHTON CARLOS Attending Clinician Unavailable Leighton Carlos MD Attending Clinician Car Diamond MD Attending Clinician TAQUERIA MUNOZ Admitting Clinician Unavailable Taqueria Munoz DO Admitting Clinician LEIGHTON CARLOS Admitting Clinician Unavailable Payers Payer Name Policy Type Policy Number Effective Date Expiration Date S [facility] MEDICAID SSI PENDING 2019 PENDING [...] Active Overview: Univ ers abdominal abdominal 3-22 Formattin i ty of pain pain 00:00: g of this 00 note Medical might be Branch different from the original. 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 Added automatic ally from request for surgery [id number] Other Other Disease Active Overview: Univer s constipati constipati 2-06 Formattin ity of on on 00:00: g of this 00 note Medical might be Branch different from the original. Added automatic ally from request for surgery [id number] Family Family Disease Active Overview: Univer s history of history of 2-06 Formattin ity of colon colon 00:00: g of this [place] cancer cancer 00 note Medical might be Branch different from the original. Added automatic ally from request for surgery [id number] Rectal Rectal Disease Active Overview: Univer s bleeding bleeding 2-06 Formattin ity of 00:00: g of this 00 note Medical might be Branch different from the original. 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 Allergies, Adverse Reactions, Alerts Allergy Allergy Status Severity Reaction(s) Onset Inactive Treating Comm ents Source Name Type Date Date Clinician SHELLFIS DRUG Active Anaphylaxis 2017-04 Uni vers H INGREDI 04-16 ity of DERIVED 00:00: [place] 00 Medical Branch Shellfis Propensi Active Anaphylaxis 2017-04 U nivers h ty to 04-16 ity of Derived adverse 00:00: [place] reaction 00 Medical s Branch PHENERGA DRUG Active High Hallucinates 2017-04 Un saqib N PLAIN 0-17 ity of 00:00: [place] Medical [facility] Phenerga Propensi Active Hallucinatio 2017-04 Univers n Plain ty to ns 0-17 ity of adverse 00:00: [place] reaction 00 Medical s Branch DIPHENHY DRUG Active Anaphylaxis Uni vers DRAMINE INGREDI 05-12 ity of HCL 00:00: [place] [facility] Diphenhy Propensi Active Anaphylaxis U nivers dramine ty to 05-12 ity of Hcl adverse 00:00: [place] reaction 00 [facility] Branch IODINE Drug Active Hives Univers AND Class 1-13 ity of IODIDE 00:00: [place] CONTAINI 00 Medical Branch PRODUCTS Iodine Propensi Active Hives Univers And ty to 1-13 ity of Iodide adverse 00:00: [place] Containi reaction 00 Medica l ng s to Branch Products drug Iodine Propensi Active Hives Univers And ty to 1-13 ity of Iodide adverse 00:00: [place] Containi reaction 00 Medica l ng s to Branch Products drug Social History Social Habit Start Date Stop Date Quantity Comments Source History [facility] o f Alcohol Frequency [facility] edical Branch History [facility] o f Alcohol Std Drinks [facility] History [facility] o f Alcohol Binge [facility] Exposure to 2021-07-02 2021-08-01 Not sure University of SARS-CoV-2 (event) 00:00:00 12:43:[address] [facility] Alcohol intake 2020-02-15 2020-02-15 Current University of 00:00:00 00:00:00 non-drinker of [facility] alcohol Branch (finding) Tobacco Comment 2018-02-27 2018-02-27 vape use daily Unive rsity of 00:00:00 00:00:[address] [facility] Alcohol Comment 2018-02-27 2018-02-27 quit 5 yrs ago, Univ ersity of 00:00:00 00:00:00 was using on [place] Medica l weekends Branch Cigarette 2018-02-13 2018-02-13 University of pack-years 00:00:00 00:00:[address] [facility] Cigarettes smoked 2018-02-13 2018-02-13 Univers ity of current (pack per 00:00:00 00:00:00 [facility] ) - Reported Branch Tobacco use and 2018-02-13 2018-02-13 Current user Univers ity of exposure 00:00:00 00:00:[address] [facility] History of tobacco 2010-02-27 2015-02-27 Cigarette Smoker University of use 00:00:00 00:00:[address] [facility] Sex [birth year] At [birth year] DIONNA Ceja 00:00:00 [facility]:00:00 [facility] Smoking Status Start Date Stop Date Source Former smoker 2018-02-13 00:00:00 2018-02-13 00:00:00 Universi ty [facility] Medications Ordered Filled Start Stop Current Ordering Indication Dosage Frequency Signature Comments Components Source Medication Medication Date Date Medication? Clinician (SIG) Name Name IBUPROFEN Yes Take by Unive rs ORAL 4-20 mouth. ity of 20:19: [address] polyethylen Yes Take by Uni vers e glycol 4-20 mouth. ity of 3350 20:19: [place] (MIRALAX 08 Medical ORAL) [place] IBUPROFEN Yes Take by Unive rs ORAL 4-20 mouth. ity of 20:19: [address] polyethylen Yes Take by Uni vers e glycol 4-20 mouth. ity of 3350 20:19: [place] (MIRALAX 08 Medical ORAL) [place] bisacodyL 2021- No 10mg 10 mg, Unive rs (DULCOLAX) 4-20 04-20 Rectal, ity o f suppository 16:45: 16:49 ONCE, 1 [place] 10 mg 00 :00 dose, On Medical Wed Branch 08/02/21 at 1145, Routine mineral oil Yes 30mL 30 mL, Univ ers oral liquid 4-20 Enteral, ity of 30 mL 16:00: BID, First 00 dose Medical (after Branch last modificati on) on Sat08/02/21 at 1100, Until Discontinu ed, Routine glycerin/mi 2021- No 225mL 225 mL, U nivers neral oil 08-02 Rectal, ity of (AGLO 15:44: 16:48 ONCE, 1 [place] ENEMA) 00 :00 dose, On Medical (COMPOUNDED Sat ) Enem 225 08/02/21 at mL 1045, Routine enoxaparin Yes 40mg 40 mg, Unive rs (LOVENOX) 08-02 Subcutaneo ity of injection 14:00: [place], DAILY, [place] 40 mg 00 First dose Medical on Sat Branch 08/02/21 at 0900, Until Discontinu ed, Routine inulin 2021- No Take by Univers (FIBER 08-02 mouth. ity of GUMMIES 12:53: 00:00 [place] ORAL) 07 :00 Medical Branch mineral oil 2021-0 Yes [id number] 30mL Take 30 mL Univers oral liquid 4-20 through ity o f 00:00: enteral [place] 00 tube 2 Medical (two) Branch times daily. mineral oil 2021-0 Yes [id number] 30mL Take 30 mL Univers oral liquid 4-20 through ity o f 00:00: enteral [place] 00 tube 2 Medical (two) Branch times daily. ketorolac Yes 15mg 15 mg, Univer s (TORADOL) 08-01 Slow IV ity of injection 23:52: Push, [place] 15 mg 36 Q6HPRN, Medical Starting Branch on Sat08/01/21 at 1852, Until Discontinu ed, Routine, Pain (scale 4-6) ketorolac 2021- No 15mg 15 mg, Unive rs (TORADOL) 08-01 Slow IV ity of injection 21:00: 20:16 Push, [place] 15 mg 00 :00 ONCE, 1 Medical dose, On Branch Sat08/01/21 at 1600, Routine acetaminoph 2021- No 1000mg 1,000 mg, Univers en ADULT 08-01 IV ity of (OFIRMEV) 20:30: 20:29 Infusion, [place] injection 00 :00 Administer Medi elder 1,000 mg over 15 Branch Minutes, Q8H ABX, 3 doses, First dose on Sat08/01/21 at 1530, Last dose on Sat08/02/21 at 0730, Routine
Indicatio n: Non-periop erative Patient
Approved by: Per Policy (NPO Status) pantoprazol Yes 40mg 40 mg, Univ ers e 08-01 Slow IV ity of (PROTONIX) 19:30: Push, [place] injection 00 Q24H, Medical 40 mg First dose Branch on Sat08/01/21 at 1430, Until Discontinu ed D5W 0.45% 2021- No IV Univers NaCl 08-01-20 Infusion, ity of (1/2NS) 1 L 19:30: 17:17 at 100 [place] + KCL 20 00 :24 mL/hr, Medical mEq CONTINUOUS Branch , Starting on Sat08/01/21 at 1430, Until Sat08/02/21 at 1217, Routine ondansetron Yes 4mg 4 mg, Slow Univers (ZOFRAN 08-01 IV Push, ity of (PF)) 19:20: Administer [place] injection 4 29 over 15 Medic al mg Minutes, Branch Q6HPRN, Starting on Sat08/01/21 at 1420, Until Discontinu ed, Routine, Nausea and Vomiting (N/V) morpHINE 2019-04- No 4mg 4 mg, Slow Un saqib injection 4 04-1703 IV Push, ity of mg 04:15: 03:20 ONCE, 1 [place] 00 :00 dose, Mon Medical 02/15/20 at Branch 2215, STAT ondansetron 2019-04- No 4mg 4 mg, Slow Univers (ZOFRAN 04-17 IV Push, ity of (PF)) 04:15: 03:16 ONCE, 1 [place] injection 4 00 :00 dose, Mon Med ical mg 02/15/20 at Branch 2215, RAGHAVENDRA NaCl 0.9% 2019-04- No 1000mL at 999 Uni vers (NS) bolus 04-17-03 mL/hr, ity of infusion 03:15: 06:08 1,000 mL, [place] 1,000 mL 00 :00 IV Medical Infusion, Branch ONCE, 1 dose, 02/15/20 at 2115, RAGHAVENDRA ondansetron 2019-04 Yes [id number] 4mg Take 1 Univers 4 mg 1-03 tablet by ity of disintegrat 00:00: mouth [place] ing tablet 00 every 12 Medic al (twelve) Branch hours as needed for Nausea and Vomiting (N/V). dicyclomine 2019-04 Yes [id number] 10mg Take 1 Univers (BENTYL) 10 1-03 capsule by it y of mg capsule 00:00: mouth [place] (four) Medical times Branch daily as needed for Abdominal pain. ondansetron 2019-04- No [id number] 4mg Take 1 Univers 4 mg 1-03 04-20 tablet by ity of disintegrat 00:00: 00:00 [place] ing tablet 00 :00 every 12 Medic al (twelve) Branch hours as needed for Nausea and Vomiting (N/V). dicyclomine 2019-04 No [id number] 10mg Take 1 Univers (BENTYL) 10 1-03 04-20 capsule by i ty of mg capsule 00:00: 00:00 mouth 4 [place] 00 :00 (four) Medical times Branch daily as needed for Abdominal pain. traMADol 2019- No 50mg 50 mg, Univer s (ULTRAM) 2-16 02-15 Oral, ONCE ity of tablet 50 00:15: 23:13 NOW, 1 [place] mg 00 :00 dose, [facility] Medical 05/30/19 at Branch 1815, RAGHAVENDRA ketorolac 2019- No 30mg 30 mg, Unive rs (TORADOL) 2-15 02-15 Intramuscu ity of injection 23:45: 22:54 lar, ONCE, [place] 30 mg 00 :00 1 dose, Medical [facility] 05/30/19 at 1745, RAGHAVENDRA
Fa culty member approving Restricted medication : LEIGHTON CARLOS traMADol 2019- Yes [id number] 50mg Take 1 Un saqib (ULTRAM) 50 2-15 tablet by ity of mg tablet 00:00: mouth [place] 00 every 6 Medical (six) Branch hours as needed for Pain (scale 7-10). ondansetron Yes [id number] 4mg Take 1 Univers 4 mg 2-15 tablet by ity of disintegrat 00:00: mouth [place] ing tablet 00 every 8 Medica l (eight) Branch hours as needed for Nausea and Vomiting (N/V). traMADol Yes [id number] 50mg Take 1 Un saqib (ULTRAM) 50 2-15 tablet by ity of mg tablet 00:00: mouth [place] 00 every 6 Medical (six) Branch hours as needed for Pain (scale 7-10). ondansetron Yes [id number] 4mg Take 1 Univers 4 mg 2-15 tablet by ity of disintegrat 00:00: mouth [place] ing tablet 00 every 8 Medica l (eight) Branch hours as needed for Nausea and Vomiting (N/V). traMADol 2021- No [id number] 50mg Take 1 U nivers (ULTRAM) 50 2-15 04-20 tablet by it y of mg tablet 00:00: 00:00 mouth [place] 00 :00 every 6 Medical (six) Branch hours as needed for Pain (scale 7-10). ondansetron 2021- No [id number] 4mg Take 1 Univers 4 mg 2-15 04-20 tablet by ity of disintegrat 00:00: 00:00 [place] tablet 00 :00 every 8 Medica l (eight) Branch hours as needed for Nausea and Vomiting (N/V). cyclobenzap Yes [id number] 10mg Take 1 Univers rine 10 mg 7-27 tablet by ity of tablet 00:00: mouth 2 [place] 00 (two) Medical times Branch daily. sennosides Yes [id number] 8.6mg Take 1 Univers (SENNA) 8.6 7-27 tablet by ity of mg tablet 00:00: mouth [place] 00 daily. Medical Branch sennosides Yes [id number] 8.6mg Take 1 Univers (SENNA) 8.6 7-27 tablet by ity of mg tablet 00:00: mouth [place] 00 daily. Medical Branch sennosides Yes [id number] 8.6mg Take 1 Univers (SENNA) 8.6 7-27 tablet by ity of mg tablet 00:00: mouth [place] 00 daily. Medical Branch cyclobenzap Yes [id number] 10mg Take 1 Univers rine 10 mg 7-27 tablet by ity of tablet 00:00: mouth 2 [place] 00 (two) Medical times Branch daily. sennosides 2019- Yes [id number] 8.6mg Take 1 Univers (SENNA) 8.6 7-27 tablet by ity of mg tablet 00:00: mouth [place] 00 daily. Medical Branch cyclobenzap Yes [id number] 10mg Take 1 Univers rine 10 mg 7-27 tablet by ity of tablet 00:00: mouth 2 [place] 00 (two) Medical times Branch daily. sennosides Yes [id number] 8.6mg Take 1 Univers (SENNA) 8.6 7-27 tablet by ity of mg tablet 00:00: mouth [place] 00 daily. Medical Branch cyclobenzap Yes [id number] 10mg Take 1 Univers rine 10 mg 7-27 tablet by ity of tablet 00:00: mouth 2 [place] 00 (two) Medical times Branch daily. sennosides Yes [id number] 8.6mg Take 1 Univers (SENNA) 8.6 7-27 tablet by ity of mg tablet 00:00: mouth [place] 00 daily. Medical Branch cyclobenzap Yes [id number] 10mg Take 1 Univers rine 10 mg 7-27 tablet by ity of tablet 00:00: mouth 2 [place] 00 (two) Medical times Branch daily. sennosides Yes [id number] 8.6mg Take 1 Univers (SENNA) 8.6 7-27 tablet by ity of mg tablet 00:00: mouth [place] 00 daily. Medical Branch cyclobenzap 2021- No [id number] 10mg Take 1 Univers rine 10 mg 7-27 04-20 tablet by ity of tablet 00:00: 00:00 mouth 2 [place] 00 :00 (two) Medical times Branch daily. cyclobenzap 2018- No [id number] 10mg Take 1 Univers rine 10 mg 6-13 07-22 tablet by ity of tablet 00:00: 00:00 mouth 2 [place] 00 :00 (two) Medical times Branch daily. cyclobenzap 2019- No [id number] 10mg Take 1 Univers rine 10 mg 6-13 07-22 tablet by ity of tablet 00:00: 00:00 mouth 2 [place] 00 :00 (two) Medical times Branch daily. polyethylen Yes Take by Uni vers e glycol 5-21 mouth. ity of 3350 17:16: [place] (MIRALAX 14 Medical ORAL) Branch IBUPROFEN Yes Take by Unive rs ORAL 5-21 mouth. ity of 17:16: [place] [address] Medical Branch inulin Yes Take by Univers (FIBER 5-21 mouth. ity of GUMMIES 17:16: [place] ORAL) 14 Medical Branch polyethylen Yes Take by Uni vers e glycol 5-21 mouth. ity of 3350 17:16: [place] (MIRALAX 14 Medical ORAL) Branch IBUPROFEN Yes Take by Unive rs ORAL 5-21 mouth. ity of 17:16: [place] [address] Medical Branch inulin Yes Take by Univers (FIBER 5-21 mouth. ity of GUMMIES 17:16: [place] ORAL) Medical Branch polyethylen Yes Take by Uni vers e glycol 5-21 mouth. ity of 3350 17:16: [place] (MIRALAX 14 Medical ORAL) Branch IBUPROFEN Yes Take by Unive rs ORAL 5-21 mouth. ity of 17:16: [place] [address] Medical Branch inulin Yes Take by Univers (FIBER 5-21 mouth. ity of GUMMIES 17:16: [place] ORAL) Medical Branch polyethylen Yes Take by Uni vers e glycol 5-21 mouth. ity of 3350 17:16: [place] (MIRALAX 14 Medical ORAL) Branch IBUPROFEN Yes Take by Unive rs ORAL 5-21 mouth. ity of 17:16: [place] [address] Medical Branch inulin Yes Take by Univers (FIBER 5-21 mouth. ity of GUMMIES 17:16: [place] ORAL) Medical Branch polyethylen Yes Take by Uni vers e glycol 5-21 mouth. ity of 3350 17:16: [place] (MIRALAX 14 Medical ORAL) Branch IBUPROFEN Yes Take by Unive rs ORAL 5-21 mouth. ity of 17:16: [place] [address] Medical Branch inulin Yes Take by Univers (FIBER 5-21 mouth. ity of GUMMIES 17:16: [place] ORAL) Medical Branch omeprazole Yes [id number] 40mg Take 1 U nivers 40 mg 4-18 capsule by ity of capsule 00:00: mouth [place] 00 daily. Medical Branch omeprazole Yes [id number] 40mg Take 1 U nivers 40 mg 4-18 capsule by ity of capsule 00:00: mouth [place] 00 daily. Medical Branch omeprazole Yes [id number] 40mg Take 1 U nivers 40 mg 4-18 capsule by ity of capsule 00:00: mouth [place] 00 daily. Medical Branch omeprazole Yes [id number] 40mg Take 1 U nivers 40 mg 4-18 capsule by ity of capsule 00:00: mouth [place] 00 daily. Medical Branch omeprazole Yes [id number] 40mg Take 1 U nivers 40 mg 4-18 capsule by ity of capsule 00:00: mouth [place] 00 daily. Medical Branch omeprazole 2021- No [id number] 40mg Take 1 Univers 40 mg 4-18 04-20 capsule by ity of capsule 00:00: 00:00 mouth [place] 00 :00 daily. Medical Branch sennosides 2019- No [id number] 8.6mg Take 1 Univers (SENNA) 8.6 3-22 07-22 tablet by it y of mg tablet 00:00: 00:00 mouth [place] 00 :00 daily. Medical Branch sennosides 2019- No [id number] 8.6mg Take 1 Univers (SENNA) 8.6 3-22 07-22 tablet by it y of mg tablet 00:00: 00:00 mouth [place] 00 :00 daily. [facility] Branch Vital Signs Vital Name Observation Time Observation Value Comments Source Systolic blood 2021-08-02 16:54:00 94 mm[Hg] Univer sity of pressure [facility] Diastolic blood 2021-08-02 16:54:00 64 mm[Hg] Unive [facility] Heart rate 2021-08-02 16:54:00 70 /min [facility] Body temperature 2021-08-02 16:54:00 36.06 Zamzam [facility] Respiratory rate 2021-08-02 16:54:00 18 /min [facility] Oxygen saturation in 2021-08-02 16:54:00 100 /min [facility] Arterial blood by [facility] Pulse oximetry Branch Body weight 2021-08-01 17:43:00 52.164 kg [facility] BMI 2021-08-01 17:43:00 18.01 kg/m2 Universi ty of [place] [facility] Systolic blood 2020-02-16 07:00:00 111 mm[Hg] Univer sity of pressure [place] [facility] Diastolic blood 2020-02-16 07:00:00 82 mm[Hg] Unive rsity of pressure [place] [facility] Heart rate 2020-02-16 07:00:00 60 /min Universi ty of [facility] Branch Body temperature 2020-02-16 07:00:00 36.56 Zamzam Univ ersity of [place] [facility] Respiratory rate 2020-02-16 07:00:00 13 /min Univ ersity of [place] [facility] Oxygen saturation in 2020-02-16 07:00:00 100 /min University of Arterial blood by [place] [facility] Pulse oximetry Branch Body weight 2020-02-16 02:59:00 52.164 kg Universi ty of [place] [facility] BMI 2020-02-16 02:59:00 18.01 kg/m2 Universi ty of [place] [facility] Systolic blood 2020-02-16 07:00:00 111 mm[Hg] Univer sity of pressure [place] [facility] Diastolic blood 2020-02-16 07:00:00 82 mm[Hg] Unive rsity of pressure [place] [facility] Heart rate 2020-02-16 07:00:00 60 /min Universi ty of [facility] Branch Body temperature 2020-02-16 07:00:00 36.56 Zamzam Univ ersity of [place] [facility] Respiratory rate 2020-02-16 07:00:00 13 /min Univ ersity of [place] [facility] Oxygen saturation in 2020-02-16 07:00:00 100 /min University of Arterial blood by [place] [facility] Pulse oximetry Branch Body weight 2020-02-16 02:59:00 52.164 kg Universi ty of [place] [facility] BMI 2020-02-16 02:59:00 18.01 kg/m2 Universi ty of [place] [facility] Systolic blood 2019-05-30 23:31:55 110 mm[Hg] Univer sity of pressure [place] [facility] Diastolic blood 2019-05-30 23:31:55 73 mm[Hg] Unive rsity of pressure [place] [facility] Heart rate 2019-05-30 23:31:55 64 /min Universi ty of [facility] Branch Body temperature 2019-05-30 23:31:55 36.94 Zamzam Univ ersity of [place] [facility] Respiratory rate 2019-05-30 23:31:55 16 /min Univ ersity of [place] [facility] Oxygen saturation in 2019-05-30 23:31:55 98 /min University of Arterial blood by [facility] Pulse oximetry Branch Body weight 2019-05-30 22:23:00 52.164 kg Universi ty of [place] [facility] BMI 2019-05-30 22:23:00 18.01 kg/m2 Universi ty of [place] [facility] Systolic blood 2019-05-30 23:31:55 110 mm[Hg] Univer sity of pressure [place] [facility] Diastolic blood 2019-05-30 23:31:55 73 mm[Hg] Unive rsity of pressure [place] [facility] Heart rate 2019-05-30 23:31:55 64 /min Universi ty of [place] [facility] Body temperature 2019-05-30 23:31:55 36.94 Zamzam Univ ersity of [place] [facility] Respiratory rate 2019-05-30 23:31:55 16 /min Univ ersity of [place] [facility] Oxygen saturation in 2019-05-30 23:31:55 98 /min University of Arterial blood by [facility] Pulse oximetry Branch Body weight 2019-05-30 22:23:00 52.164 kg Universi ty of [place] [facility] BMI 2019-05-30 22:23:00 18.01 kg/m2 Universi ty [facility] [place] [facility] Systolic blood 2018-11-03 15:02:00 132 mm[Hg] Univer sity of pressure [place] [facility] Diastolic blood 2018-11-03 15:02:00 84 mm[Hg] Unive rsity of pressure [place] [facility] Heart rate 2018-11-03 15:02:00 80 /min Universi ty of [place] [facility] Body height 2018-11-03 15:02:00 170.2 cm Universi ty of [place] [facility] Body weight 2018-11-03 15:02:00 59.194 kg Universi ty of [place] [facility] BMI 2018-11-03 15:02:00 20.44 kg/m2 Universi ty of [place] [facility] Oxygen saturation in 2018-11-03 15:02:00 100 /min University of Arterial blood by [facility] Pulse oximetry Branch Systolic blood 2018-11-03 15:02:00 132 mm[Hg] Univer sity of pressure [place] [facility] Diastolic blood 2018-11-03 15:02:00 84 mm[Hg] [facility] Heart rate 2018-11-03 15:02:00 80 /min [facility] Body height 2018-11-03 15:02:00 170.2 cm [facility] Body weight 2018-11-03 15:02:00 59.194 kg [facility] BMI 2018-11-03 15:02:00 20.44 kg/m2 [facility] Oxygen saturation in 2018-11-03 15:02:00 100 /min [facility] Arterial blood by [facility] Pulse oximetry Branch Procedures Procedure Date / Time Performing Clinician Source Performed XR KUB 2021-08-02 13:15:00 Teresita Whittaker [facility] PHOSPHORUS 2021-08-02 11:58:00 Teresita Whittaker [facility] MAGNESIUM 2021-08-02 11:58:00 Teresita Whittaker [facility] BASIC METABOLIC PANEL 2021-08-02 11:58:00 Teresita Whittaker [facility] (NA, K, CL, CO2, GLUCOSE, Иван Medica l Branch BUN, CREATININE, CA) CBC WITH DIFF 2021-08-02 11:58:00 Teresita Whittaker [facility] XR KUB 2021-08-01 22:54:03 Teresita Whittaker [facility] PHOSPHORUS 2021-08-01 20:17:00 Teresita Whittaker [facility] MAGNESIUM 2021-08-01 20:17:00 Teresita Whittaker [facility] BASIC METABOLIC PANEL 2021-08-01 20:17:00 Teresita Whittaker [facility] (NA, K, CL, CO2, GLUCOSE, Иван Medica l Branch BUN, CREATININE, CA) CBC WITH DIFF 2021-08-01 20:17:00 Teresita Whittaker [facility] COVID-19 (ID NOW RAPID 2021-08-01 20:17:00 Teresita Whittaker [facility] TESTING) [facility] LAB ONLY COVID 2021-08-01 20:17[facility] CT ABDOMEN PELVIS W 2021-08-01 19:05:58 Sammy Keita [facility] CONTRAST [facility] Branch XR KUB 2021-08-01 18:54[facility] 2020-02-16 07:06:00 Jeffry Sanches [facility] CT ABDOMEN PELVIS WO 2020-02-16 03:27:17 Jeffry Sanches [facility] CONTRAST [facility] Branch URINALYSIS 2020-02-16 03:15:00 Jeffry Sanches [facility] LIPASE 2020-02-16 03:06:00 Jeffry Sanches [facility] TROPONIN I 2020-02-16 03:06:00 Jeffry Sanches [facility] HEPATIC FUNCTION PANEL 2020-02-16 03:06:00 Jeffry Sanches [facility] ([id number]) (ALB,T.PRO,BILI Medical Branch T,BU/BC,ALT,AST,ALK PHOS) BASIC METABOLIC PANEL 2020-02-16 03:06:00 Jeffry Sanches [facility] (NA, K, CL, CO2, GLUCOSE, Medica l Branch BUN, CREATININE, CA) CBC WITH DIFF 2020-02-16 03:06:00 Jeffry Sanches [facility] COVID-19 (ID NOW RAPID 2020-02-16 03:06:00 Myron Jeffry [facility] TESTING) [facility] NOTICE OF PRIVACY 2020-02-16 02:52:04 Doctor Unassigned, [facility] PRACTICES [facility] CONSENT/REFUSAL FOR 2020-02-16 02:51:49 Doctor Unassigned, [facility] DIAGNOSIS AND TREATMENT [facility] URINALYSIS 2019-05-30 22:53:00 Leighton Carlos [facility] CT ABDOMEN PELVIS WO 2019-05-30 22:46:58 Leighton Carlos [facility] CONTRAST Medical Branch CONSENT/REFUSAL FOR 2019-05-30 22:19:28 Doctor Unassigned, Felicity [facility] DIAGNOSIS AND TREATMENT [facility] Encounters Start End Encounter Admission Attending Care Care Encounter Source Date/Time Date/Time Type Type Clinicians Facility Department ID 2021-02-[address] [facility] [id number] Univers 02:36:[address] [facility] 2021-08-03 2021-08-03 Transition ChristiansenJOSEFINAMike 1.2.840.114 [id number] Univers 00:00:00 00:00:00 of Care Angeli CHOY 350.1.13.10 i [place] [id number] [facility] 403 Branch 2021-08-01 2021-08-02 Inpatient X ALEXANDER [facility] GIANCARLO [id number] Univers 12:44:00 15:45:00 TAQUERIA galdamez [facility] 2021-08-01 2021-08-02 Hospital Juan John 1.2.84 0.114 [id number] Univers 12:44:00 15:45:00 Encounter Taqueria Munoz 350.1.13.[address] [facility] 4.2.7.2.686 Candido as [id number] [facility] 097 Branch 2020-04-26 2020-04-26 Outpatient R ERASMO, [facility] [id number] Univers 14:00:00 14:00:00 CANDACE galdamez of [facility] 2020-02-15 2020-02-16 Emergency [facility] 1.2.840.114 [id number] Univers 20:57:00 01:48:00 Jeffry B [place] 350.1.13.10 i [place] [phone] [facility] 084 Branch 2020-02-15 2020-02-16 [facility] 1.2.840.114 [id number] 20:57:00 01:48:00 Jeffry B [place] 350.1.13.10 [place] 4.2.7.2.686 [place] [id number] 084 2019-05-30 2019-05-30 Emergency X CHRISTIE, [facility] ERT [id number] Univers 16:24:26 17:34:00 LEIGHTON ity of [facility] 2019-05-30 2019-05-30 Emergency BON Carlos 1.2.045.142 [id number] Univers 16:24:26 17:34:00 Leighton [facility] 350.1.13.10 it y of [place] 4.2.7.2.686 [facility] [id number] [address] ([facility]) 2019-05-30 2019-05-30 BON Yang [id number] 16:24:26 17:34:00 Leighton [facility] 350.1.13.10 [place] 4.2.7.2.686 [facility] [id number] [address] ([facility]) 2019-03-26 2019-03-26 Patient Lobo, [facility] 1.2.840.114 [id number] [facility] 00:00:00 00:00:00 Secure Msg Car MULTISPEC 350.1.13.10 ity of [place] 4.2.7.2.686 [facility] [phone] [address] [facility] 2019-03-26 2019-03-26 Patient Lobo, [facility] 1.2.840.114 [id number] 00:00:00 00:00:00 Secure Msg Car MULTISPEC 350.1.13.10 [place] 4.2.7.2.686 [place] [id number] [place] [address] [facility] 2018-11-03 2018-11-03 Office Dotiffanyshirleyaustin, [facility] 1.2.840.114 [id number] [facility] 09:48:32 17:36:28 Visit Car MULTISPEC 350.1.13.10 ity of [place] 4.2.7.2.686 [facility] [id number] [address] DI[facility]ETES [facility]IC 2018-11-03 2018-11-03 Office Dotiffanytraaustin, [facility] 1.2.840.114 [id number] 09:48:32 17:36:28 Visit Car MULTISPEC 350.1.13.10 [place] 4.2.72.686 [place] [id number] [facility] [place] 011 [facility] Results Test Description Test Time Test Comments Results Result Comments Source BASIC METABOLIC PANEL (NA, K, CL, CO2, GLUCOSE, BUN, 2021-07 12:29:16 CREATININE, CA) Test Item Value Reference Range Interpretation Comme nts NA (test code = 0392781427) 139 mmol/L 135-145 K (test code = 6352953238) 4.0 mmol/L 3.5-5.0 CL (test code = 3656436661) 108 mmol/L 98-108 CO2 TOTAL (test code = 24 mmol/L 23-31 8146171486) AGAP (test code = 4971605458) 2-16 BUN (test code = 2459551217) 11 mg/dL 7-23 GLUCOSE (test code = 2882573009) 99 mg/dL 70-110 CREATININE (test code = 0.70 mg/dL 0.50-1.04 8956872509) CALCIUM (test code = 2825324193) 8.7 mg/dL 8.6-10.6 eGFR (test code = 4295427143) mL/min/1.73m2 ERNESTO (test code = ERNESTO) Association of Glomerular Filtration Rate (GFR) and Staging of Kidney Disease* + +--------- + ----+| GFR (mL/min/1.73 m2) ?| With Kidney Damage ?| ?Without Kidney Damage+ +--- + +| ?>90 ?| ?Stage one ?| ? Normal ?+ +-------- + -----+| ?60-89 ?| ?Stage two ?| ? Decreased GFR ? + +--------- + ----+| ?30-59 ?| ?Stage three ?| ? Stage three ? + +--------- + ----+| ?15-29 ?| ?Stage four ? | ? Stage four ?+ +-------- + -----+| ?<15 (or dialysis) ? ?| ?Stage five ? | ? Stage five ?+ +-------- + -----+ *Each stage assumes the associated GFR level [...] or urine or abnormalities in imaging tests). [facility] 12[facility]29:16 Test Item Value Reference Range Interpretation Comments MAGNESIUM (test code = 8640796245) 2.1 mg/dL 1.7-2.4 Lab Interpretation (test code = Normal 03227-3) [facility] 12:29:16 Test Item Value Reference Range Interpretation Comments PHOSPHORUS (test code = 3989286346) 4.0 mg/dL 2.5-5.0 Lab Interpretation (test code = Normal 64407-3) [facility] WITH [id number] 12:13:35 Test Item Value Reference Range Interpretation Comments WBC (test code = See_Comment [Automated 8390-2) message] The sy stem which generated this result transmitted reference range : 4.30 - 11.10 10*3/?L. The reference range was not used to interpret this result as normal/abnormal . RBC (test code = See_Comment [Automated 089-8) message] The sy stem which generated this result transmitted reference range : 3.93 - 5.25 10*6/?L. The reference range was not used to interpret this result as normal/abnormal . HGB (test code = 12.4 g/dL 11.6-15.0 718-7) HCT (test code = 38.0 % 35.7-45.2 4544-3) MCV (test code = 87.4 fL 80.6-95.5 787-2) MCH (test code = 28.5 pg 25.9-32.8 785-6) MCHC (test code = 32.6 g/dL 31.6-35.1 786-4) RDW-SD (test code = 41.7 fL 39.0-49.9 80729-9) RDW-CV (test code = 13.1 % 12.0-15.5 788-0) PLT (test code = See_Comment [Automated 697-3) message] The sy stem which generated this result transmitted reference range : 166 - 358 10*3/ ?L. The reference r rosa was not used to interpret this result as normal/abnormal . MPV (test code = 10.5 fL 9.5-12.9 81747-5) NRBC/100 WBC (test See_Comment [Automat ed code = 2146856132) message] The system which generated this result transmitted reference range : 0.0 - 10.0 /100 WBCs. The refer ence range was not u sed to interpret th is result as normal/abnormal . NRBC x10^3 (test code <0.01 See_Comment [Auto mated = 6567281104) message] The s ystem which generated this result transmitted reference range : 10*3/?L. The reference range was not used to interpret this result as normal/abnormal . GRAN MAT (NEUT) % 91.0 % (test code = 770-8) IMM GRAN % (test code 0.10 % = 6098115136) LYMPH % (test code = 2.5 % 736-9) MONO % (test code = 5.6 % 5905-5) EOS % (test code = 0.6 % 713-8) BASO % (test code = 0.2 % 706-2) GRAN MAT x10^3(ANC) 9.18 10*3/uL 1.88-7.09 H (test code = 3070530146) IMM GRAN x10^3 (test <0.03 0.00-0.06 code = 0036943800) LYMPH x10^3 (test code 0.25 10*3/uL 1.32-3.29 L = 731-0) MONO x10^3 (test code 0.56 10*3/uL 0.33-0.92 = 742-7) EOS x10^3 (test code = 0.06 10*3/uL 0.03-0.39 711-2) BASO x10^3 (test code <0.03 0.01-0.07 = 704-7) Lab Interpretation Abnormal (test code = 22289-0) [facility] METABOLIC PANEL (NA, K, CL, CO2, GLUCOSE, BUN, CREATININE, CA)2021-08-01 20:59:23 Test Item Value Reference Range Interpretation Comments NA (test code = 140 mmol/L 135-145 1477188399) K (test code = 4.3 mmol/L 3.5-5.0 6803995193) CL (test code = 111 mmol/L 98-108 H 3363391685) CO2 TOTAL (test code = 24 mmol/L 23-31 0262075433) AGAP (test code = 2-16 3711080622) BUN (test code = 11 mg/dL 7-23 9387481888) GLUCOSE (test code = 73 mg/dL 70-110 0630199335) CREATININE (test code = 0.58 mg/dL 0.50-1.04 3341837386) CALCIUM (test code = 8.5 mg/dL 8.6-10.6 L 9171584971) eGFR (test code = mL/min/1.73m2 8621871659) ERNESTO (test code = ERNESTO) Association of Glomerular Filtration Rate (GFR) and Staging of Kidney Disease* + --+ --+ ------+| GFR (mL/min/1.73 m2) ?| With Kidney Damage ?| ?Without Kidney Damage+ --------+ --------+ +| ?>90 ?| ?Stage one ?| ? Normal ?+ ---+ ---+ -------+| ?60-89 ?| ?Stage two ?| ? Decreased GFR ? + --+ --+ ------+| ?30-59 ?| ?Stage three ?| ? Stage three ? + --+ --+ ------+| ?15-29 ?| ?Stage four ? | ? Stage four ?+ ---+ ---+ -------+| ?<15 (or dialysis) ? ?| ?Stage five ? | ? Stage five ?+ ---+ ---+ -------+ *Each stage assumes the associated GFR level [...] or urine or abnormalities in imaging tests). Lab Interpretation Abnormal (test code = 24006-9) [facility] 20:59:23 Test Item Value Reference Range Interpretation Comments PHOSPHORUS (test code = 2130031095) 3.7 mg/dL 2.5-5.0 Lab Interpretation (test code = Normal 55949-8) [facility] 20:59:23 Test Item Value Reference Range Interpretation Comments MAGNESIUM (test code = 8124532415) 2.2 mg/dL 1.7-2.4 Lab Interpretation (test code = Normal 53054-4) [facility] WITH [id number] 20:33:20 Test Item Value Reference Range Interpretation Comments WBC (test code = See_Comment [Automated 9290-2) message] The sy stem which generated this result transmitted reference range : 4.30 - 11.10 10*3/?L. The reference range was not used to interpret this result as normal/abnormal . RBC (test code = See_Comment [Automated 549-8) message] The sy stem which generated this result transmitted reference range : 3.93 - 5.25 10*6/?L. The reference range was not used to interpret this result as normal/abnormal . HGB (test code = 12.7 g/dL 11.6-15.0 718-7) HCT (test code = 38.4 % 35.7-45.2 4544-3) MCV (test code = 89.1 fL 80.6-95.5 787-2) MCH (test code = 29.5 pg 25.9-32.8 785-6) MCHC (test code = 33.1 g/dL 31.6-35.1 786-4) RDW-SD (test code = 42.5 fL 39.0-49.9 78075-3) RDW-CV (test code = 12.9 % 12.0-15.5 788-0) PLT (test code = See_Comment [Automated 917-3) message] The sy stem which generated this result transmitted reference range : 166 - 358 10*3/ ?L. The reference r rosa was not used to interpret this result as normal/abnormal . MPV (test code = 11.0 fL 9.5-12.9 60163-3) NRBC/100 WBC (test See_Comment [Automat ed code = 2015650420) message] The system which generated this result transmitted reference range : 0.0 - 10.0 /100 WBCs. The refer ence range was not u sed to interpret th is result as normal/abnormal . NRBC x10^3 (test code <0.01 See_Comment [Auto mated = 3376440579) message] The s ystem which generated this result transmitted reference range : 10*3/?L. The reference range was not used to interpret this result as normal/abnormal . GRAN MAT (NEUT) % 74.3 % (test code = 770-8) IMM GRAN % (test code 0.30 % = 6651338483) LYMPH % (test code = 15.1 % 736-9) MONO % (test code = 9.3 % 5905-5) EOS % (test code = 0.7 % 713-8) BASO % (test code = 0.3 % 706-2) GRAN MAT x10^3(ANC) 5.58 10*3/uL 1.88-7.09 (test code = 8671287086) IMM GRAN x10^3 (test <0.03 0.00-0.06 code = 1937184435) LYMPH x10^3 (test code 1.13 10*3/uL 1.32-3.29 L = 731-0) MONO x10^3 (test code 0.70 10*3/uL 0.33-0.92 = 742-7) EOS x10^3 (test code = 0.05 10*3/uL 0.03-0.39 711-2) BASO x10^3 (test code <0.03 0.01-0.07 = 704-7) Lab Interpretation Abnormal (test code = 38128-1) [facility] [id number] 07:38:00 Test Item Value Reference Range Interpretation Comments TROPONIN I (test <0.012 See_Comment [Automated code = 3514868512) message] The system which generated this result [...] ? Lab Interpretation Normal (test code = 49699-4) [facility] HospitalFAITHN [id number] 04:38:00 Test Item Value Reference Range Interpretation Comments TROPONIN I (test <0.012 See_Comment [Automated code = 3912508193) message] The system which generated this result [...] ? Lab Interpretation Normal (test code = 23278-7) [facility] P[facility] WO [id number] 04:30:09 1. ?Punctate nonobstructive bilateral renal calculi. 2. ?Mild hepatomegaly. Status post cholecystectomy and hysterectomy. Preliminary Report Dictated by Resident: Ramonita Guzman ?MD Reynaldo., have reviewed this study and agree with [...] nausea, vomiting and diarrhea forthe past 3 days.COMPARISON:CT abdomen-pelvis dated 05/30/2019.DOSE: 191 mGy-cm.TECHNIQUE AND FINDINGS: Contiguous axial imaging from the level of the lungbases through the pubic symphysis was performed without the intravenousadministration of contrast. Coronal and sagittal reconstructions wereobtained. Auto mA and/or iterative re construction were used to reduceradiation dose.FINDINGS:LOWER THORAX: The lungs bases are clear. No cardiomegaly. The leftdiaphragm is slightly elevated, unchanged.LIVER: The liver is enlarged, measures 18.1 cm in craniocaudal dimension.Normal contour. No focal hepatic lesions are identified within quiroz itationof a noncontrast study.GALLBLADDER AND BILIARY TREE: Surgical absence of the gallbladder is noted.Slight prominence of the common bile duct, measuring up to 0.6 cm, likelyrelated to reservoir phenomenon, secondary to prior cholecystectomy.SPLEEN: No splenomegaly.PANCREAS: No ductal dilation or m asses.ADRENAL GLANDS: No adrenal nodules.KIDNEYS: Multiple punctate hypodensities are seen in the kidneys (2:62, 58and 59). No hydronephrosis or masses.PERITONEUM AND RETROPERITONEUM: No free air or fluid.LYMPH NODES: No lymphadenopathy.GI TRACT: Surgical clips are seen within the mid abdomen. A moderate amountof stool and [...] this study and agree with theabove report. [facility]inalysis2020-11-[facility] 04:27:00 Test Item Value Reference Range Interpretation Comments APPEARANCE (test code = Clear Clear 5300646422) COLOR (test code = Yellow Yellow 7064594805) PH (test code = 4.8-8.0 5444466171) SP GRAVITY (test code = 1.003-1.030 4474113615) GLU U QUAL (test code = Normal Normal 0751544136) BLOOD (test code = 1+ Negative A 6032047200) KETONES (test code = Negative Negative 2888243169) PROTEIN (test code = Negative Negative 2887-8) UROBILIN (test code = Normal Normal 6964269910) BILIRUBIN (test code = Negative Negative 3741732000) NITRITE (test code = Negative Negative 9192441620) LEUK LAVELLE (test code = Negative Negative 2037783164) RBC/HPF (test code = See_Comment [Autom ated message] 7510109418) The system [employer] generated this result transmitted ref erence range: 0 - 3 HP F. The reference range was not used to int erpret this result as normal/abnormal . WBC/HPF (test code = <1 See_Comment [Autom ated message] 8146810021) The system [employer] generated this result transmitted ref erence range: 0 - 5 HP F. The reference range was not used to int erpret this result as normal/abnormal . BACTERIA (test code = Negative Negative 6803564295) SQ EPITH (test code = HPF 1664698617) HYAL CAST (test code = See_Comment [Aut omated message] 3473837197) The system [employer] generated this result transmitted ref erence range: <=2 LPF. The reference range was not used to int erpret this result as normal/abnormal . Lab Interpretation (test Abnormal code = 21621-2) [facility] (ID NOW RAPID TESTING)2020-02-16 03:45:00 Test Item Value Reference Range Interpretation Comments SARS-CoV-2 Rapid ID NOW Not Detected Not Detected (test code = 38696-3) ERNESTO (test code = ERNESTO) ID NOW COVID-19 Assay is an isothermal nucleic acid amplification test intended for the qualitative detection of nucleic acid from SARS-CoV-2 viral RNA in nasopharyngeal (MALE INFERTILITY SPECIALIST) specimens. It is used under Emergency Use [...] indicated. Lab Interpretation Normal (test code = 79594-0) [facility] Metabolic Panel (NA, K, CL, CO2, GLUCOSE, BUN, CREATININE, CA)2020-02-16 03:43:00 Test Item Value Reference Range Interpretation Comments NA (test code = 138 mmol/L 135-145 7305895028) K (test code = 4.1 mmol/L 3.5-5 3085056774) CL (test code = 102 mmol/L 98-108 3689946501) CO2 TOTAL (test code = 27 mmol/L 23-31 3465914432) AGAP (test code = 2-16 0792330635) BUN (test code = 9 mg/dL 7-23 8819352773) GLUCOSE (test code = 97 mg/dL 70-110 9276786556) CREATININE (test code 0.66 mg/dL 0.5-1.04 = 1254957684) CALCIUM (test code = 10.1 mg/dL 8.6-10.6 5887387993) eGFR Calculation mL/min/1.73m2 (Non-) (test code = 3508633065) eGFR Calculation mL/min/1.73m2 () (test code = 8123776583) ERNESTO (test code = ERNESTO) Association of [...] or urine or abnormalities in imaging tests). [facility] (ALB, T.PRO, BILI T, BU/BC, ALT, AST, ALK PHOS)2020-02-16 03:43:00 Test Item Value Reference Range Interpretation Comments TOTAL BILI (test code = 3840012762) 0.8 mg/dL 0.1-1.1 BILI UNCON (test code = 1877885259) 0.7 mg/dL 0.1-1.1 BILI CONJ (test code = 7667736771) 0.0 mg/dL 0-0.3 T PROTEIN (test code = 8670656547) 8.4 g/dL 6.3-8.2 H ALBUMIN (test code = 3157657522) 5.0 g/dL 3.5-5 ALK PHOS (test code = 2565217208) 62 U/L 34-122 ALTv (test code = 1742-6) 19 U/L 5-35 AST(SGOT) (test code = 5735944626) 28 U/L 13-40 Lab Interpretation (test code = Abnormal 42336-9) [facility] Hospital[facility]ase [id number] 03:43:00 Test Item Value Reference Range Interpretation Comments LIPASE (test code = 1186339972) 109 U/L 0-220 Lab Interpretation (test code = Normal 80227-1) [facility] with [id number] 03:29:00 Test Item Value Reference Range Interpretation [...] (test code = 38.7 fL 39-49.9 L 98504-4) RDW-CV (test code = 12.4 % 12-15.5 788-0) PLT (test code = See_Comment [Automated 777-3) message] The sy stem which generated this result transmitted reference range : 166 - 358 10*3/ ?L. The reference r rosa was not used to interpret this result as normal/abnormal . MPV (test code = 11.8 fL 9.5-12.9 21478-7) NRBC/100 WBC (test See_Comment [Automat ed code = 6227382717) message] The system which generated this result transmitted reference range : 0.0 - 10.0 /100 WBCs. The refer ence range was not u sed to interpret th is result as normal/abnormal . NRBC x10^3 (test code <0.01 See_Comment [Auto mated = 0941075257) message] The s ystem which generated this result transmitted reference range : 10*3/?L. The reference range was not used to interpret this result as normal/abnormal . GRAN MAT (NEUT) % 50.8 % (test code = 770-8) IMM GRAN % (test code 0.20 % = 7614938792) LYMPH % (test code = 37.4 % 736-9) MONO % (test code = 9.2 % 5905-5) EOS % (test code = 1.9 % 713-8) BASO % (test code = 0.5 % 706-2) GRAN MAT x10^3(ANC) 2.94 10*3/uL 1.88-7.09 (test code = 3226882442) IMM GRAN x10^3 (test <0.03 0-0.06 code = 7764699274) LYMPH x10^3 (test code 2.16 10*3/uL 1.32-3.29 = 731-0) MONO x10^3 (test code 0.53 10*3/uL 0.33-0.92 = 742-7) EOS x10^3 (test code = 0.11 10*3/uL 0.03-0.39 711-2) BASO x10^3 (test code 0.03 10*3/uL 0.01-0.07 = 704-7) Lab Interpretation Abnormal (test code = 78519-5) [facility]IS2020-02-15 23:14:00 Test Item Value Reference Range Interpretation Comments APPEARANCE (test code = Clear Clear 0545686304) COLOR (test code = Yellow Yellow 9777834765) PH (test code = 4.8-8.0 4892530770) SP GRAVITY (test code = 1.003-1.030 5974910369) GLU U QUAL (test code = Normal Normal 6457797049) BLOOD (test code = Negative Negative 5677622739) KETONES (test code = 20 mg/dL Negative A 9044553939) PROTEIN (test code = Negative Negative 2887-8) UROBILIN (test code = Normal Normal 2187615347) BILIRUBIN (test code = Negative Negative 4961011363) NITRITE (test code = Negative Negative 4206353135) LEUK LAVELLE (test code = 25/uL Negative A 6542854255) RBC/HPF (test code = See_Comment [Autom ated message] 7978280566) The system [employer] generated this result transmitted ref erence range: 0 - 3 HP F. The reference range was not used to int erpret this result as normal/abnormal . WBC/HPF (test code = See_Comment [Autom ated message] 0185632345) The system [employer] generated this result transmitted ref erence range: 0 - 5 HP F. The reference range was not used to int erpret this result as normal/abnormal . BACTERIA (test code = Few Negative A 6838783782) MUCOUS (test code = Slight Negative LPF A 4873742746) SQ EPITH (test code = See_Comment [Auto mated message] 7683770704) The system [employer] generated this result transmitted ref erence range: <=2 HPF. The reference range was not used to int erpret this result as normal/abnormal . Lab Interpretation (test Abnormal code = 47991-0) [facility] P[facility] WO [id number] 22:53:42 1. No acute findings in the abdomen or pelvis.2. Status post cholecystectomy and hysterectomy RL: 501 AFC: [id number] End of report ORDERING CLINICIAN: LEIGHTON CARLOS [...] or small bowel inflammation orobstruction. ?The appendix ispartially visualized and unremarkable. The lung bases are clear. The noncontrast appearance of the liver, kidneys,adrenal glands, spleen, pancreas and stomach are unremarkable. Thegallbladder has been r emoved. The uterus is absent. There is no [...] ALARA (as low as reasonablyachievable) principal.INDICATION: Abdominal painCOMPAR DULCE MARIA:NoneDISCUSSION:There is no evidence of active colonic or small bowel inflammation orobstruction. The appendix is partially visualized and unremarkable.The lung bases are clear. The noncontrast appearance of the liver, kidneys,adrenal glands, spleen, pancreas and stomach are unremarkable. Thegallbl adder has been removed.The uterus is absent. There is no pelvic mass or free fluid. The bladder isunremarkable.There are no acute or suspicious osseous abnormalities. IMPRESSION1. No acute findings in the abdomen or pelvis.2. Status post cholecystectomy and hysterectomyRL: [id number]: [id number] of reportEle ctronically signed by Taqueria Beck at 05/30/2019 4:53 [facility]Un[facility]"
--- NOTE | 2022-11-09 15:58 | RAD REPORT ---
EXAM DESCRIPTION: CT - Abdomen Pelvis Wo Contrast - 11/09/2022 3:27 pm CLINICAL HISTORY: Abdominal pain COMPARISON: 2021 TECHNIQUE: Computed axial tomography of the abdomen and pelvis was obtained. IV and oral contrast we re not requested. All CT scans are performed using dose optimization technique as appropriate and may include automated exposure control or mA/KV adjustment according to patient size. FINDINGS: The evaluation of solid organs, vessels and bowel is limited secondary to the lack of con trast administration. Cholecystectomy. Liver, spleen, pancreas and adrenals grossly normal Punctate bilateral renal calculi. Ureteral calculus is not seen. No bladder calculus. Hydronephrosis is not present An abnormal appendix is not seen. Large amount of stool throughout the colon. Hysterectomy. No adnexal mass IMPRESSION: Tiny bilateral nonobstructing renal calculi Large amount of stool throughout the colon
[2022-11-09] MEDS ORDERED: MORPHINE 4 MG/ML SYR ONE (16:05)
[2022-11-09] MEDS ORDERED: ONDANSETRON 4 MG/2 ML VIAL ONE (16:05)
[2022-11-09] MEDS ORDERED: NA CHLORIDE 0.9% 1,000 ML ONE (16:05)
[2022-11-09 16:45] LABS: Hematocrit 36.6 % (36.0-45.0); Lymphocytes % 18.5 % (15.3-44.8); MCV 86.4 fL (80-100); MPV 9.5 fL (7.6-11.3); RBC Red Blood Cell Count 4.24 M/uL (3.86-4.86)
[2022-11-09 16:57] LABS: Specific Gravity 1.006 (1.005-1.030)
[2022-11-09 16:59] LABS: Specific Gravity 1.005 (1.005-1.030); Urine Bacteria <20 /HPF (<20); Urine Bilirubin NEGATIVE (Negative); Urine Blood Negative (Negative); Urine Clarity Turbid (Clear); Urine Color Colorless (Yellow); Urine Glucose NEGATIVE (Negative); Urine Protein NEGATIVE (Negative); Urine RBC <5 /HPF (None Seen); Urine Urobilinogen Normal (Normal); Urine pH 6.5 (5.0-7.0)
[2022-11-09 17:01] LABS: Albumin 4.2 g/dL (3.4-5.0); Bilirubin Total 0.3 mg/dL (0.2-1.0); Potassium 3.8 mEq/L (3.5-5.1); Protein, Total 7.4 g/dL (6.4-8.2)
--- NOTE | 2022-11-09 17:25 | EDPHYS ---
Physician Documentation [facility] Name: Veronica Valentin Age: 37 yrs Sex: Female : 1985 Arrival Date: 11/09/2022 Time: 14:39 Bed 18 Private MD: ED Physician Wilfredo Viramontes HPI: 11/09 16:31 This 37 yrs old Female presents to ER via Ambulatory with complaints of natasha Abdominal Pain, Back Pain, Nausea. 16:31 The patient presents with pain that is acute, with no known mechanism of injury. The natasha symptoms are located in the low back, right mid back and right low back. Onset: The symptoms/episode began/occurred 3 day(s) ago. The pain radiates to the right mid back. Associated signs and symptoms: Pertinent positives: constipation. Severity of symptoms: At their worst the symptoms were moderate, in the emergency department the symptoms are unchanged. The patient has not experienced similar symptoms in the past. Historical: - Allergies: 14:56 Benadryl; hb 14:56 Iodine; hb - Home Meds: 14:56 Qulipta 30 mg Oral tab for Migraine Prevention [Active]; hb - PMHx: 14:56 DIC; Migraine; hb - PSHx: 14:56 section; hb - Immunization history:: Adult Immunizations up to date. - Social history:: Smoking status: Patient denies any tobacco usage or history of. ROS: 16:38 Constitutional: Negative for fever, chills, and weight loss, Eyes: Negative for injury, natasha pain, redness, and discharge, ENT: Negative for injury, pain, and discharge, Neck: Negative for injury, pain, and swelling, Cardiovascular: Negative for chest pain, palpitations, and edema, Respiratory: Negative for shortness of breath, cough, wheezing, and pleuritic chest pain, Abdomen/GI: Negative for abdominal pain, nausea, vomiting, diarrhea, and constipation, : Negative for injury, bleeding, discharge, and swelling, MS/Extremity: Negative for injury and deformity, Skin: Negative for injury, rash, and discoloration, Neuro: Negative for headache, weakness, numbness, tingling, and seizure, Psych: Negative for depression, anxiety, suicide ideation, homicidal ideation, and hallucinations, Allergy/Immunology: Negative for hives, rash, and allergies, Endocrine: Negative for neck swelling, polydipsia, polyuria, polyphagia, and marked weight changes, Hematologic/Lymphatic: Negative for swollen nodes, abnormal bleeding, and unusual bruising. 16:38 Back: Positive for flank pain, on the right. Exam: 16:38 Constitutional: This is a well developed, well nourished patient who is awake, alert, natasha and in no acute distress. Head/Face: Normocephalic, atraumatic. Eyes: Pupils equal round and reactive to light, extra-ocular motions intact. Lids and lashes normal. Conjunctiva and sclera are non-icteric and not injected. Cornea within normal limits. Periorbital areas with no swelling, redness, or edema. ENT: Nares patent. No nasal discharge, no septal abnormalities noted. Tympanic membranes are normal and external auditory canals are clear. Oropharynx with no redness, swelling, or masses, exudates, or evidence of obstruction, uvula midline. Mucous membranes moist. Neck: Trachea midline, no thyromegaly or masses palpated, and no cervical lymphadenopathy. Supple, full range of motion without nuchal rigidity, or vertebral point tenderness. No Meningismus. Chest/axilla: Normal chest wall appearance and motion. Nontender with no deformity. No lesions are appreciated. Cardiovascular: Regular rate and rhythm with a normal S1 and S2. No gallops, murmurs, or rubs. Normal PMI, no JVD. No pulse deficits. Respiratory: Lungs have equal breath sounds bilaterally, clear to auscultation and percussion. No rales, rhonchi or wheezes noted. No increased work of breathing, no retractions or nasal flaring. Abdomen/GI: Soft, non-tender, with normal bowel sounds. No distension or tympany. No guarding or rebound. No evidence of tenderness throughout. Pelvic Exam: Normal external genitalia. Speculum exam with closed cervical os, no discharge or bleeding noted. Bimanual exam with normal adnexa, no adnexal or cervical motion tenderness. Normal uterus. Female : Normal external genitalia. Skin: Warm, dry with normal turgor. Normal color with no rashes, no lesions, and no evidence of cellulitis. MS/ Extremity: Pulses equal, no cyanosis. Neurovascular intact. Full, normal range of motion. Neuro: Awake and alert, GCS 15, oriented to person, place, time, and situation. Cranial nerves II-XII grossly intact. Motor strength 5/5 in all extremities. Sensory grossly intact. Cerebellar exam normal. Normal gait. Psych: Awake, alert, with orientation to person, place and time. Behavior, mood, and affect are within normal limits. 16:38 Back: pain, that is mild, ROM is painful, normal spinal alignment noted, CVA tenderness, that is mild, is noted on the right, muscle spasm, is not present. Vital Signs: 14:54 BP 123 / 93; Pulse 81; Resp 16; Temp 98.4(O); Pulse Ox 100% on R/A; Weight 54.43 kg; hb Height 5 ft. 7 in. ; Pain 8/10; 15:35 BP 140 / 83; Pulse 74; Resp 18; Pulse Ox 100% on R/A; eh3 16:30 BP 111 / 74; Pulse 64; Resp 18; Pulse Ox 100% on R/A; eh3 14:54 Body Mass Index 18.79 (54.43 kg, 170.18 cm) hb 14:54 Pain Scale: Adult hb Procedures: 16:38 Peripheral line: by aseptic technique a peripheral line was placed in the left external natasha jugular vein. MDM: 15:05 Patient medically screened. natasha 16:40 Differential diagnosis: nephrolithiasis, pyelonephritis, UTI, pancreatitis, Nonspecific natasha abd pain, gastritis, cholecystitis, pancreatitis, appendicitis, diverticulitis, viral gastroenteritis, gastroenteritis, chronic back pain, Hydronephrosis Neoplasm Pyelonephritis Renal Infarction sprain, Ureterolithiasis. Data reviewed: vital signs, nurses notes, lab test result(s), radiologic studies, CT scan. Consideration of Admission/Observation Escalation of care including admission/observation considered. I considered the following discharge prescriptions or medication management in the emergency department Medications were administered in the Emergency Department. See MAR. Test considered but Not performed: Ultrasound NO ABD USG. Care significantly affected by the following chronic conditions: DIC, MIGRAINE. 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 11/09 15:06 Order name: CBC with Diff; Complete Time: 17:14 [facility] 11/09 15:06 Order name: CMP; Complete Time: 17:14 [facility] 11/09 15:06 Order name: Lipase; Complete Time: 17:14 [facility] 11/09 15:06 Order name: Test, Urine; Complete Time: 17:14 [facility] 11/09 15:06 Order name: Urinalysis w/ reflexes; Complete Time: 17:14 [facility] 11/09 15:27 Order name: Abdomen ; Complete Time: 16:08 EDMS 11/09 15:06 Order name: IV Saline Lock; Complete Time: 16:40 [facility] 11/09 15:06 Order name: Labs collected and sent; Complete Time: 16:41 [facility] Administered Medications: 16:30 Drug: NS 0.9% IV 1000 ml Route: IV; Rate: 1 bolus; Site: left jugular; eh3 17:30 Follow up: IV Status: Completed infusion; IV Intake: 1000ml eh3 16:30 Drug: Ondansetron IVP 4 mg Route: IVP; Site: left jugular; eh3 17:30 Follow up: Response: No adverse reaction eh3 16:30 Drug: morphine IVP or IV 4 mg Route: IVP; Infused Over: 4 mins; Site: left jugular; eh3 17:30 Follow up: Response: No adverse reaction eh3 17:45 Drug: Dulcolax HI Suppository 10 mg Route: HI; eh3 18:30 Follow up: Response: No adverse reaction eh3 17:45 Drug: Lactulose PO 30 grams Volume: 45 ml; Route: PO; eh3 18:30 Follow up: Response: No adverse reaction eh3 Disposition Summary: 11/09/22 17:25 Discharge Ordered Location: Home natasha Problem: new natasha Symptoms: have improved natasha Condition: Stable natasha Diagnosis - Constipation natasha - Nausea natasha - Abdominal tenderness natasha Followup: natasha - With: Private Physician - When: 2 - 3 days - Reason: Recheck today's complaints, Continuance of care, Re-evaluation by your physician Followup: natasha - With: - When: 2 - 3 days - Reason: Recheck today's complaints, Re-evaluation by your physician Discharge Instructions: - Discharge Summary Sheet natasha - Abdominal Pain, Adult natasha - Constipation, Adult natasha - Nausea, Adult natasha - Constipation, Adult, [id number] natasha - Abdominal Pain, Adult, [id number] [facility] Forms: - Medication Reconciliation Form natasha - Thank You Letter natasha - Antibiotic Education natasha - Prescription Opioid Use natasha - Patient Portal Instructions [facility] Prescriptions: - Zofran 4 mg Oral Tablet - take 1 tablet by ORAL route every 12 hours As needed; 20 tablet; Refills: 0, [facility] Product Selection Permitted - Lactulose 10 gram/15 mL Oral Solution - take 30 milliliters by ORAL route once daily; 300 milliliter; Refills: 0, [facility] Product Selection Permitted - dicyclomine 20 mg Oral Tablet - take 1 tablet by ORAL route 4 times per day; 28 tablet; Refills: 0, Product [facility] Selection Permitted Signatures: Dispatcher [employer] EDWilfredo Caldwell MD MD cha Baxter, Heather, RN RN Domitila Hart RN RN eh3 Corrections: (The following items were deleted from the chart) 15:27 15:07 Abdomen Pelvis W [id number] ordered. EDMS EDMS
--- NOTE | 2022-11-09 17:25 | ER ---
Nurse's Notes [facility] Name: Veronica Valentin Age: 37 yrs Sex: Female : 1985 Arrival Date: 11/09/2022 Time: 14:39 Bed 18 Private MD: Diagnosis: Constipation;Nausea;Abdominal tenderness Presentation: 11/09 14:54 Chief complaint: Right flank pain and nausea since yesterday. Denies fever/difficulty hb urinating. Coronavirus screen: At this time, the client does not indicate any symptoms associated with coronavirus-19. Ebola Screen: No symptoms or risks identified at this time. Initial Sepsis Screen: Does the patient meet any 2 criteria? No. Patient's initial sepsis screen is negative. Does the patient have a suspected source of infection? No. Patient's initial sepsis screen is negative. Risk Assessment: Do you want to hurt yourself or someone else? Patient reports no desire to harm self or others. Onset of symptoms was November 08, 2022. 14:54 Method Of Arrival: Ambulatory hb 14:54 Acuity: BREANNA 3 hb Triage Assessment: 15:45 General: Appears in no apparent distress. uncomfortable, Behavior is calm, cooperative, eh3 appropriate for age. Historical: - Allergies: 14:56 Benadryl; hb 14:56 Iodine; hb - Home Meds: 14:56 Qulipta 30 mg Oral tab for Migraine Prevention [Active]; hb - PMHx: 14:56 DIC; Migraine; hb - PSHx: 14:56 section; hb - Immunization history:: Adult Immunizations up to date. - Social history:: Smoking status: Patient denies any tobacco usage or history of. Screenin:00 [facility] ED Fall Risk Assessment (Adult) History of falling in the last 3 months, jl7 including since admission No falls in past 3 months (0 pts) Confusion or Disorientation No (0 pts) Intoxicated or Sedated No (0 pts) Impaired Gait No (0 pts) Mobility Assist Device Used No (0 pt) Altered Elimination No (0 pt) Score/Fall Risk Level 0 - 2 = Low Risk Oriented to surroundings, Maintained a safe environment. Abuse screen: Denies threats or abuse. Denies injuries from another. Nutritional screening: No deficits noted. Tuberculosis screening: No symptoms or risk factors identified. Assessment: 15:45 General: Appears in no apparent distress. uncomfortable, Behavior is calm, cooperative, eh3 appropriate for age. Pain: Complains of pain in right flank. Neuro: Level of Consciousness is awake, alert, obeys commands, Oriented to person, place, time, situation. Cardiovascular: Capillary refill < 3 seconds Patient's skin is warm and dry. Respiratory: Airway is patent Respiratory effort is even, unlabored, Respiratory pattern is regular, symmetrical. GI: Abdomen is round non-distended, Bowel sounds present X 4 quads. Abd is soft X 4 quads Abdomen is tender to palpation in right lower quadrant. Derm: Skin is healthy with good turgor. Musculoskeletal: Circulation, motion, and sensation intact. Range of motion: intact in all extremities. 16:30 Reassessment: Patient appears in no apparent distress at this time. Patient and/or eh3 family updated on plan of care and expected duration. Pain level reassessed. Patient is alert, oriented x 3, equal unlabored respirations, skin warm/dry/pink. 17:30 Reassessment: Patient appears in no apparent distress at this time. Patient and/or eh3 family updated on plan of care and expected duration. Pain level reassessed. Patient is alert, oriented x 3, equal unlabored respirations, skin warm/dry/pink. Vital Signs: 14:54 BP 123 / 93; Pulse 81; Resp 16; Temp 98.4(O); Pulse Ox 100% on R/A; Weight 54.43 kg; hb Height 5 ft. 7 in. ; Pain 8/10; 15:35 BP 140 / 83; Pulse 74; Resp 18; Pulse Ox 100% on R/A; eh3 16:30 BP 111 / 74; Pulse 64; Resp 18; Pulse Ox 100% on R/A; eh3 14:54 Body Mass Index 18.79 (54.43 kg, 170.18 cm) hb 14:54 Pain Scale: Adult hb ED Course: 14:40 Patient arrived in ED. ts1 14:45 Dick Gomes DO is Attending Physician. ms3 14:56 Triage completed. hb 14:56 Arm band placed on. hb 15:04 Wilfredo Viramontes MD is Attending Physician. ms3 15:27 Abdomen In Process Unspecified. EDMS 15:45 Provided Education on: Use of call dyson . jl7 15:45 Patient has correct armband on for positive identification. jl7 15:52 Domitila Hart, RN is Primary Nurse. eh3 16:20 Initial lab(s) drawn, by me, sent to lab. Urine collected: clean catch specimen, clear. jl7 Inserted saline lock: 20 gauge in left EJ, using aseptic technique. ,using aseptic technique. Inserted by Dr. Viramontes. 17:25 Meenu Montoya MD is Referral Physician. [facility] 18:30 No provider procedures requiring assistance completed. eh3 18:39 IV discontinued, intact, bleeding controlled, No redness/swelling at site. Pressure jl7 dressing applied. Administered Medications: 16:30 Drug: NS 0.9% IV 1000 ml Route: IV; Rate: 1 bolus; Site: left jugular; eh3 17:30 Follow up: IV Status: Completed infusion; IV Intake: 1000ml 3 16:30 Drug: Ondansetron IVP 4 mg Route: IVP; Site: left jugular; eh3 17:30 Follow up: Response: No adverse reaction 3 16:30 Drug: morphine IVP or IV 4 mg Route: IVP; Infused Over: 4 mins; Site: left jugular; eh3 17:30 Follow up: Response: No adverse reaction eh3 17:45 Drug: Dulcolax VT Suppository 10 mg Route: VT; eh3 18:30 Follow up: Response: No adverse reaction 3 17:45 Drug: Lactulose PO 30 grams Volume: 45 ml; Route: PO; eh3 18:30 Follow up: Response: No adverse reaction 3 Medication: 18:48 VIS not applicable for this client. jl7 Intake: 17:30 IV: 1000ml; Total: 1000ml. 3 Outcome: 17:25 Discharge ordered by . natasha 18:39 Discharged to home ambulatory. jl7 18:39 Condition: stable 18:39 Discharge instructions given to patient, Instructed on discharge instructions, follow up and referral plans. medication usage, Demonstrated understanding of instructions, follow-up care, medications, Prescriptions given X 1. 18:40 Patient left the ED. jl7 Signatures: Dispatcher [employer] EDWilfredo Caldwell MD MD cha Baxter, Heather, RN RN hb Leal, Jahala, RN RN jl7 Dick Gomes DO DO ms3 Hart, Domitila, RN RN eh3 Gayatri Ramírez, PAS PAS ts1
[2022-11-09] MEDS ORDERED: BISACODYL 10 MG RECTAL SUPP ONE (17:36)
[2022-11-09] MEDS ORDERED: LACTULOSE 20 GM/30 ML UCUP ONE (17:36)
[2022-11-09 18:58] VITALS: TEMP 98.4; O2SAT 100
[2022-11-09 19:01] VITALS: BP 111/74
== END 2022-11-09 18:40 | disposition home or self-care (01) ==
LOC: ER 14:39
DX: K59.00 Constipation, unspecified (principal); R11.0 Nausea; R10.819 Abdominal tenderness, unspecified site; Z88.8 Allergy status to other drugs, medicaments and biological substances; Z91.048 Other nonmedicinal substance allergy status
CPT/HCPCS: 96361; 85025; 81001; 36415; 81025; 83690; 80053; 74176; 96375; 96374; 99284; J2405; J7030

== ENCOUNTER 2023-01-17 16:50 | Emergency (ER) | payer OTHER ==
--- OUTSIDE RECORDS SUMMARY | 2023-01-17 16:56 | XMS REPORT | Continuity of Care Document ---
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 Added automatic ally from request for surgery [id number] Other Other Disease Active Overview: Univer s constipati constipati 2-06 Formattin ity of on on 00:00: g of this 00 note Medical might be Branch different from the original. Added automatic ally from request for surgery [id number] Family Family Disease Active Overview: Univer s history of history of 2-06 Formattin ity of colon colon 00:00: g of this [place] cancer cancer 00 note Medical might be Branch different from the original. Added automatic ally from request for surgery [id number] Rectal Rectal Disease Active Overview: Univer s bleeding bleeding 2-06 Formattin ity of 00:00: g of this 00 note Medical might be Branch different from the original. Added automatic ally from request for surgery [id number] Abdominal Abdominal Disease Active 2017-04 Uni vers [...] of Hcl adverse 00:00: [place] reaction 00 [facility] Branch IODINE Drug Active Hives Univers AND [...] Date Stop Date Quantity Comments Source History [facility] o f Alcohol Frequency [facility] edical Branch History [facility] o f Alcohol Std Drinks [facility] History [facility] o f Alcohol Binge [facility] Exposure to 2021-07-02 2021-08-01 Not sure University of SARS-CoV-2 (event) 00:00:00 12:43:00 [facility] Alcohol intake 2020-02-15 2020-02-15 Current University of 00:00:00 00:00:00 non-drinker of [facility] alcohol Branch (finding) Tobacco Comment 2018-02-27 2018-02-27 vape use daily Unive rsity of 00:00:00 00:00:00 [facility] Alcohol Comment 2018-02-27 2018-02-27 quit 5 yrs ago, Univ ersity of 00:00:00 00:00:00 was using on [facility] l weekends [place] Cigarette 2018-02-13 2018-02-13 University of pack-years 00:00:00 00:00:00 [facility] Cigarettes smoked 2018-02-13 2018-02-13 Univers ity of current (pack per 00:00:00 00:00:00 [place] ) - Reported Branch Tobacco use and 2018-02-13 2018-02-13 Current user Univers ity of exposure 00:00:00 00:00:00 [facility] History of tobacco 2010-02-27 2015-02-27 Cigarette Smoker University of use 00:00:00 00:00:00 [facility] Sex [birth year] At [birth year] DIONNA Ceja 00:00:00 [facility]:00:00 [facility] Smoking Status Start Date Stop Date Source Former smoker 2018-02-13 00:00:00 2018-02-13 00:00:00 Universi ty [facility] Medications Ordered Filled Start Stop Current Ordering Indication Dosage Frequency Signature Comments Components Source Medication Medication Date Date Medication? Clinician (SIG) Name Name IBUPROFEN Yes Take by Unive rs ORAL 4-20 mouth. ity of 20:19: [address] polyethylen Yes Take by Uni vers e glycol 4-20 mouth. ity of 3350 20:19: [place] (MIRALAX 08 Medical ORAL) [place] IBUPROFEN Yes Take by Unive rs ORAL 4-20 mouth. ity of 20:19: [address] polyethylen Yes Take by Uni vers e glycol 4-20 mouth. ity of 3350 20:19: [place] (MIRALAX 08 Medical ORAL) [place] bisacodyL No 10mg 10 mg, Unive rs (DULCOLAX) 4-20 04-20 Rectal, ity o f suppository 16:45: 16:49 [place]CE, 1 [place] 10 mg 00 :00 dose, On Medical Sat Branch 08/02/21 at 1145, Routine mineral oil [...] 40 mg 00 First dose Medical on Sat08/02/21 at 0900, Until Discontinu ed, Routine inulin 2021- No Take by Univers (FIBER 08-02 mouth. ity of GUMMIES 12:53: 00:00 [place] ORAL) 07 :00 Medical Branch mineral oil 2021-0 Yes [id number] 30mL Take 30 mL Univers oral liquid 4-20 through ity o f 00:00: enteral [place] 00 tube 2 Medical (two) Branch times daily. mineral oil 2021-0 Yes [id number] 30mL Take 30 mL Univers oral liquid [...] 1000mL at 999 Uni vers (NS) bolus 04-1703 mL/hr, ity of infusion 03:15: 06:08 1,000 mL, [place] 1,000 mL 00 :00 IV Medical Infusion, Branch ONCE, 1 dose, 02/15/20 at 2115, RAGHAVENDRA ondansetron 2019-04 Yes [id number] 4mg Take 1 Univers 4 mg 1-03 tablet by ity of disintegrat 00:00: mouth [place] ing tablet 00 every 12 Medic al (twelve) Branch hours as needed for Nausea and Vomiting (N/V). dicyclomine 2019-04 Yes [id number] 10mg Take 1 Univers (BENTYL) 10 1-03 capsule by it y of mg capsule 00:00: [place] (four) Medical times Branch daily as needed for Abdominal pain. ondansetron 2019-04- No [id number] 4mg Take 1 Univers 4 mg 1-03 04-20 tablet by ity of disintegrat 00:00: 00:00 [place] ing tablet 00 :00 every 12 Medic al (twelve) Branch hours as needed for Nausea and Vomiting (N/V). dicyclomine 2019-04 No [id number] 10mg Take 1 Univers (BENTYL) 10 1-03 04-20 capsule by i ty of mg capsule 00:00: 00:00 mouth 4 [place] 00 :00 (four) Medical times Branch daily as needed for Abdominal pain. traMADol 2019- No 50mg 50 mg, Univer s (ULTRAM) 2-16 02-15 Oral, ONCE ity of tablet 50 00:15: 23:13 NOW, 1 [place] mg 00 :00 dose, [facility] 05/30/19 at Branch 1815, RAGHAVENDRA ketorolac 2019- No 30mg 30 mg, Unive rs (TORADOL) 2-15 02-15 Intramuscu ity of injection 23:45: 22:54 lar, ONCE, [place] 30 mg 00 :00 1 dose, Medical [facility] 05/30/19 at 1745, RAGHAVENDRA
Fa culty member approving Restricted medication : LEIGHTON CARLOS traMADol 2019- Yes [id number] 50mg Take 1 Un saqib (ULTRAM) 50 2-15 tablet by ity of mg tablet 00:00: mouth [place] 00 every 6 Medical (six) Branch hours as needed for Pain (scale 7-10). ondansetron 2019- Yes [id number] 4mg Take 1 Univers 4 mg 2-15 tablet by ity of disintegrat 00:00: mouth [place] ing tablet 00 every 8 Medica l (eight) Branch hours as needed for Nausea and Vomiting (N/V). traMADol Yes [id number] 50mg Take 1 Un saqib (ULTRAM) 50 2-15 tablet by ity of mg tablet 00:00: mouth [place] 00 every 6 Medical (six) Branch hours as needed for Pain (scale 7-10). ondansetron Yes [id number] 4mg Take 1 Univers 4 mg 2-15 tablet by ity of disintegrat 00:00: mouth [place] ing tablet 00 every 8 Medica l (eight) Branch hours as needed for Nausea and Vomiting (N/V). traMADol 2021- No [id number] 50mg Take 1 U nivers (ULTRAM) 50 2-15 04-20 tablet by it y of mg tablet 00:00: 00:00 mouth [place] 00 :00 every 6 Medical (six) Branch hours as needed for Pain (scale 7-10). ondansetron 2021- No [id number] 4mg Take 1 Univers 4 mg 2-15 04-20 tablet by ity of disintegrat 00:00: 00:00 [place] tablet 00 :00 every 8 Medica l (eight) Branch hours as needed for Nausea and Vomiting (N/V). cyclobenzap Yes [id number] 10mg Take 1 Univers rine 10 mg 7-27 tablet by ity of tablet 00:00: mouth 2 [place] 00 (two) Medical times Branch daily. sennosides Yes [id number] 8.6mg Take 1 Univers (SENNA) 8.6 7-27 tablet by ity of mg tablet 00:00: mouth [place] 00 daily. Medical Branch sennosides Yes [id number] 8.6mg Take 1 Univers (SENNA) 8.6 7-27 tablet by ity of mg tablet 00:00: mouth [place] 00 daily. Medical Branch sennosides Yes [id number] 8.6mg Take 1 Univers (SENNA) 8.6 7-27 tablet by ity of mg tablet 00:00: mouth [place] 00 daily. Medical Branch cyclobenzap Yes [id number] 10mg Take 1 Univers rine 10 mg 7-27 tablet by ity of tablet 00:00: mouth 2 [place] 00 (two) Medical times Branch daily. sennosides Yes [id number] 8.6mg Take 1 Univers (SENNA) 8.6 7-27 tablet by ity of mg tablet 00:00: mouth [place] 00 daily. Medical Branch cyclobenzap Yes [id number] 10mg Take 1 Univers rine 10 mg 7-27 tablet by ity of tablet 00:00: mouth 2 [place] 00 (two) Medical times Branch daily. sennosides Yes [id number] 8.6mg Take 1 Univers (SENNA) 8.6 7-27 tablet by ity of mg tablet 00:00: mouth [place] 00 daily. Medical Branch cyclobenzap Yes [id number] 10mg Take 1 Univers rine 10 mg 7-27 tablet by ity of tablet 00:00: mouth 2 [place] 00 (two) Medical times Branch daily. sennosides Yes [id number] 8.6mg Take 1 Univers (SENNA) 8.6 7-27 tablet by ity of mg tablet 00:00: mouth [place] 00 daily. Medical Branch cyclobenzap Yes [id number] 10mg Take 1 Univers rine 10 mg 7-27 tablet by ity of tablet 00:00: mouth 2 [place] 00 (two) Medical times Branch daily. sennosides Yes [id number] 8.6mg Take 1 Univers (SENNA) 8.6 7-27 tablet by ity of mg tablet 00:00: mouth [place] 00 daily. Medical Branch cyclobenzap 2021- No [id number] 10mg Take 1 Univers rine 10 mg 7-27 04-20 tablet by ity of tablet 00:00: 00:00 mouth 2 [place] 00 :00 (two) Medical times Branch daily. cyclobenzap 2018- No [id number] 10mg Take 1 Univers rine 10 mg 6-13 07-22 tablet by ity of tablet 00:00: 00:00 mouth 2 [place] 00 :00 (two) Medical times Branch daily. cyclobenzap 2018- No [id number] 10mg Take 1 Univers rine 10 mg 6-13 07-22 tablet by ity of tablet 00:00: 00:00 mouth 2 [place] 00 :00 (two) Medical times Branch daily. polyethylen Yes Take by Uni vers e glycol 5-21 mouth. ity of 3350 17:16: [place] (MIRALAX 14 Medical ORAL) Branch IBUPROFEN Yes Take by Unive rs ORAL 5-21 mouth. ity of 17:16: [place] [address] Medical Branch inulin Yes Take by Univers (FIBER 5-21 mouth. ity of GUMMIES 17:16: [place] ORAL) 14 Medical Branch polyethylen Yes Take by Uni vers e glycol 5-21 mouth. ity of 3350 17:16: [place] (MIRALAX 14 Medical ORAL) Branch IBUPROFEN Yes Take by Unive rs ORAL 5-21 mouth. ity of 17:16: [place] [address] Medical Branch inulin Yes Take by Univers (FIBER 5-21 mouth. ity of GUMMIES 17:16: [place] ORAL) Medical Branch polyethylen Yes Take by Uni vers e glycol 5-21 mouth. ity of 3350 17:16: [place] (MIRALAX 14 Medical ORAL) Branch IBUPROFEN Yes Take by Unive rs ORAL 5-21 mouth. ity of 17:16: [place] [address] Medical Branch inulin Yes Take by Univers (FIBER 5-21 mouth. ity of GUMMIES 17:16: [place] ORAL) Medical Branch polyethylen Yes Take by Uni vers e glycol 5-21 mouth. ity of 3350 17:16: [place] (MIRALAX 14 Medical ORAL) Branch IBUPROFEN Yes Take by Unive rs ORAL 5-21 mouth. ity of 17:16: [place] [address] Medical Branch inulin Yes Take by Univers (FIBER 5-21 mouth. ity of GUMMIES 17:16: [place] ORAL) Medical Branch polyethylen Yes Take by Uni vers e glycol 5-21 mouth. ity of 3350 17:16: [place] (MIRALAX 14 Medical ORAL) Branch IBUPROFEN Yes Take by Unive rs ORAL 5-21 mouth. ity of 17:16: [place] [address] Medical Branch inulin Yes Take by Univers (FIBER 5-21 mouth. ity of GUMMIES 17:16: [place] ORAL) Medical Branch omeprazole Yes [id number] 40mg Take 1 U nivers 40 mg 4-18 capsule by ity of capsule 00:00: mouth [place] 00 daily. Medical Branch omeprazole Yes [id number] 40mg Take 1 U nivers 40 mg 4-18 capsule by ity of capsule 00:00: mouth [place] 00 daily. Medical Branch omeprazole Yes [id number] 40mg Take 1 U nivers 40 mg 4-18 capsule by ity of capsule 00:00: mouth [place] 00 daily. Medical Branch omeprazole Yes [id number] 40mg Take 1 U nivers 40 mg 4-18 capsule by ity of capsule 00:00: mouth [place] 00 daily. Medical Branch omeprazole Yes [id number] 40mg Take 1 U nivers 40 mg 4-18 capsule by ity of capsule 00:00: mouth [place] 00 daily. Medical Branch omeprazole 2021- No [id number] 40mg Take 1 Univers 40 mg 4-18 04-20 capsule by ity of capsule 00:00: 00:00 mouth [place] 00 :00 daily. Medical Branch sennosides 2019- No [id number] 8.6mg Take 1 Univers (SENNA) 8.6 3-22 07-22 tablet by it y of mg tablet 00:00: 00:00 mouth [place] 00 :00 daily. Medical Branch sennosides 2019- No [id number] 8.6mg Take 1 Univers (SENNA) 8.6 3-22 07-22 tablet by it y of mg tablet 00:00: 00:00 mouth [place] 00 :00 daily. Medical Branch Vital Signs Vital Name Observation Time Observation Value Comments Source Systolic blood 2021-08-02 16:54:00 94 mm[Hg] Univer sity of pressure [facility] Diastolic blood 2021-08-02 16:54:00 64 mm[Hg] [facility] Heart rate 2021-08-02 16:54:00 70 /min [facility] Body temperature 2021-08-02 16:54:00 36.06 Zamzam [facility] Respiratory rate 2021-08-02 16:54:00 18 /min [facility] Oxygen saturation in 2021-08-02 16:54:00 100 /min [facility] Arterial blood by [facility] Pulse oximetry Branch Body weight 2021-08-01 17:43:00 52.164 kg [facility] BMI 2021-08-01 17:43:00 18.01 kg/m2 Universi ty of [place] [facility] Systolic blood 2020-02-16 07:00:00 111 mm[Hg] Univer sity of pressure [place] [facility] Diastolic blood 2020-02-16 07:00:00 82 mm[Hg] Unive rsity of pressure [place] [facility] Heart rate 2020-02-16 07:00:00 60 /min Universi ty of [place] [facility] Body temperature 2020-02-16 07:00:00 36.56 Zamzam Univ ersity of [place] [facility] Respiratory rate 2020-02-16 07:00:00 13 /min Univ ersity of [place] [facility] Oxygen saturation in 2020-02-16 07:00:00 100 /min University of Arterial blood by [place] [facility] Pulse oximetry Branch Body weight 2020-02-16 02:59:00 52.164 kg Universi ty [facility] [place] [facility] BMI 2020-02-16 02:59:00 18.01 kg/m2 Universi ty [facility] [place] [facility] Systolic blood 2020-02-16 07:00:00 111 mm[Hg] Univer sity of pressure [place] [facility] Diastolic blood 2020-02-16 07:00:00 82 mm[Hg] Unive rsity of pressure [place] [facility] Heart rate 2020-02-16 07:00:00 60 /min Universi ty [facility] [place] [facility] Body temperature 2020-02-16 07:00:00 36.56 Zamzam Univ ersity of [place] [facility] Respiratory rate 2020-02-16 07:00:00 13 /min Univ ersity of [place] [facility] Oxygen saturation in 2020-02-16 07:00:00 100 /min University of Arterial blood by [place] [facility] Pulse oximetry Branch Body weight 2020-02-16 02:59:00 52.164 kg Universi ty of [place] [facility] BMI 2020-02-16 02:59:00 18.01 kg/m2 Universi ty [facility] [place] [facility] Systolic blood 2019-05-30 23:31:55 110 mm[Hg] Univer sity of pressure [place] [facility] Diastolic blood 2019-05-30 23:31:55 73 mm[Hg] Unive rsity of pressure [place] [facility] Heart rate 2019-05-30 23:31:55 64 /min Universi ty [facility] [place] [facility] Body temperature 2019-05-30 23:31:55 36.94 Zamzam Univ ersity of [place] [facility] Respiratory rate 2019-05-30 23:31:55 16 /min Univ ersity of [place] [facility] Oxygen saturation in 2019-05-30 23:31:55 98 /min University of Arterial blood by [facility] Pulse oximetry Branch Body weight 2019-05-30 22:23:00 52.164 kg Universi ty [facility] [place] [facility] BMI 2019-05-30 22:23:00 18.01 kg/m2 Universi ty [facility] [place] [facility] Systolic blood 2019-05-30 23:31:55 110 mm[Hg] Univer sity of pressure [place] [facility] Diastolic blood 2019-05-30 23:31:55 73 mm[Hg] Unive rsity of pressure [place] [facility] Heart rate 2019-05-30 23:31:55 64 /min Universi ty [facility] [place] [facility] Body temperature 2019-05-30 23:31:55 36.94 Zamzam Univ ersity of [place] [facility] Respiratory rate 2019-05-30 23:31:55 16 /min Univ ersity of [place] [facility] Oxygen saturation in 2019-05-30 23:31:55 98 /min University of Arterial blood by [facility] Pulse oximetry Branch Body weight 2019-05-30 22:23:00 52.164 kg Universi ty [facility] [place] [facility] BMI 2019-05-30 22:23:00 18.01 kg/m2 [facility]i ty [facility] [place] [facility] Systolic blood 2018-11-03 15:02:00 132 mm[Hg] Univer sity of pressure [place] [facility] Diastolic blood 2018-11-03 15:02:00 84 mm[Hg] Unive rsity of pressure [place] [facility] Heart rate 2018-11-03 15:02:00 80 /min [facility]i ty [facility] [place] [facility] Body height 2018-11-03 15:02:00 170.2 cm [facility]i ty [facility] [place] [facility] Body weight 2018-11-03 15:02:00 59.194 kg [facility]i ty [facility] [place] [facility] BMI 2018-11-03 15:02:00 20.44 kg/m2 Universi ty [facility] [place] [facility] Oxygen saturation in 2018-11-03 15:02:00 100 /min University of Arterial blood by [facility] Pulse oximetry Branch Systolic blood 2018-11-03 15:02:00 132 mm[Hg] [facility] Diastolic blood 2018-11-03 15:02:00 84 mm[Hg] [facility] Heart rate 2018-11-03 15:02:00 80 /min [facility] Body height 2018-11-03 15:02:00 170.2 cm [facility] Body weight 2018-11-03 15:02:00 59.194 kg [facility] BMI 2018-11-03 15:02:00 20.44 kg/m2 [facility] Oxygen saturation in 2018-11-03 15:02:00 100 /min [facility] Arterial blood by [facility] Pulse oximetry Branch Procedures Procedure Date / Time Performing Clinician Source Performed XR KUB 2021-08-02 13:15:00 Teresita Whittaker [facility] PHOSPHORUS 2021-08-02 11:58:00 Teresita Whittaker [facility] MAGNESIUM 2021-08-02 11:58:00 [facility]OLIC PANEL 2021-08-02 11:58:00 Teresita Whittaker [facility] (NA, K, CL, CO2, GLUCOSE, Иван Medica l Branch BUN, CREATININE, CA) CBC WITH DIFF 2021-08-02 11:58:00 Teresita Whittaker [facility] XR KUB 2021-08-01 22:54:03 Teresita Whittaker [facility] PHOSPHORUS 2021-08-01 20:17:00 Teresita Whittaker [facility] MAGNESIUM 2021-08-01 20:17:00 Teresita Whittaker [facility] BASIC METABOLIC PANEL 2021-08-01 20:17:00 Teresita Whittaker [facility] (NA, K, CL, CO2, GLUCOSE, Иван Medica l Branch BUN, CREATININE, CA) CBC WITH DIFF 2021-08-01 20:17:00 Teresita Whittaker [facility] COVID-19 (ID NOW RAPID 2021-08-01 20:17:00 Teresita Whittaker [facility] TESTING) [facility] [place] LAB ONLY COVID 2021-08-01 20:17:00 [facility] [place] CT ABDOMEN PELVIS W 2021-08-01 19:05:[address] [facility] CONTRAST [facility] Branch XR KUB 2021-08-01 18:54:00 Teresita Whittaker [facility] TROPONIN I 2020-02-16 07:06:00 Jeffry Sanches [facility] CT ABDOMEN PELVIS WO 2020-02-16 03:27:17 Jeffry Sanches [facility] CONTRAST [facility] Branch URINALYSIS 2020-02-16 03:15:00 Jeffry Sanches [facility] LIPASE 2020-02-16 03:06:00 Jeffry Sanches [facility] TROPONIN I 2020-02-16 03:06:00 Jeffry Sanches [facility] HEPATIC FUNCTION PANEL 2020-02-16 03:06:00 Jeffry Sanches [facility] ([id number]) (ALB,T.PRO,BIL Medical Branch T,BU/BC,ALT,AST,ALK PHOS) BASIC METABOLIC PANEL 2020-02-16 03:06:00 Jeffry Sanches [facility] (NA, K, CL, CO2, GLUCOSE, Medica l Branch BUN, CREATININE, CA) CBC WITH DIFF 2020-02-16 03:06:00 Jeffry Sanches [facility] COVID-19 (ID NOW RAPID 2020-02-16 03:06:00 Myron Jeffry [facility] TESTING) Medical Branch NOTICE OF PRIVACY 2020-02-16 02:52:04 Doctor Unassigned, [facility] PRACTICES [place] [facility] CONSENT/REFUSAL FOR 2020-02-16 02:51:49 Doctor Unassigned, [facility] DIAGNOSIS AND TREATMENT [place] [facility] URINALYSIS 2019-05-30 22:53:00 Leighton Carlos [facility] CT ABDOMEN PELVIS WO 2019-05-30 22:46:58 Leighton Carlos [facility] CONTRAST Medical Branch CONSENT/REFUSAL FOR 2019-05-30 22:19:28 Doctor Unassigned, Felicity [facility] DIAGNOSIS AND TREATMENT [place] [facility] Encounters Start End Encounter Admission Attending Care Care Encounter Source Date/Time Date/Time Type Type Clinicians Facility Department ID 2021-02-11 Emergency [facility] [id number] Univers 02:36:17 ity of [facility] 2021-08-03 2021-08-03 Transition Елена JOSEFINAMike [id number] Univers 00:00:00 00:00:00 of Care Angeli CHOY 350.1.13.10 i ty of [place] [id number] [facility] 403 Branch 2021-08-01 2021-08-02 Inpatient X ALEXANDER [facility] GIANCARLO [id number] Univers 12:44:00 15:45:00 TAQUERIA galdamez [facility] 2021-08-01 2021-08-02 Hospital Juan John 1.2.84 0.114 [id number] Univers 12:44:00 15:45:00 Encounter Taqueria Munoz 350.1.13.[address] [facility] 4.2.7.2.686 [place] [id number] [facility] 097 [place] 2020-04-26 2020-04-26 Outpatient Savanna ZIMMERMAN, [facility] [id number] Univers 14:00:00 14:00:00 CANDACE galdamez of [facility] 2020-02-15 2020-02-16 [facility] [id number] Univers 20:57:00 01:48:00 Jeffry B [place] 350.1.13.10 i ty [place] [id number] [facility] 084 Branch 2020-02-15 2020-02-16 [facility] [id number] 20:57:00 01:48:00 Jeffry B [place] 350.1.13.10 [place] 4.2.7.2.686 [place] [id number] 2019-05-30 2019-05-30 Emergency X TERRANCE [facility] ERT [id number] Univers 16:24:26 17:34:00 LEIGHTON ity of [facility] 2019-05-30 2019-05-30 Emergency BON Carlos [id number] Univers 16:24:26 17:34:00 Leighton [facility] 350.1.13.10 it y of [place] 4.2.7.2.686 [facility] [id number] [address] ([facility]) 2019-05-30 2019-05-30 Emergency Terrance MOSHEREEN [id number] 16:24:26 17:34:00 Leighton [facility] 350.1.13.10 [place] 4.2.7.2.686 [facility] [id number] [address] ([facility]) 2019-03-26 2019-03-26 Patient Lobo, [facility] 1.2.840.114 [id number] [facility] 00:00:00 00:00:00 Secure Msg Car MULTISPEC 350.1.13.10 ity of IALTY 4.2.7.2.686 [facility] [id number] [address] DIABETES CLINIC 2019-03-26 2019-03-26 Patient Lobo, [facility] 1.2.840.114 [id number] 00:00:00 00:00:00 Secure Msg Car MULTISPEC 350.1.13.10 IALTY 4.2.7.2.686 [place] [id number] [place] [address] [facility]ES CLINIC 2018-11-03 2018-11-03 Office Dotiffanyshirleym, [facility] 1.2.840.114 [id number] Univers 09:48:32 17:36:28 Visit Car MULTISPEC 350.1.13.10 ity of IALTY 4.2.7.2.686 [facility] [id number] [address] DIABETES CLINIC 2018-11-03 2018-11-03 Office Dotiffanytram, [facility] 1.2.840.114 [id number] 09:48:32 17:36:28 Visit Car MULTISPEC 350.1.13.10 IALTY 4.2.7.2.686 [place] [id number] [place] 011 [facility] Results Test Description Test Time Test Comments Results Result Comments Source BASIC METABOLIC PANEL (NA, K, CL, CO2, GLUCOSE, BUN, 2021-07 12:29:16 CREATININE, CA) Test Item Value Reference Range Interpretation Comme nts NA (test code = 2793421072) 139 mmol/L 135-145 K (test code = 3366354083) 4.0 mmol/L 3.5-5.0 CL (test code = 7062885449) 108 mmol/L 98-108 CO2 TOTAL (test code = 24 mmol/L 23-31 6100251925) AGAP (test code = 8768577214) 2-16 BUN (test code = 3527672705) 11 mg/dL 7-23 GLUCOSE (test code = 2854432036) 99 mg/dL 70-110 CREATININE (test code = 0.70 mg/dL 0.50-1.04 4549607544) CALCIUM (test code = 2681364738) 8.7 mg/dL 8.6-10.6 eGFR (test code = 2554732960) mL/min/1.73m2 ERNESTO (test code = ERNESTO) Association [...] Range Interpretation Comments MAGNESIUM (test code = 8246947949) 2.1 mg/dL 1.7-2.4 Lab Interpretation (test code = Normal 05892-1) [facility] Test Item Value Reference Range Interpretation Comments PHOSPHORUS (test code = 4506373149) 4.0 mg/dL 2.5-5.0 Lab Interpretation (test code = Normal 82658-9) [facility] [id number] 12:13:35 Test Item Value Reference Range Interpretation Comments WBC (test code = See_Comment [Automated 3990-2) message] The sy stem which generated this result transmitted reference range : 4.30 - 11.10 10*3/?L. The reference range was not used to interpret this result as normal/abnormal . RBC (test code = See_Comment [Automated 681-8) message] The sy stem which generated this [...] RDW-SD (test code = 41.7 fL 39.0-49.9 45511-7) RDW-CV (test code = 13.1 % 12.0-15.5 788-0) PLT (test code = See_Comment [Automated 227-3) message] The sy stem which generated this result transmitted reference range : 166 - 358 10*3/ ?L. The reference r rosa was not used to interpret this result as normal/abnormal . MPV (test code = 10.5 fL 9.5-12.9 97007-5) NRBC/100 WBC (test See_Comment [Automat ed code = 3409573276) message] The system which generated this result transmitted reference range : 0.0 - 10.0 /100 WBCs. The refer ence range was not u sed to interpret th is result as normal/abnormal . NRBC x10^3 (test code <0.01 See_Comment [Auto mated = 1293068790) message] The s ystem which generated this result transmitted reference range : 10*3/?L. The reference range was not used to interpret this result as normal/abnormal . GRAN MAT (NEUT) % 91.0 % (test code = 770-8) IMM GRAN % (test code 0.10 % = 9217260581) LYMPH % (test code = 2.5 % 736-9) MONO % (test code = 5.6 % 5905-5) EOS % (test code = 0.6 % 713-8) BASO % (test code = 0.2 % 706-2) GRAN MAT x10^3(ANC) 9.18 10*3/uL 1.88-7.09 H (test code = 9339475128) IMM GRAN x10^3 (test <0.03 0.00-0.06 code = 5161534782) LYMPH x10^3 (test code 0.25 10*3/uL 1.32-3.29 L = 731-0) MONO x10^3 (test code 0.56 10*3/uL 0.33-0.92 = 742-7) EOS x10^3 (test code = 0.06 10*3/uL 0.03-0.39 711-2) BASO x10^3 (test code <0.03 0.01-0.07 = 704-7) Lab Interpretation Abnormal (test code = 10651-3) [facility] METABOLIC PANEL (NA, K, CL, CO2, GLUCOSE, BUN, CREATININE, CA)2021-08-01 20:59:23 Test Item Value Reference Range Interpretation Comments NA (test code = 140 mmol/L 135-145 4731327180) K (test code = 4.3 mmol/L 3.5-5.0 3243793460) CL (test code = 111 mmol/L 98-108 H 9233584471) CO2 TOTAL (test code = 24 mmol/L 23-31 8884175459) AGAP (test code = 2-16 6429889652) BUN (test code = 11 mg/dL 7-23 6108942094) GLUCOSE (test code = 73 mg/dL 70-110 0237635948) CREATININE (test code = 0.58 mg/dL 0.50-1.04 5556796975) CALCIUM (test code = 8.5 mg/dL 8.6-10.6 L 3039611941) eGFR (test code = mL/min/1.73m2 8990232477) ERNESTO (test code = ERNESTO) Association of [...] tests). Lab Interpretation Abnormal (test code = 07229-1) [facility]59:23 Test Item Value Reference Range Interpretation Comments PHOSPHORUS (test code = 0006663564) 3.7 mg/dL 2.5-5.0 Lab Interpretation (test code = Normal 56833-7) [facility] 20:59:23 Test Item Value Reference Range Interpretation Comments MAGNESIUM (test code = 3188836884) 2.2 mg/dL 1.7-2.4 Lab Interpretation (test code = Normal 80034-7) [facility] [id number] 20:33:20 Test Item Value Reference Range Interpretation Comments WBC (test code = See_Comment [Automated 7190-2) message] The sy stem which generated this result transmitted reference range : 4.30 - 11.10 10*3/?L. The reference range was not used to interpret this result as normal/abnormal . RBC (test code = See_Comment [Automated 519-8) message] The sy stem which generated this [...] RDW-SD (test code = 42.5 fL 39.0-49.9 23968-7) RDW-CV (test code = 12.9 % 12.0-15.5 788-0) PLT (test code = See_Comment [Automated 077-3) message] The sy stem which generated this result transmitted reference range : 166 - 358 10*3/ ?L. The reference r rosa was not used to interpret this result as normal/abnormal . MPV (test code = 11.0 fL 9.5-12.9 31887-9) NRBC/100 WBC (test See_Comment [Automat ed code = 1359758098) message] The system which generated this result transmitted reference range : 0.0 - 10.0 /100 WBCs. The refer ence range was not u sed to interpret th is result as normal/abnormal . NRBC x10^3 (test code <0.01 See_Comment [Auto mated = 2625439267) message] The s ystem which generated this result transmitted reference range : 10*3/?L. The reference range was not used to interpret this result as normal/abnormal . GRAN MAT (NEUT) % 74.3 % (test code = 770-8) IMM GRAN % (test code 0.30 % = 2724697656) LYMPH % (test code = 15.1 % 736-9) MONO % (test code = 9.3 % 5905-5) EOS % (test code = 0.7 % 713-8) BASO % (test code = 0.3 % 706-2) GRAN MAT x10^3(ANC) 5.58 10*3/uL 1.88-7.09 (test code = 0208784137) IMM GRAN x10^3 (test <0.03 0.00-0.06 code = 4831616137) LYMPH x10^3 (test code 1.13 10*3/uL 1.32-3.29 L = 731-0) MONO x10^3 (test code 0.70 10*3/uL 0.33-0.92 = 742-7) EOS x10^3 (test code = 0.05 10*3/uL 0.03-0.39 711-2) BASO x10^3 (test code <0.03 0.01-0.07 = 704-7) Lab Interpretation Abnormal (test code = 20075-6) [facility]MARGERAL[facility] CENTERVERNON [id number] 07:38:00 Test Item Value Reference Range Interpretation Comments TROPONIN I (test <0.012 See_Comment [Automated code = 2075549490) message] The system which generated this result [...] ? Lab Interpretation Normal (test code = 62965-2) [facility] HospitalTRDENYMike [id number] 04:38:00 Test Item Value Reference Range Interpretation Comments TROPONIN I (test <0.012 See_Comment [Automated code = 4477428590) message] The system which generated this result [...] ? Lab Interpretation Normal (test code = 12546-9) [facility] WO [id number] 04:30:09 1. ?Punctate nonobstructive bilateral renal calculi. 2. ?Mild hepatomegaly. Status post cholecystectomy and hysterectomy. Preliminary Report Dictated by Resident: Ramonita Guzman ?MD Reynaldo., have reviewed this study and agree with theabove report. EXAM: CT ABDOMEN AND PELVIS WITHOUT CONTRAST HISTORY: 34-year-old female complaints of nausea, vomiting and diarrhea forthe past 3 days. COMPARISON: CT abdomen-pelvis dated 05/30/2019. DOSE: 191 mGy-cm. TECHNIQUE AND FINDINGS: Contiguous axial imaging from the level of the lungbases through the pubic symphysis was performed without the intr avenousadministration of contrast. Coronal and sagittal reconstructions wereobtained. ?Auto mA and/or iterative reconstruction were used to reduceradiation dose. FINDINGS: LOWER THORAX: The lungs basesare clear. No cardiomegaly. The leftdiaphragm is slightly elevated, unchanged. LIVER: The liver is enlarged, measures 18.1 cm in craniocaudal dimension.Normal contour. No focal hepatic lesions are identified within limitationof a noncontrast study. GALLBLADDER AND BILIARY TREE: Surgical absence of thegallbladder is noted.Slight prominence of the common bile [...] sagittal reconstructions wereobtained. Auto mA and/or iterative reconstruction were used to reduceradiation dose.FINDINGS:LOWER THORAX: The lungs bases are clear. No cardiomegaly. The leftdiaphragm is slightly elevated, unchanged.LIVER: The liver is enlarged, foeigemn99.1 cm in craniocaudal dimension.Normal contour. No focal hepatic lesions are identified within limitationof a noncontrast study.GALLBLADDER AND BILIARY TREE: Surgical absence of the gallbladder is not ed.Slight prominence of the common bile duct, measuring up to 0.6 cm, likelyrelated to reservoir phenomenon, secondary to prior cholecystectomy.SPLEEN: No splenomegaly.PANCREAS: No ductal dilation or ma sses.ADRENAL GLANDS: No adrenal nodules.KIDNEYS: Multiple punctate hypodensities [...] calculi.2. Mild hepatomegaly. Status post cholecystectomy and hysterectomy.Preli minary Report Dictated by Resident: Ramonita Chan MD., have reviewed this study and agree with theabove report.[facility] HospitalUrinalysis2020-11-03 04:27:00 Test Item Value Reference Range Interpretation Comments APPEARANCE (test code = Clear Clear 0311709953) COLOR (test code = Yellow Yellow 9423148528) PH (test code = 4.8-8.0 8053962731) SP GRAVITY (test code = 1.003-1.030 8304926759) GLU U QUAL (test code = Normal Normal 0675343789) BLOOD (test code = 1+ Negative A 8351334880) KETONES (test code = Negative Negative 9808701533) PROTEIN (test code = Negative Negative 2887-8) UROBILIN (test code = Normal Normal 0814979024) BILIRUBIN (test code = Negative Negative 8098716552) NITRITE (test code = Negative Negative 2411170377) LE[place]AVELLE (test code = Negative Negative 0640003173) RBC/HPF (test code = See_Comment [Autom ated message] 8118515776) The system [employer] generated this result transmitted ref erence range: 0 - 3 HP F. The reference range was not used to int erpret this result as normal/abnormal . WBC/HPF (test code = <1 See_Comment [Autom ated message] 1692221436) The system [employer] generated this result transmitted ref erence range: 0 - 5 HP F. The reference range was not used to int erpret this result as normal/abnormal . BACTERIA (test code = Negative Negative 2515135974) SQ EPITH (test code = HPF 1754711819) HYAL CAST (test code = See_Comment [Aut omated message] 4054154456) The system [employer] generated this result transmitted ref erence range: <=2 LPF. The reference range was not used to int erpret this result as normal/abnormal . Lab Interpretation (test Abnormal code = 51336-9) [facility]COVID[facility] (ID NOW RAPID TESTING)2020-02-16 03:45:00 Test Item Value Reference Range Interpretation Comments SARS-CoV-2 Rapid ID NOW Not Detected Not Detected (test code = 20510-4) ERNESTO (test code = ERNESTO) ID NOW COVID-19 Assay is an isothermal nucleic acid amplification test intended for the qualitative detection of nucleic acid from SARS-CoV-2 viral RNA in nasopharyngeal (CUT OFF [place]) specimens. It is used under Emergency Use [...] indicated. Lab Interpretation Normal (test code = 15096-5) [facility] Metabolic Panel (NA, K, CL, CO2, GLUCOSE, BUN, CREATININE, CA)2020-02-16 03:43:00 Test Item Value Reference Range Interpretation Comments NA (test code = 138 mmol/L 135-145 6653150673) K (test code = 4.1 mmol/L 3.5-5 2922444634) CL (test code = 102 mmol/L 98-108 5343267525) CO2 TOTAL (test code = 27 mmol/L 23-31 2158201783) AGAP (test code = 2-16 1730433700) BUN (test code = 9 mg/dL 7-23 3218432259) GLUCOSE (test code = 97 mg/dL 70-110 4381169299) CREATININE (test code 0.66 mg/dL 0.5-1.04 = 5743032167) CALCIUM (test code = 10.1 mg/dL 8.6-10.6 9473437430) eGFR Calculation mL/min/1.73m2 (Non-) (test code = 7086880628) eGFR Calculation mL/min/1.73m2 () (test code = 0341411434) ERNESTO (test code = ERNESTO) Association of [...] Interpretation Comments TOTAL BILI (test code = 0387535413) 0.8 mg/dL 0.1-1.1 BILI UNCON (test code = 2057412475) 0.7 mg/dL 0.1-1.1 BILI CONJ (test code = 7213892560) 0.0 mg/dL 0-0.3 T PROTEIN (test code = 5960043798) 8.4 g/dL 6.3-8.2 H ALBUMIN (test code = 0153251542) 5.0 g/dL 3.5-5 ALK PHOS (test code = 4892034858) 62 U/L 34-122 ALTv (test code = 1742-6) 19 U/L 5-35 AST(SGOT) (test code = 4907530366) 28 U/L 13-40 Lab Interpretation (test code = Abnormal 93762-0) [facility] HospitalLipase [id number] 03:43:00 Test Item Value Reference Range Interpretation Comments LIPASE (test code = 5322186045) 109 U/L 0-220 Lab Interpretation (test code = Normal 67566-2) [facility]CBC with [id number] 03:29:00 Test Item Value Reference Range Interpretation [...] (test code = 38.7 fL 39-49.9 L 25804-7) RDW-CV (test code = 12.4 % 12-15.5 788-0) PLT (test code = See_Comment [Automated 777-3) message] The sy stem which generated this result transmitted reference range : 166 - 358 10*3/ ?L. The reference r rosa was not used to interpret this result as normal/abnormal . MPV (test code = 11.8 fL 9.5-12.9 15775-9) NRBC/100 WBC (test See_Comment [Automat ed code = 8149919478) message] The system which generated this result transmitted reference range : 0.0 - 10.0 /100 WBCs. The refer ence range was not u sed to interpret th is result as normal/abnormal . NRBC x10^3 (test code <0.01 See_Comment [Auto mated = 9915805928) message] The s ystem which generated this result transmitted reference range : 10*3/?L. The reference range was not used to interpret this result as normal/abnormal . GRAN MAT (NEUT) % 50.8 % (test code = 770-8) IMM GRAN % (test code 0.20 % = 3349278192) LYMPH % (test code = 37.4 % 736-9) MONO % (test code = 9.2 % 5905-5) EOS % (test code = 1.9 % 713-8) BASO % (test code = 0.5 % 706-2) GRAN MAT x10^3(ANC) 2.94 10*3/uL 1.88-7.09 (test code = 3064329323) IMM GRAN x10^3 (test <0.03 0-0.06 code = 0602138406) LYMPH x10^3 (test code 2.16 10*3/uL 1.32-3.29 = 731-0) MONO x10^3 (test code 0.53 10*3/uL 0.33-0.92 = 742-7) EOS x10^3 (test code = 0.11 10*3/uL 0.03-0.39 711-2) BASO x10^3 (test code 0.03 10*3/uL 0.01-0.07 = 704-7) Lab Interpretation Abnormal (test code = 61226-0) [facility]IN[facility]IS2020-02-15 23:14:00 Test Item Value Reference Range Interpretation Comments APPEARANCE (test code = Clear Clear 8179829235) COLOR (test code = Yellow Yellow 0060318365) PH (test code = 4.8-8.0 5173899164) SP GRAVITY (test code = 1.003-1.030 5784277036) GLU U QUAL (test code = Normal Normal 3085073748) BLOOD (test code = Negative Negative 1449032500) KETONES (test code = 20 mg/dL Negative A 6325668243) PROTEIN (test code = Negative Negative 2887-8) UROBILIN (test code = Normal Normal 1914847591) BILIRUBIN (test code = Negative Negative 2896260203) NITRITE (test code = Negative Negative 1529297372) LE[place]AVEL[place] (test code = 25/uL Negative A 2075581149) RBC/HPF (test code = See_Comment [Autom ated message] 8658684305) The system [employer] generated this result transmitted ref erence range: 0 - 3 HP F. The reference range was not used to int erpret this result as normal/abnormal . WBC/HPF (test code = See_Comment [Autom ated message] 3230697788) The system [employer] generated this result transmitted ref erence range: 0 - 5 HP F. The reference range was not used to int erpret this result as normal/abnormal . BACTERIA (test code = Few Negative A 2893369251) MUCOUS (test code = Slight Negative LPF A 3669318308) SQ EPITH (test code = See_Comment [Auto mated message] 1300352416) The system [employer] generated this result transmitted ref erence range: <=2 HPF. The reference range was not used to int erpret this result as normal/abnormal . Lab Interpretation (test Abnormal code = 07100-9) [facility] WO [id number] 22:53:42 1. No acute findings in the abdomen or pelvis.2. Status post cholecystectomy and hysterectomy RL: 501 AFC: [id number] End of report ORDERING CLINICIAN: LEIGHTON CARLOS [...] pelvis.2. Status post cholecystectomy and hysterectomyRL: [id number]: [id number] of reportEle ctronically signed by Taqueria Beck at 05/30/2019 4:53 PMUnHunt Regional [facility] at [facility]"
[2023-01-17] MEDS ORDERED: NA CHLORIDE 0.9% 1,000 ML ONE ×2 (17:23→20:04)
[2023-01-17] MEDS ORDERED: ONDANSETRON 4 MG/2 ML VIAL ONE (17:23)
[2023-01-17] MEDS ORDERED: FAMOTIDINE 20 MG/2 ML VIAL IV ONE (17:23)
[2023-01-17] MEDS ORDERED: MORPHINE 4 MG/ML SYR ONE (17:23)
[2023-01-17 17:53] LABS: Specific Gravity 1.008 (1.005-1.030)
[2023-01-17 17:55] LABS: Absolute Lymphocytes (CBC) 1.2 K/uL (0.7-4.9); Hematocrit 42.6 % (36.0-45.0); Lymphocytes % 14.5 % (15.3-44.8); MPV 9.5 fL (7.6-11.3); Platelets 271 thou/uL (152-406); RBC Red Blood Cell Count 4.96 M/uL (3.86-4.86)
[2023-01-17 18:08] LABS: Albumin 4.6 g/dL (3.4-5.0); Bilirubin Total 0.3 mg/dL (0.2-1.0); Potassium 3.7 mEq/L (3.5-5.1); Protein, Total 8.3 g/dL (6.4-8.2)
--- NOTE | 2023-01-17 18:44 | RAD REPORT ---
EXAM DESCRIPTION: CT - Abdomen Pelvis Wo Contrast - 01/17/2023 6:11 pm CLINICAL HISTORY: Abdominal pain. abd pain COMPARISON: Abdomen Pelvis Wo Contrast dated 11/09/2022 TECHNIQUE: CT imaging of the abdomen and pelvis was performed without contrast. Solid organ, bowel a nd vascular assessment is limited due to lack of IV and oral contrast. All CT scans are performed using dose optimization technique as appropriate and may include automated exposure control or mA/KV adjustment according to patient size. FINDINGS: The lower lung jacobsen are clear.Mild chronic elevation of the left hemidiaphragm anteriorl y. Cholecystectomy clips. The liver, spleen, pancreas, adrenal glands and left kidney are within normal limits for a limited no n-contrast examination.Mild right hydronephrosis. No bowel obstruction, free air, free fluid or abscess. There is severe fecal retention throughout the colon seen. The appendix is normal. The osseous structures are within normal limits. IMPRESSION: Quite significant fecal retention throughout the colon. Mild right hydronephrosis. A limited non-contrast examination was performed as detailed.
[2023-01-17] MEDS ORDERED: BISACODYL 10 MG RECTAL SUPP ONE (19:10)
[2023-01-17] MEDS ORDERED: LACTULOSE 20 GM/30 ML UCUP ONE (19:11)
[2023-01-17] MEDS ORDERED: GOLYTELY 4000 ML ONE (19:41)
--- NOTE | 2023-01-17 19:49 | EDPHYS ---
Physician Documentation [facility] Name: Veronica Valentin Age: 37 yrs Sex: Female : 1985 Arrival Date: 01/17/2023 Time: 16:50 Bed 6 Private MD: ED Physician Wilfredo Viramontes HPI: 01/17 19:42 This 37 yrs old Female presents to ER via Ambulatory with complaints of natasha Abdominal Pain. 19:42 The patient presents with abdominal pain in the upper abdomen, in the lower abdomen, natasha abdominal distention in the upper abdomen, in the lower abdomen. Onset: The symptoms/episode began/occurred 3 day(s) ago. The symptoms do not radiate. Associated signs and symptoms: Pertinent positives: constipation. The symptoms are described as constant, crampy. Modifying factors: The symptoms are alleviated by nothing, the symptoms are aggravated by movement, pressure, walking. Severity of pain: At its worst the pain was moderate in the emergency department the pain is unchanged. Historical: - Allergies: 17:01 Benadryl; ld1 17:01 Iodine; ld1 17:39 Phenergan; kc6 - PMHx: 17:01 DIC; Migraine; ld1 - PSHx: 17:01 section; ld1 17:39 Cholecystectomy; kc6 - Immunization history:: Adult Immunizations up to date. - Social history:: Smoking status: Patient denies any tobacco usage or history of. Patient/guardian denies using alcohol. - Family history:: not pertinent. ROS: 19:42 Constitutional: Negative for fever, chills, and weight loss, Eyes: Negative for injury, natasha pain, redness, and discharge, ENT: Negative for injury, pain, and discharge, Neck: Negative for injury, pain, and swelling, Cardiovascular: Negative for chest pain, palpitations, and edema, Respiratory: Negative for shortness of breath, cough, wheezing, and pleuritic chest pain, Back: Negative for injury and pain, : Negative for injury, bleeding, discharge, and swelling, MS/Extremity: Negative for injury and deformity, Skin: Negative for injury, rash, and discoloration, Neuro: Negative for headache, weakness, numbness, tingling, and seizure, Psych: Negative for depression, anxiety, suicide ideation, homicidal ideation, and hallucinations, Allergy/Immunology: Negative for hives, rash, and allergies, Endocrine: Negative for neck swelling, polydipsia, polyuria, polyphagia, and marked weight changes, Hematologic/Lymphatic: Negative for swollen nodes, abnormal bleeding, and unusual bruising, 19:42 Abdomen/GI: Positive for abdominal pain, constipation, abdominal cramps, abdominal distension, of the right upper quadrant, left upper quadrant, right lower quadrant and left lower quadrant, Exam: 19:42 Constitutional: This is a well developed, well nourished patient who is awake, alert, natasha and in no acute distress. Head/Face: Normocephalic, atraumatic. Eyes: Pupils equal round and reactive to light, extra-ocular motions intact. Lids and lashes normal. Conjunctiva and sclera are non-icteric and not injected. Cornea within normal limits. Periorbital areas with no swelling, redness, or edema. ENT: Nares patent. No nasal discharge, no septal abnormalities noted. Tympanic membranes are normal and external auditory canals are clear. Oropharynx with no redness, swelling, or masses, exudates, or evidence of obstruction, uvula midline. Mucous membranes moist. Neck: Trachea midline, no thyromegaly or masses palpated, and no cervical lymphadenopathy. Supple, full range of motion without nuchal rigidity, or vertebral point tenderness. No Meningismus. Chest/axilla: Normal chest wall appearance and motion. Nontender with no deformity. No lesions are appreciated. Cardiovascular: Regular rate and rhythm with a normal S1 and S2. No gallops, murmurs, or rubs. Normal PMI, no JVD. No pulse deficits. Respiratory: Lungs have equal breath sounds bilaterally, clear to auscultation and percussion. No rales, rhonchi or wheezes noted. No increased work of breathing, no retractions or nasal flaring. Back: No spinal tenderness. No costovertebral tenderness. Full range of motion. Female : Normal external genitalia. Skin: Warm, dry with normal turgor. Normal color with no rashes, no lesions, and no evidence of cellulitis. MS/ Extremity: Pulses equal, no cyanosis. Neurovascular intact. Full, normal range of motion. Neuro: Awake and alert, GCS 15, oriented to person, place, time, and situation. Cranial nerves II-XII grossly intact. Motor strength 5/5 in all extremities. Sensory grossly intact. Cerebellar exam normal. Normal gait. Psych: Awake, alert, with orientation to person, place and time. Behavior, mood, and affect are within normal limits. 19:42 Abdomen/GI: Inspection: abdomen appears normal, Bowel sounds: active, all quadrants, Palpation: moderate abdominal tenderness, in all quadrants, Liver: no appreciated palpable abnormalities, Hernia: not appreciated, Vital Signs: 17:00 BP 136 / 101; Pulse 87; Resp 18; Temp 98.2(O); Pulse Ox 100% on R/A; Weight 54.43 kg; ld1 Height 5 ft. 7 in. ; Pain 9/10; 17:40 BP 131 / 84; Pulse 85; Resp 19 S; Pulse Ox 99% on R/A; kc6 18:40 BP 101 / 58; Pulse 75; Resp 16 S; Pulse Ox 100% on R/A; kc6 17:00 Body Mass Index 18.79 (54.43 kg, 170.18 cm) ld1 17:00 Pain Scale: Adult ld1 MDM: 16:58 Patient medically screened. sb4 10 17:46 Order name: Test, Urine; Complete Time: 18:54 EDMS 01/17 17:46 Order name: Comprehensive Metabolic Panel; Complete Time: 18:54 EDMS 01/17 17:46 Order name: Lipase; Complete Time: 18:54 EDMS 01/17 17:46 Order name: CBC with Automated Diff; Complete Time: 18:54 EDMS 01/17 17:46 Order name: Abdomen ; Complete Time: 18:54 EDMS 01/17 17:05 Order name: IV Saline Lock; Complete Time: 17:33 sb4 01/17 17:05 Order name: Labs collected and sent; Complete Time: 17:33 sb4 01/17 19:14 Order name: Misc. Order: go-lytely 8 oz every 4 hrs; Complete Time: 20:17 natasha Administered Medications: 17:33 Drug: NS 0.9% IV 1000 ml IV at 1 bolus Per protocol; 1000 mL bolus Route: IV; Rate: 1 kc6 bolus; Site: left antecubital; 17:33 Drug: Famotidine IVP 20 mg IVP once; dilute with 10 mL 0.9% NaCl; give over 2 minutes kc6 Route: IVP; Site: left antecubital; 18:56 Follow up: Response: No adverse reaction kc6 17:33 Drug: Ondansetron IVP 4 mg IVP once; over 2 minutes Route: IVP; Site: left antecubital; kc6 18:55 Follow up: Response: No adverse reaction; Nausea is decreased; Vomiting decreased kc6 17:33 Drug: morphine IVP or IV 4 mg IVP once over 4 mins Route: IVP; Infused Over: 4 mins; kc6 Site: left antecubital; 18:55 Follow up: Response: No adverse reaction; Pain is unchanged, physician notified; RASS: [facility] Alert and Calm (0) 19:03 Drug: Dulcolax [place] Suppository 10 mg [place] once Route: NC; kc6 19:03 Drug: Lactulose PO 60 grams 45 ml PO once Volume: 45 ml; Route: PO; kc6 19:58 Not Given (Patient Refused): ns 0.9% 1000 ml IV at 1 bolus Per protocol; 1000 mL bolus jb4 Disposition Summary: 01/17/23 19:48 Discharge Ordered Notes: Location: Home natasha Problem: new natasha Symptoms: have improved natasha Condition: Stable natasha Diagnosis - Abdominal pain, Generalized natasha - Constipation, unspecified natasha - Constipation natasha Followup: natasha - With: Private Physician - When: 2 - 3 days - Reason: Recheck today's complaints, Continuance of care, Re-evaluation by your physician Followup: natasha - With: Meenu Montoya MD - When: 2 - 3 days - Reason: Recheck today's complaints, Re-evaluation by your physician Discharge Instructions: - Discharge Summary Sheet natasha - Abdominal Pain, Adult natasha - Constipation, Adult natasha - Constipation, Adult, [id number] natasha - Abdominal Pain, Adult, Rped-[id number] [facility] Forms: - Medication Reconciliation Form [facility] - Thank You Letter [facility] - Antibiotic Education natasha - Prescription Opioid Use natasha - Patient Portal Instructions [facility] - Leadership Thank You Letter [facility] Prescriptions: - Dulcolax (bisacodyl) 10 mg Rectal suppository - insert 1 suppository RECTAL route every 12 hours for 7 days; 14 suppository; [facility] Refills: 0, Product Selection Permitted - Golytely [id number] -5.86 gram Oral Recon Soln - take 240 milliliter ORAL route every 10 minutes until fecal effluent is clear; natasha 4000 milliliter; Refills: 0, Product Selection Permitted - ondansetron 4 mg Oral Tablet,disintegrating - take 1 tablet ORAL route every 6 to 8 hours as needed for nausea and vomiting; natasha 20 tablet; Refills: 0, Product Selection Permitted - Cipro 250 mg Oral tablet - take 1 tablet ORAL route every 12 hours; 14 tablet; Refills: 0, Product natasha Selection Permitted - Lactulose 10 gram/15 mL Oral Solution - take 30 milliliters ORAL route once daily; 300 milliliter; Refills: 0, Product natasha Selection Permitted - dicyclomine 10 mg/5 mL Oral solution - take 10 milliliters ORAL route 4 times per day; 160 milliliter; Refills: 0, natasha Product Selection Permitted Signatures: Dispatcher [employer] EDMS Wilfredo Viramontes MD MD cha Sims, Lauren RN RN ld1 Kelsey Gutierrez RN RN kc6 Viktoria Ozuna PA-C PAMouna sb4 Onesimo Bernstein RN jb4 Corrections: (The following items were deleted from the chart) 17:46 17:37 Abdomen ordered. EDMS EDMS 17:57 17:54 Abdomen Pelvis W Con+CT.RAD.BRZ ordered. EDMS EDMS
--- NOTE | 2023-01-17 19:49 | ER ---
Nurse's Notes [facility] Name: Veronica Valentin Age: 37 yrs Sex: Female : 1985 Arrival Date: 01/17/2023 Time: 16:50 Bed 6 Private MD: Diagnosis: Abdominal pain, Generalized;Constipation, unspecified;Constipation Presentation: 01/17 17:00 Chief complaint: Patient states: ABD pain since 0800 this morning. Nausea. Coronavirus ld1 screen: At this time, the client does not indicate any symptoms associated with coronavirus-19. Ebola Screen: No symptoms or risks identified at this time. Initial Sepsis Screen: Does the patient meet any 2 criteria? No. Patient's initial sepsis screen is negative. Does the patient have a suspected source of infection? No. Patient's initial sepsis screen is negative. Risk Assessment: Do you want to hurt yourself or someone else? Patient reports no desire to harm self or others. Onset of symptoms was January 17, 2023. 17:00 Method Of Arrival: Ambulatory ld1 17:00 Acuity: BREANNA 3 ld1 Triage Assessment: 17:01 General: Appears in no apparent distress. comfortable, Behavior is calm, cooperative, ld1 appropriate for age. Pain: Complains of pain in abdomen Pain does not radiate. Pain currently is 9 out of 10 on a pain scale. Quality of pain is described as throbbing, Pain began suddenly. EENT: No signs and/or symptoms were reported regarding the EENT system. Neuro: Level of Consciousness is awake, alert, obeys commands, Oriented to person, place, time, situation. Cardiovascular: Capillary refill < 3 seconds Patient's skin is warm and dry. Respiratory: Airway is patent Respiratory effort is even, unlabored. GI: Abdomen is round non-distended, Reports nausea. : No signs and/or symptoms were reported regarding the genitourinary system. Derm: No signs and/or symptoms reported regarding the dermatologic system. Musculoskeletal: No signs and/or symptoms reported regarding the musculoskeletal system. Historical: - Allergies: 17:01 Benadryl; ld1 17:01 Iodine; ld1 17:39 Phenergan; kc6 - PMHx: 17:01 DIC; Migraine; ld1 - PSHx: 17:01 section; ld1 17:39 Cholecystectomy; kc6 - Immunization history:: Adult Immunizations up to date. - Social history:: Smoking status: Patient denies any tobacco usage or history of. Patient/guardian denies using alcohol. - Family history:: not pertinent. Screenin:15 [facility] ED Fall Risk Assessment (Adult) History of falling in the last 3 months, kc6 including since admission No falls in past 3 months (0 pts) Confusion or Disorientation No (0 pts) Intoxicated or Sedated No (0 pts) Impaired Gait No (0 pts) Mobility Assist Device Used No (0 pt) Altered Elimination No (0 pt) Score/Fall Risk Level 0 - 2 = Low Risk. Abuse screen: Denies threats or abuse. Denies injuries from another. Nutritional screening: No deficits noted. Tuberculosis screening: No symptoms or risk factors identified. Assessment: 17:15 General: Appears in no apparent distress. uncomfortable, slender, well groomed, kc6 Behavior is calm, cooperative, appropriate for age, crying. Pain: Complains of pain in abdomen. Neuro: Level of Consciousness is awake, alert, obeys commands, Oriented to person, place, time, situation, Appropriate for age. Cardiovascular: Capillary refill < 3 seconds. Respiratory: Airway is patent Trachea midline Respiratory effort is even, unlabored, Respiratory pattern is regular, symmetrical. GI: Abdomen is flat, non-distended, Bowel sounds present X 4 quads. Abd is soft X 4 quads Reports nausea, vomiting, Patient currently denies diarrhea. : No signs and/or symptoms were reported regarding the genitourinary system. Urine is clear. EENT: No signs and/or symptoms were reported regarding the EENT system. Derm: No signs and/or symptoms reported regarding the dermatologic system. Skin is intact, is healthy with good turgor, Skin is pink, warm \T\ dry. Musculoskeletal: No signs and/or symptoms reported regarding the musculoskeletal system. Circulation, motion, and sensation intact. Capillary refill < 3 seconds, Range of motion: intact in all extremities. 18:40 Reassessment: Patient appears in no apparent distress at this time. No changes from kc6 previously documented assessment. Patient and/or family updated on plan of care and expected duration. Pain level reassessed. Patient is alert, oriented x 3, equal unlabored respirations, skin warm/dry/pink. 19:15 Reassessment: Patient appears in no apparent distress at this time. Patient and/or jb4 family updated on plan of care and expected duration. Pain level reassessed. Patient is alert, oriented x 3, equal unlabored respirations, skin warm/dry/pink. 20:23 Reassessment: Patient appears in no apparent distress at this time. Patient and/or jb4 family updated on plan of care and expected duration. Pain level reassessed. Patient is alert, oriented x 3, equal unlabored respirations, skin warm/dry/pink. Vital Signs: 17:00 BP 136 / 101; Pulse 87; Resp 18; Temp 98.2(O); Pulse Ox 100% on R/A; Weight 54.43 kg; ld1 Height 5 ft. 7 in. ; Pain 9/10; 17:40 BP 131 / 84; Pulse 85; Resp 19 S; Pulse Ox 99% on R/A; kc6 18:40 BP 101 / 58; Pulse 75; Resp 16 S; Pulse Ox 100% on R/A; kc6 17:00 Body Mass Index 18.79 (54.43 kg, 170.18 cm) ld1 17:00 Pain Scale: Adult ld1 ED Course: 16:54 Patient arrived in ED. mg5 16:56 Viktor[facility] Ozuna [facility]C [facility] sb4 16:56 Wilfredo Viramontes MD is Attending Physician. sb4 17:01 Triage completed. ld1 17:01 Arm band placed on right wrist. ld1 17:15 Patient has correct armband on for positive identification. Bed in low position. Call kc6 light in reach. Side rails up X 1. Client placed on continuous cardiac and pulse oximetry monitoring. NIBP monitoring applied. 17:33 Kelsey Gutierrez RN is Primary Nurse. kc6 17:33 Inserted saline lock: 22 gauge in left antecubital area, using aseptic technique. Blood kc6 collected. Patient maintains SpO2 saturation greater than 95% on room air. 18:12 Abdomen In Process Unspecified. EDMS 19:47 Meenu Montoya MD is Referral Physician. natasha 20:27 No provider procedures requiring assistance completed. IV discontinued, intact, jb4 bleeding controlled, No redness/swelling at site. Pressure dressing applied. Administered Medications: 17:33 Drug: NS 0.9% IV 1000 ml IV at 1 bolus Per protocol; 1000 mL bolus Route: IV; Rate: 1 kc6 bolus; Site: left antecubital; 17:33 Drug: Famotidine IVP 20 mg IVP once; dilute with 10 mL 0.9% NaCl; give over 2 minutes kc6 Route: IVP; Site: left antecubital; 18:56 Follow up: Response: No adverse reaction kc6 17:33 Drug: Ondansetron IVP 4 mg IVP once; over 2 minutes Route: IVP; Site: left antecubital; kc6 18:55 Follow up: Response: No adverse reaction; Nausea is decreased; Vomiting decreased kc6 17:33 Drug: morphine IVP or IV 4 mg IVP once over 4 mins Route: IVP; Infused Over: 4 mins; kc6 Site: left antecubital; 18:55 Follow up: Response: No adverse reaction; Pain is unchanged, physician notified; RASS: kc6 Alert and Calm (0) 19:03 Drug: Dulcolax [place] Suppository 10 mg [place] once Route: [place]; kc6 19:03 Drug: Lactulose PO 60 grams 45 ml PO once Volume: 45 ml; Route: PO; kc6 19:58 Not Given (Patient Refused): ns 0.9% 1000 ml IV at 1 bolus Per protocol; 1000 mL bolus jb4 Outcome: 19:48 Discharge ordered by MD. kaur 20:25 Patient left the ED. 20:27 Discharged to home ambulatory, jb4 20:27 Condition: stable 20:27 Discharge instructions given to patient, Instructed on discharge instructions, follow up and referral plans. medication usage, Demonstrated understanding of instructions, follow-up care, medications, Prescriptions given X 5 Signatures: Dispatcher [employer] Cassi Vincent RN RN kl Anderson, Corey, MD MD cha Bryson, James, RN RN jb4 Julia Gomes RN RN ld1 Campbell, Kaitlyn, RN RN [id number] Viktoria Ozuna PA-C PA-C sb4 Teodora Torres mg5
[2023-01-17 22:00] VITALS: TEMP 98.2
[2023-01-17 22:03] VITALS: BP 101/58; O2SAT 100
== END 2023-01-17 20:25 | disposition home or self-care (01) ==
LOC: ER 16:50
DX: K59.00 Constipation, unspecified (principal); Z88.8 Allergy status to other drugs, medicaments and biological substances; Z91.048 Other nonmedicinal substance allergy status
CPT/HCPCS: 85025; 36415; 81025; 83690; 80053; 74176; 96375; 96374; 99285; J2405; J7030 ×2